=== PATIENT | male | born 1960 | race African-American/Black ===

== ENCOUNTER 2016-09-22 00:49 | Emergency (ER) | payer OTHER ==
[2016-09-22 00:57] VITALS: TEMP 97.6
--- NOTE | 2016-09-22 01:48 | ED ---
Psych HPI - General Chief Complaint: Psychiatric Symptoms Stated Complaint: Hearing Voices/Suicidal Time Seen by Provider: 09/22/16 01:14 Source: patient Mode of arrival: ambulatory - History of Present Illness Initial Comments: This patient is a 56-year-old man who presents stating that he is having hallucinations. He states that he is seeing people and hearing voices that are telling him to harm himself. The patient states that he had been doing relatively well until last night when he "relapsed and smoked a marijuana cigarette that I think was laced with cocaine." Since that time the patient states he is having hallucinations. Complaint: other -: hour(s) Associated Psychiatric Symptoms: auditory hallucinations Worsens With: drug use Context: recent drug abuse Associated Symptoms: denies other symptoms - Related Data Home Medications Medication Instructions Recorded Confirmed Acyclovir [Zovirax] 400 mg PO BID 09/22/16 09/22/16 Citalopram Hydrobromide [CeleXA] 40 mg PO DAILY 09/22/16 09/22/16 Mirtazapine [Remeron] 15 mg PO HS 09/22/16 09/22/16 QUEtiapine FUMARATE [Seroquel Xr] 400 mg PO HS 09/22/16 09/22/16 buPROPion HCL [Wellbutrin XL] 150 mg PO DAILY 09/22/16 09/22/16 risperiDONE [RisperDAL] 1 mg PO DAILY 09/22/16 09/22/16 Allergies Allergy/AdvReac Type Severity Reaction Status Date / Time No Known Allergies Allergy Verified 09/22/16 00:57 Review of Systems ROS Statement: Those systems with pertinent positive or pertinent negative responses have been documented in the HPI. ROS Other: All systems not noted in ROS Statement are negative. Constitutional: Denies: fever, chills Respiratory: Denies: cough, dyspnea Cardiovascular: Denies: chest pain Gastrointestinal: Denies: abdominal pain, vomiting, diarrhea Musculoskeletal: Denies: back pain Neurological: Denies: headache, weakness Psychiatric: Reports: anxiety, auditory hallucinations, visual hallucinations, suicidal thoughts Past Medical History Additional Past Medical History / Comment(s): bipolar, depression, schizophrenia History of Any Multi-Drug Resistant Organisms: None Reported Past Surgical History: No Surgical Hx Reported Past Psychological History: Anxiety, Bipolar, Depression, Schizophrenia Smoking Status: Current every day smoker Past Alcohol Use History: None Reported Past Drug Use History: None Reported General Exam Limitations: no limitations General appearance: alert, in no apparent distress Respiratory exam: Present: normal lung sounds bilaterally. Absent: respiratory distress, wheezes, rales, rhonchi, stridor Cardiovascular Exam: Present: regular rate, normal rhythm, normal heart sounds. Absent: systolic murmur, diastolic murmur, rubs, gallop Extremities exam: Present: normal inspection, normal capillary refill. Absent: pedal edema, calf tenderness Back exam: Present: normal inspection. Absent: CVA tenderness (R), CVA tenderness (L) Neurological exam: Present: alert, normal gait Psychiatric exam: Present: normal affect. Absent: agitated, anxious, flat affect, manic, homicidal ideation, suicidal ideation Skin exam: Present: warm, dry, intact, normal color. Absent: rash Course Vital Signs 09/22/16 00:52 Temperature 97.6 F Pulse Rate 87 Respiratory 18 Rate Blood Pressure 123/79 O2 Sat by Pulse 96 Oximetry Disposition Clinical Impression: Substance abuse, Schizophrenia Disposition: HOME SELF-CARE Condition: Fair Instructions: Polysubstance Abuse (ED), Schizophrenia (ED) Referrals: None,Stated [Primary Care Provider] - 1-2 days Sixto Pierre MD [STAFF PHYSICIAN] - 1-2 days
[2016-09-22] MEDS ORDERED: OLANZapine ODT 5 MG TAB PO STA (02:47)
[2016-09-22] MEDS ORDERED: risperiDONE 1 MG TAB PO STA (02:49)
[2016-09-22] MEDS ORDERED: buPROPion XL 150 MG TAB.ER.24H PO STA (02:49)
[2016-09-22 03:28] VITALS: BP 117/68; PULSE 82; RESP 16
== END 2016-09-22 03:28 | disposition home or self-care (01) ==
LOC: EC 00:49
DX: F12.10 Cannabis abuse, uncomplicated (principal); F20.9 Schizophrenia, unspecified; F31.9 Bipolar disorder, unspecified; F17.200 Nicotine dependence, unspecified, uncomplicated; Z79.899 Other long term (current) drug therapy
CPT/HCPCS: 82075; 99285

== ENCOUNTER 2016-09-22 13:24 | Inpatient (IN) | payer MEDICAID, OTHER ==
[2016-09-22] MEDS ORDERED: MAGNESIUM HYDROXIDE 2,400 MG/10 ML CUP PO PRN (15:52)
[2016-09-22] MEDS ORDERED: ACETAMINOPHEN TAB 325 MG TAB PO PRN (15:52)
[2016-09-22] MEDS ORDERED: MAG HYDROX/AL HYDROX/SIMETH 30 ML CUP PO PRN (15:52)
[2016-09-22] MEDS: NICOTINE 7MG/24HR PATCH TRANSDERM SCH (16:03)
[2016-09-22] MEDS: QUEtiapine XR 200 MG TAB.ER.24H PO SCH (21:45)
[2016-09-23] MEDS ORDERED: DULoxetine HCL 60 MG CAPSULE.DR PO SCH (09:00)
[2016-09-23] MEDS: NICOTINE 7MG/24HR PATCH TRANSDERM SCH (10:23)
--- NOTE | 2016-09-23 16:39 | HP ---
DATE OF ADMISSION: IDENTIFYING DATA: Patient is a 56-year-old single -[place] male who is currently staying with a friend. Patient has been on Social Security income for the last 4 years for mental illness. Patient was admitted to the mental health unit through the emergency room on a petition and certificate. HISTORY OF PRESENT ILLNESS: Patient stated that he was recently at [facility] for 6 weeks for alcohol and cocaine rehab, and after he was released from [facility] he was [facility], and he decided to move out a couple of days ago with a friend. Patient stated, "I just had one beer and I smoked one joint, but I didn't realize that it was laced with cocaine." Today patient presented with feeling depressed, hopeless, helpless, overwhelmed, not sleeping at night, endorsing auditory hallucination; however, he denied any command voices. He stated that he was suicidal yesterday because "I didn't have my psych medication." I did review the [facility] recorded, and it seems that the patient was seen by Dr. Owens on September 18, 2016, for evaluation; however, patient at that time did not bring any medication with him and did not bring any pill bottles, and that is why he was not given any prescription. He was asked to come back in one week from September 18 with his pill bottles with him. Patient stated that he has had "bipolar schizophrenia all my life." When I did ask him to tell me what symptoms, patient was very vague in his presentation. He stated that he has a lot of paranoia and suspicious feelings, hearing voices, no motivation or interest to do anything. He has been having trouble falling asleep and staying asleep. Appetite has been fluctuating. He gained 10 pounds over the last year. He does feel that people are out to get him. I tried to find what triggered this episode and why he decided to leave the [facility]. Patient said, "I am very tired now because I didn't sleep. I just need to be back on my medication." He claimed that he could not afford financially the [facility], and that is why he decided to move out stay with a friend. PAST PSYCHIATRIC HISTORY: He had one suicide attempt at age 50, but according to him he has been having chronic suicidal ideation most of his life. According to him, he has had at least 12 to 13 previous inpatient psychiatric hospitalizations. His last psych hospitalization was 3 months ago in [place]. Diagnoses were major depression with psychotic features, polysubstance use disorder. Patient is currently at [facility]. PAST MEDICATION: He was on Cymbalta and Remeron in the past. SUBSTANCE ABUSE HISTORY: Extensive substance abuse history. 1. Alcohol. He started drinking alcohol at age 15. The last time he drank alcohol was just a couple of days before his admission. According to him, he just had one beer. 2. Marijuana. He has been smoking marijuana since age 15. Last use was 2 days ago. 3. Cocaine. He started using cocaine at age 22, and he stated that he did not use it for 6 months; however, patient's urine drug screen is positive for marijuana and cocaine. Patient has had at least 12 inpatient rehab program admissions. His last inpatient rehab admission was a couple of months ago at [facility], but he stated he has been in the [facility] more than 8 times, [facility] twice, and he was [facility] from [facility]. FAMILY HISTORY OF PSYCHIATRIC ILLNESS: There is no history of schizophrenia or mental illness in the family, but most of his family members have issues and problems with substances and alcohol. SOCIAL HISTORY: Patient was born in [place]. He had 2 brothers and 2 sisters. He was raised by his mother and grandmother. When he was 10 years of age he moved to [place], and he stated that he was living in a rough neighborhood. He moved from [place] to [place] in 1972 and he was living in [place]. He finished high school in [place]. 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 Last time he worked was 3 or 4 years ago, and since then he has been on Social Security income due to mental illness. He never has been . He has one son who is currently living in [place]. MEDICAL HISTORY: Patient had surgery for a right inguinal hernia. Also he had surgery for priapism. ALLERGIES: ASPIRIN. LEGAL PROBLEMS: He has had extensive legal problems since age 19, but he denied any probation or current charge for at least 6 years. Patient stated that he was arrested for stealing or drug related problem. [facility] and [facility] for one year. MENTAL STATUS EXAMINATION: Patient presented as an -[place] male who looks his stated age, dressed up in hospital gown, very evasive, guarded. He does give mixed answers. He is focusing about wanting to get all his medication that he was on before. He gave good eye contact. Speech is coherent. He reported that he has been hearing voices, but "it's not command in nature to hurt" himself or anybody else. A lot of paranoia and suspicious feeling, persecutory delusions that people are out to get him. He expressed feeling hopeless, helpless and severely depressed. Affect is blunted. He presented with chronic suicidal ideation but was able to contract for safety. His thinking is very concrete, but his associations were coherent and logical. His insight to his substance abuse is questionable, but in general insight and judgment are fair. Patient did ask for help when he needed it. Cognitive function is grossly intact. STRENGTHS: Patient is able to ask for help when he needs it and he has income. WEAKNESSES: Patient has extensive history of substance abuse, recurrent mental health issues. Currently he is homeless. DIAGNOSES: 1. Major depression, recurrent, with psychotic feature. 2. Alcohol use disorder. 3. Cocaine use disorder. 4. Cannabis use disorder. RECOMMENDATION: Patient was admitted already to the mental health unit. Will continue inpatient hospitalization for treatment of depressive symptoms and ( ) disorder. Patient is willing to sign himself in voluntarily. Suicide precautions with 15-minute checks. I will put him back on Seroquel XR 400 mg for the paranoia and the auditory hallucinations, Celexa for depression. Will encourage patient to participate in therapeutic groups and activities groups, evaluate patient on a daily basis and see if there is response to treatment. Will discuss his discharge plan. Most likely it will be [facility].
[2016-09-23] MEDS ORDERED: MIRTAZAPINE 15 MG TAB PO SCH (21:00)
[2016-09-23] MEDS: ACYCLOVIR 200 MG CAP PO SCH (21:35)
[2016-09-23] MEDS: QUEtiapine XR 200 MG TAB.ER.24H PO SCH (21:36)
[2016-09-24 06:32] VITALS: BP 136/86; PULSE 59; RESP 18; TEMP 97.7
[2016-09-24] MEDS ORDERED: CITALOPRAM HYDROBROMIDE 20 MG TAB PO SCH (09:00)
--- NOTE | 2016-09-24 09:13 | P.CONS ---
History of Present Illness - Reason for Consult Consult date: 09/23/16 Medical management - History of Present Illness This is a 56-year-old -Z[place] male with past history of bipolar, schizophrenia, anxiety, tobacco use and dependence quitting a couple weeks ago, cocaine and marijuana use. Patient states that he has been off his medications because every time he took them in his stomach was bothering him. He states his stomach is bothering him because he is not eating right. Patient states that he is feeling much better at the time of this evaluation because he slept last night. He also states that he came into the hospital alone. According to documentation patient was on petition and cert from [facility] because he was hearing voices and feeling suicidal. TSH 1.460. Patient denies any physical concerns at this time. Review of Systems Psychiatric: Reports depression, Reports hallucinations, Reports insomnia, Reports suicidal ideation Past Medical History Past Medical History: No Reported History History of Any Multi-Drug Resistant Organisms: None Reported Past Surgical History: Hernia Repair Additional Past Surgical History / Comment(s): Right inguinal hernia repair Past Anesthesia/Blood Transfusion Reactions: No Reported Reaction Past Psychological History: Anxiety, Bipolar, Depression, Schizophrenia Smoking Status: Current every day smoker Past Alcohol Use History: None Reported Additional Past Alcohol Use History / Comment(s): Patient is a smoker one pack per day since he was 17 years of age. He states he quit smoking a couple weeks ago. He uses alcohol occasionally. He also smokes weed. He has used cocaine in the past but did not inject it. He has been clean and went to [place] in the past. Past Drug Use History: None Reported - Past Family History Father Additional Family Medical History / Comment(s): Father at age 73 from a motor vehicle accident. Mother Additional Family Medical History / Comment(s): Mom at age 56 from breast cancer with brain tumor and she also had mental health issues. Sister(s) Additional Family Medical History / Comment(s): Patient has 2 sisters with no major medical problems. Brother(s) Additional Family Medical History / Comment(s): Patient has 1 brother that was killed. Patient did not give details. Son(s) Additional Family Medical History / Comment(s): He has one son with no major medical problems. Medications and Allergies Home Medications Medication Instructions Recorded Confirmed Type Acyclovir [Zovirax] 400 mg PO BID 09/22/16 09/22/16 History Citalopram Hydrobromide [CeleXA] 40 mg PO DAILY 09/22/16 09/22/16 History Clotrimazole [Lotrimin AF] 1 applic TOPICAL DAILY 09/22/16 09/22/16 History Hydrocortisone Cream 1 applic TOPICAL DAILY 09/22/16 09/22/16 History [Hydrocortisone 1% Cream] Mirtazapine [Remeron] 15 mg PO HS 09/22/16 09/22/16 History QUEtiapine FUMARATE [Seroquel Xr] 400 mg PO HS 09/22/16 09/22/16 History buPROPion HCL [Wellbutrin XL] 150 mg PO DAILY 09/22/16 09/22/16 History clonazePAM [KlonoPIN] 1 mg PO QAM 09/22/16 09/22/16 History risperiDONE [RisperDAL] 1 mg PO HS 09/22/16 09/22/16 History Allergies Allergy/AdvReac Type Severity Reaction Status Date / Time peanut [Peanut Butter] Allergy Unknown Verified 09/22/16 15:43 tomato Allergy Unknown Verified 09/22/16 15:43 seafood Allergy Unknown Uncoded 09/22/16 15:43 Physical Exam Vitals: Vital Signs Temp Pulse Resp BP 09/23/16 05:54 98.1 F 61 16 144/82 09/22/16 15:33 98.4 F 78 17 129/78 Intake and Output 09/22/16 09/23/16 09/23/16 22:59 06:59 14:59 Other: Weight 88.7 kg Gen: This is a 56-year-old after the [place] male. He is cooperative and appears to be in no acute distress. HEENT: Head is atraumatic, normocephalic. Pupils equal, round. Sclerae is anicteric. NECK: Supple. No JVD. No lymphadenopathy. No thyromegaly. LUNGS: Clear to auscultation. No wheezes or rhonchi. No intercostal retractions. HEART: Regular rate and rhythm. No murmur. ABDOMEN: Soft. Bowel sounds are present. No masses. No tenderness. EXTREMITIES: No pedal edema. No calf tenderness. NEUROLOGICAL: Patient is awake, alert and oriented x3. Cranial nerves 2 through 12 are grossly intact. Assessment and Plan Plan: 1. Depression with suicidal ideation a patient with history of schizophrenia bipolar. Patient admitted to the mental health unit. Continue current plan of care. 2. Tobacco use and dependence. Continue nicotine patch. 3. History of cocaine use and marijuana use. Continue as in #1. Impression and plan of care have been directed as dictated by the signing physician. Niesha Frias nurse practitioner acting as scribe for signing physician. Time with Patient: Greater than 30
[2016-09-24] MEDS: ACYCLOVIR 200 MG CAP PO SCH (10:24)
[2016-09-24] MEDS: NICOTINE 7MG/24HR PATCH TRANSDERM SCH (10:26)
--- NOTE | 2016-09-25 10:40 | DS ---
DATE OF ADMISSION: 09/22/2016 DATE OF DISCHARGE: 09/24/2016 Consult physician: Mei. Consulting provider: Niesha Frias. Consult reason: For medical management. Do you want consulting provider notified? Yes. DISCHARGE DIAGNOSES: 1. Cocaine use disorder. Cocaine induced psychotic symptoms. 2. Alcohol use disorder. 3. Cannabis use disorder. 4. History of major depression, recurrent, with psychosis. Brief summary of the admission Notes: Patient was admitted to the mental health unit from the emergency room as he was presented with petition saying that the patient has been suicidal. Patient was recently in [place] for 6 weeks for Cocaine and alcohol rehab, then he was released to [facility]. Patient decided to move out from the [facility] 2 days ago and he did relapse on alcohol and cocaine and marijuana. For complete history and physical exam, please refer to my initial evaluation. HOSPITAL COURSE: Patient was admitted to the mental health unit on voluntary basis. Patient was minimizing his addiction, despite I did review with him the urine drug screen that was positive for marijuana and cocaine. He said, "I did not know that my marijuana was laced with cocaine." He stated that he did relapse because he was not on his psychotropic medication. I did discuss with him his previous psychotropic medications according to him, he was stable on Celexa 40 mg daily, mirtazapine 15 mg at bedtime and Seroquel XR 400 mg. Also he claims that he was on Wellbutrin 150 mg in the morning, Klonopin 1 mg in the morning and Risperdal 1 mg at bedtime. I did discuss with him that it seems that he is taking 3 different antidepressant medication and 2 different antipsychotic in addition, with his history of substance abuse I will not recommend any benzodiazepine. Patient was receptive and I did start him on Celexa only 20 mg as I did not see feel that he is depressed and I kept him on the same dose of the Seroquel 400 mg and Remeron 15 mg for sleep. During his 24 hours stay the patient was lying in bed just up to asking for medication or for his needs. Very vague regarding his extensive legal program; however, we did receive call from the [employer] department that there is a warrant for his arrest. As the patient was not suicidal or homicide, patient was discharged from the mental health unit to the [facility] archivist department. Mental status exam at the time of the discharge, patient is alert. He was sitting calmly, good eye contact. Speech is spontaneous. Thought process is linear. He is reporting no homicidal or suicide ideation, intent or plan. He does not feel hopeless or helpless. There is no evidence of hypomania or lizett. There is no evidence of psychosis. His insight regarding his extensive drug use is very limited. Cognitive ability has been remained stable after the hospitalization. PLAN: 1. Patient will be discharged from the mental health unit today. Patient will be picked up by the [facility] department. 2. Patient has an appointment at [facility] on September 25 at 1:00 p.m. 3. Patient was instructed to abstain from marijuana, cocaine and alcohol, I did discuss with him that he needs to go back to the [facility] to finish his recovery but he was reluctant. 4. Patient was given one-month supply for escitalopram 20 mg in the morning and Remeron 15 mg at bedtime and Seroquel XR 400 mg as mood stabilizer and for psychosis. 5. There is no eminent safety risk and patient is appropriate for transition back to outpatient care. 6. Patient condition at the time of the discharge, stable.
== END 2016-09-24 16:10 | disposition home or self-care (01) | DRG 897 ==
LOC: 3MHU 14:22
PROVIDERS: ADMIT Psychiatry & Neurology Psychiatry; ATTEND Psychiatry & Neurology Psychiatry
DX: F14.151 Cocaine abuse with cocaine-induced psychotic disorder with hallucinations (principal); R45.851 Suicidal ideations; F20.9 Schizophrenia, unspecified; F10.10 Alcohol abuse, uncomplicated; F12.10 Cannabis abuse, uncomplicated; F17.200 Nicotine dependence, unspecified, uncomplicated; F41.9 Anxiety disorder, unspecified; F32.9 Major depressive disorder, single episode, unspecified; G47.00 Insomnia, unspecified; Z79.899 Other long term (current) drug therapy
CPT/HCPCS: 84443

== ENCOUNTER 2016-09-25 03:15 | Emergency (ER) | payer OTHER ==
--- NOTE | 2016-09-25 03:36 | ED ---
General Adult HPI - General Chief complaint: Psychiatric Symptoms Stated complaint: Mental Health Time Seen by Provider: 09/25/16 03:24 Source: patient, RN notes reviewed Mode of arrival: ambulatory Limitations: no limitations - History of Present Illness Initial comments: Patient is a pleasant 56-year-old male presenting to the emergency Department with depression and suicidal thoughts. Patient was recently admitted to the psychiatric unit. Patient was discharged today went to skilled nursing. Patient states he is more depressed now. Patient admits to drinking one beer and smoking marijuana that may have been laced. Patient has thoughts of cutting himself with a knife and had to take the knife away from himself. Patient does have anger issues and thoughts of harming people however no specific person. Patient does see people who tell him to harm himself. No physical complaints. - Related Data Home Medications Medication Instructions Recorded Confirmed Acyclovir [Zovirax] 400 mg PO BID 09/22/16 09/22/16 Clotrimazole [Lotrimin AF] 1 applic TOPICAL DAILY 09/22/16 09/22/16 Hydrocortisone Cream 1 applic TOPICAL DAILY 09/22/16 09/22/16 [Hydrocortisone 1% Cream] Previous Rx's Medication Instructions Recorded Citalopram Hydrobromide [CeleXA] 20 mg PO DAILY 30 Days 09/24/16 Mirtazapine [Remeron] 15 mg PO HS 30 Days 09/24/16 QUEtiapine FUMARATE [Seroquel Xr] 400 mg PO HS 30 Days 09/24/16 Allergies Allergy/AdvReac Type Severity Reaction Status Date / Time peanut [Peanut Butter] Allergy Unknown Verified 09/25/16 03:22 tomato Allergy Unknown Verified 09/25/16 03:22 seafood Allergy Unknown Uncoded 09/25/16 03:22 Review of Systems ROS Statement: Those systems with pertinent positive or pertinent negative responses have been documented in the HPI. ROS Other: All systems not noted in ROS Statement are negative. Constitutional: Denies: fever Eyes: Denies: eye pain ENT: Denies: ear pain Respiratory: Denies: cough Cardiovascular: Denies: chest pain Endocrine: Denies: fatigue Gastrointestinal: Denies: abdominal pain Genitourinary: Denies: dysuria Musculoskeletal: Denies: back pain Skin: Denies: rash Neurological: Denies: headache Psychiatric: Reports: depression, visual hallucinations, suicidal thoughts Past Medical History Past Medical History: No Reported History Additional Past Medical History / Comment(s): bipolar, depression, schizophrenia History of Any Multi-Drug Resistant Organisms: None Reported Past Surgical History: Hernia Repair Additional Past Surgical History / Comment(s): Right inguinal hernia repair Past Anesthesia/Blood Transfusion Reactions: No Reported Reaction Past Psychological History: Anxiety, Bipolar, Depression, Schizophrenia Smoking Status: Current every day smoker Past Alcohol Use History: None Reported Additional Past Alcohol Use History / Comment(s): Patient is a smoker one pack per day since he was 17 years of age. He states he quit smoking a couple weeks ago. He uses alcohol occasionally. He also smokes weed. He has used cocaine in the past but did not inject it. He has been clean and went to [place] in the past. Past Drug Use History: None Reported - Past Family History Father Additional Family Medical History / Comment(s): Father at age 73 from a motor vehicle accident. Mother Additional Family Medical History / Comment(s): Mom at age 56 from breast cancer with brain tumor and she also had mental health issues. Sister(s) Additional Family Medical History / Comment(s): Patient has 2 sisters with no major medical problems. Brother(s) Additional Family Medical History / Comment(s): Patient has 1 brother that was killed. Patient did not give details. Son(s) Additional Family Medical History / Comment(s): He has one son with no major medical problems. General Exam Limitations: no limitations General appearance: alert, in no apparent distress Head exam: Present: atraumatic Eye exam: Present: normal appearance, PERRL ENT exam: Present: normal oropharynx Neck exam: Present: normal inspection Respiratory exam: Present: normal lung sounds bilaterally Cardiovascular Exam: Present: regular rate, normal rhythm GI/Abdominal exam: Present: soft. Absent: tenderness Extremities exam: Present: normal inspection Neurological exam: Present: alert Psychiatric exam: Present: flat affect Skin exam: Absent: rash Course Vital Signs 09/25/16 03:20 Temperature 98.6 F Pulse Rate 100 Respiratory 16 Rate Blood Pressure 147/62 O2 Sat by Pulse 96 Oximetry - Reevaluation(s) Reevaluation #1: 09/25/16 06:54 Patient seen by mental health services who did set up patient for an appointment today at 1 PM [facility] and recommends discharge. Patient updated. Patient contracts for safety. Medical Decision Making - Lab Data Lab Results 09/25/16 Range/Units 03:15 Urine Opiates Screen Not Detected (NotDetected) Ur Oxycodone Screen Not Detected (NotDetected) Urine Methadone Screen Not Detected (NotDetected) Ur Propoxyphene Screen Not Detected (NotDetected) Ur Barbiturates Screen Not Detected (NotDetected) U Tricyclic Antidepress Detected H (NotDetected) Ur Phencyclidine Scrn Not Detected (NotDetected) Ur Amphetamines Screen Not Detected (NotDetected) U Methamphetamines Scrn Not Detected (NotDetected) U Benzodiazepines Scrn Not Detected (NotDetected) Urine Cocaine Screen Detected H (NotDetected) U Marijuana (THC) Screen Not Detected (NotDetected) Disposition Clinical Impression: Depression Disposition: HOME SELF-CARE Condition: Stable Instructions: Depression (ED) Additional Instructions: Please follow-up today with [facility] at 1:00 as planned. Return for thoughts of harming yourself, thoughts of harming others, worsening symptoms or other concerns. No drug or alcohol use. Referrals: None,Stated [Primary Care Provider] - 1-2 days Mira Rasheed MD [STAFF PHYSICIAN] - 1-2 days Sixto Pierre MD [STAFF PHYSICIAN] - 1-2 days
[2016-09-25 07:03] VITALS: BP 131/70; PULSE 74; RESP 18; TEMP 97.6
== END 2016-09-25 07:03 | disposition home or self-care (01) ==
LOC: EC 03:15
DX: F31.9 Bipolar disorder, unspecified (principal); F20.9 Schizophrenia, unspecified; F41.9 Anxiety disorder, unspecified; Z87.891 Personal history of nicotine dependence; Z79.899 Other long term (current) drug therapy; Z91.010 Allergy to peanuts; Z91.013 Allergy to seafood; Z91.018 Allergy to other foods
CPT/HCPCS: 80306; 82075; 99284

== ENCOUNTER 2016-10-14 07:55 | Emergency (ER) | payer OTHER ==
[2016-10-14 08:01] VITALS: TEMP 97.4
--- NOTE | 2016-10-14 08:53 | ED ---
Psych HPI - General Chief Complaint: Psychiatric Symptoms Stated Complaint: mental health Time Seen by Provider: 10/14/16 08:10 Source: patient, RN notes reviewed Mode of arrival: ambulatory - History of Present Illness Initial Comments: This is a 56-year-old male with history depression who presents with complaints of feeling suicidal and actually homicidal. He also states voices are telling him to hurt people and himself this is been going on for about 3 days and this is in spite of taking medications. Patient also feels unsafe. He is demonstrate some paranoia. He denies alcohol or street drugs no fevers chills sweats no trauma or other symptoms. MD Complaint: suicidal ideation, feels depressed, other - Related Data Home Medications Medication Instructions Recorded Confirmed Clotrimazole [Lotrimin AF] 1 applic TOPICAL DAILY PRN 09/22/16 10/14/16 Hydrocortisone Cream 1 applic TOPICAL DAILY PRN 09/22/16 10/14/16 [Hydrocortisone 1% Cream] Benztropine Mesylate [Cogentin] 2 mg PO BID 10/14/16 10/14/16 DULoxetine HCL [Cymbalta] 60 mg PO DAILY 10/14/16 10/14/16 fluPHENAZine DECANOATE [Prolixin 25 mg IM Q7D 10/14/16 10/14/16 Decanoate] Previous Rx's Medication Instructions Recorded Mirtazapine [Remeron] 15 mg PO HS 30 Days 09/24/16 QUEtiapine FUMARATE [Seroquel Xr] 400 mg PO HS 30 Days 09/24/16 Allergies Allergy/AdvReac Type Severity Reaction Status Date / Time peanut [Peanut Butter] Allergy Unknown Verified 10/14/16 08:13 tomato Allergy Unknown Verified 10/14/16 08:13 seafood Allergy Unknown Uncoded 10/14/16 07:57 Review of Systems ROS Statement: Those systems with pertinent positive or pertinent negative responses have been documented in the HPI. ROS Other: All systems not noted in ROS Statement are negative. Past Medical History Past Medical History: No Reported History Additional Past Medical History / Comment(s): bipolar, depression, schizophrenia History of Any Multi-Drug Resistant Organisms: None Reported Past Surgical History: Hernia Repair Additional Past Surgical History / Comment(s): Right inguinal hernia repair Past Anesthesia/Blood Transfusion Reactions: No Reported Reaction Past Psychological History: Anxiety, Bipolar, Depression, Schizophrenia Smoking Status: Current every day smoker Past Alcohol Use History: None Reported Additional Past Alcohol Use History / Comment(s): Patient is a smoker one pack per day since he was 17 years of age. He states he quit smoking a couple weeks ago. He uses alcohol occasionally. He also smokes weed. He has used cocaine in the past but did not inject it. He has been clean and went to [place] in the past. Past Drug Use History: None Reported - Past Family History Father Additional Family Medical History / Comment(s): Father at age 73 from a motor vehicle accident. Mother Additional Family Medical History / Comment(s): Mom at age 56 from breast cancer with brain tumor and she also had mental health issues. Sister(s) Additional Family Medical History / Comment(s): Patient has 2 sisters with no major medical problems. Brother(s) Additional Family Medical History / Comment(s): Patient has 1 brother that was killed. Patient did not give details. Son(s) Additional Family Medical History / Comment(s): He has one son with no major medical problems. General Exam - General Exam Comments Initial Comments: This is a well-developed well-nourished awake alert oriented 3 male Limitations: no limitations General appearance: anxious Head exam: Present: atraumatic, normocephalic, normal inspection Eye exam: Present: normal appearance, PERRL, EOMI. Absent: scleral icterus, conjunctival injection, periorbital swelling ENT exam: Present: normal exam, mucous membranes moist Neck exam: Present: normal inspection. Absent: tenderness, meningismus, lymphadenopathy Respiratory exam: Present: normal lung sounds bilaterally. Absent: respiratory distress, wheezes, rales, rhonchi, stridor Cardiovascular Exam: Present: regular rate, normal rhythm, normal heart sounds. Absent: systolic murmur, diastolic murmur, rubs, gallop, clicks GI/Abdominal exam: Present: soft, normal bowel sounds. Absent: distended, tenderness, guarding, rebound, rigid Extremities exam: Present: normal inspection, full ROM, normal capillary refill. Absent: tenderness, pedal edema, joint swelling, calf tenderness Back exam: Present: normal inspection Neurological exam: Present: alert, oriented X3, CN II-XII intact Psychiatric exam: Present: depressed, anxious, flat affect, homicidal ideation, suicidal ideation Skin exam: Present: warm, dry, intact, normal color. Absent: rash Course Vital Signs 10/14/16 07:57 Temperature 97.4 F L Pulse Rate 66 Respiratory 20 Rate Blood Pressure 113/76 O2 Sat by Pulse 99 Oximetry Medical Decision Making - Medical Decision Making The patient was evaluated by [facility] service. He is found to have nothing basically change from his usual presentation. There is a care plan in place patient be discharged with outpatient follow-up. Disposition Clinical Impression: Bipolar disorder Disposition: HOME SELF-CARE Condition: Good Instructions: Bipolar Disorder (ED), Suicide Prevention for Adults (ED)
[2016-10-14 11:05] VITALS: BP 115/65; PULSE 61; RESP 16
== END 2016-10-14 11:05 | disposition home or self-care (01) ==
LOC: EC 07:55
DX: F31.9 Bipolar disorder, unspecified (principal); F20.9 Schizophrenia, unspecified; F41.9 Anxiety disorder, unspecified; Z79.899 Other long term (current) drug therapy; Z91.010 Allergy to peanuts; Z91.018 Allergy to other foods; Z91.013 Allergy to seafood
CPT/HCPCS: 82075; 99284

== ENCOUNTER 2016-11-26 11:22 | Inpatient (IN) | payer MEDICAID, OTHER ==
[2016-11-26] MEDS ORDERED: LORazepam 1 MG TAB PO STA ×2 (11:41→12:25)
--- NOTE | 2016-11-26 11:46 | ED ---
General Adult HPI - General Chief complaint: Psychiatric Symptoms Stated complaint: mental health Time Seen by Provider: 11/26/16 11:35 Source: patient, RN notes reviewed, old records reviewed Mode of arrival: ambulatory Limitations: no limitations - History of Present Illness Initial comments: Chief complaint history of present illness a 56-year-old male to complaint of hearing voices are telling him to hurt himself and hurt others. The patient reports that he was on psychiatric medications while living in a facility but apparently left the facility in his belongings including the medications were given to the police. He's been off them for approximately a week. He denies overdosing on any medications. He also complains of a left axillary abscess that needs to be drained. - Related Data Home Medications Medication Instructions Recorded Confirmed Benztropine Mesylate [Cogentin] 2 mg PO BID 10/14/16 11/26/16 fluPHENAZine DECANOATE [Prolixin 25 mg IM Q7D 10/14/16 11/26/16 Decanoate] risperiDONE [RisperDAL] 1 mg PO HS 11/26/16 11/26/16 Previous Rx's Medication Instructions Recorded Mirtazapine [Remeron] 15 mg PO HS 30 Days 09/24/16 QUEtiapine FUMARATE [Seroquel Xr] 400 mg PO HS 30 Days 09/24/16 Allergies Allergy/AdvReac Type Severity Reaction Status Date / Time peanut [Peanut Butter] Allergy Unknown Verified 11/26/16 11:41 tomato Allergy Unknown Verified 11/26/16 11:41 seafood Allergy Unknown Uncoded 11/26/16 11:35 Review of Systems ROS Statement: Those systems with pertinent positive or pertinent negative responses have been documented in the HPI. Review of systems patient denies any headache no visual acuity changes no sore throat he does have left axillary pain because of an abscess no chest pain shortness breath GI/ complaints. He states he feels anxious and needs some medication help him relax. Is also hearing voices that tell him to hurt himself and hurt others. Does have a past history of bipolar disorder and schizophrenia. All systems reviewed past medical problems significant for bipolar depression and schizophrenia. Surgeries right ankle herniorrhaphy. Family history cancers but of unknown type to the patient. Patient has ALLERGIES to peanuts tomatoes and Cipro. He does smoke he was encouraged to stop denies alcohol use. ROS Other: All systems not noted in ROS Statement are negative. Past Medical History Past Medical History: No Reported History Additional Past Medical History / Comment(s): bipolar, depression, schizophrenia History of Any Multi-Drug Resistant Organisms: None Reported Past Surgical History: Hernia Repair Additional Past Surgical History / Comment(s): Right inguinal hernia repair Past Anesthesia/Blood Transfusion Reactions: No Reported Reaction Past Psychological History: Anxiety, Bipolar, Depression, Schizophrenia Smoking Status: Current every day smoker Past Alcohol Use History: None Reported Additional Past Alcohol Use History / Comment(s): Patient is a smoker one pack per day since he was 17 years of age. He states he quit smoking a couple weeks ago. He uses alcohol occasionally. He also smokes weed. He has used cocaine in the past but did not inject it. He has been clean and went to [place] in the past. Past Drug Use History: None Reported - Past Family History Father Additional Family Medical History / Comment(s): Father at age 73 from a motor vehicle accident. Mother Additional Family Medical History / Comment(s): Mom at age 56 from breast cancer with brain tumor and she also had mental health issues. Sister(s) Additional Family Medical History / Comment(s): Patient has 2 sisters with no major medical problems. Brother(s) Additional Family Medical History / Comment(s): Patient has 1 brother that was killed. Patient did not give details. Son(s) Additional Family Medical History / Comment(s): He has one son with no major medical problems. General Exam - General Exam Comments Initial Comments: General: The patient is awake and alert, sitting he's depressed, hearing voices telling him to hurt himself and hurt others. Also complains of left axillary abscess pain. Vital signs temp 97.5 pulse 77 respiratory rate 18 pulse ox on percent room air blood pressure 136/90 Eye: Pupils are equal, round and reactive to light, extra-ocular movements are intact ; there is normal conjunctiva bilaterally. No signs of icterus. Ears, nose, mouth and throat: There are moist mucous membranes and no oral lesions. Neck: The neck is supple, there is no tenderness, no anterior cervical lymphadenopathy thyroid not enlarged. Cardiovascular: There is a regular rate and rhythm. No murmur, rub or gallop is appreciated. Respiratory: Lungs are clear to auscultation, respirations are non-labored, breath sounds are equal. No wheezes, stridor, rales, or rhonchi. Gastrointestinal: Soft, non-distended, non-tender abdomen without masses or organomegaly noted. There is no rebound or guarding present. No CVA tenderness. Bowel sounds are unremarkable. Back: There is no tenderness to palpation in the midline. There is no obvious deformity. No rashes noted. Musculoskeletal: Normal ROM, no tenderness, There is no pedal edema. There is no calf tenderness or swelling. Sensation intact. Pulses equal bilaterally 2+. Left axillary abscess which will be drained. Neurological: No neuro deficits. Skin: Skin is warm and dry and no rashes or lesions are noted. Psychiatric: Patient is cooperative, flat affect. States he is hearing voices are telling him to hurt himself and hurt others. Has been out of his psychiatric medications for a week or longer. Past history of bipolar disorder and schizophrenia per patient. Limitations: no limitations Course Vital Signs 11/26/16 11:30 Temperature 97.5 F L Pulse Rate 77 Respiratory 18 Rate Blood Pressure 136/90 O2 Sat by Pulse 100 Oximetry Procedures - Procedures Initial comment: procedure using sterile technique and area under the patient's left axilla was cleaned well Betadine and alcohol. Numb and with ethyl chloride. In a stellate incision was made and loculations were disrupted with sterile forceps. Then the sebaceous cyst was empty. No signs of infection. Bandage applied. Dr. Land Medical Decision Making - Medical Decision Making Patient's drug screen was positive for cocaine and marijuana. Negative for Tylenol or aspirin products.Incision and drainage was done on the patient's left axilla. Sebaceous cyst not infected. Bandage applied. - Lab Data Lab Results 11/26/16 11/26/16 Range/Units 12:00 12:00 Salicylates <1.0 mg/dL Urine Opiates Screen Not Detected (NotDetected) Ur Oxycodone Screen Not Detected (NotDetected) Urine Methadone Screen Not Detected (NotDetected) Ur Propoxyphene Screen Not Detected (NotDetected) Acetaminophen <10.0 ug/mL Ur Barbiturates Screen Not Detected (NotDetected) U Tricyclic Antidepress Not Detected (NotDetected) Ur Phencyclidine Scrn Not Detected (NotDetected) Ur Amphetamines Screen Not Detected (NotDetected) U Methamphetamines Scrn Not Detected (NotDetected) U Benzodiazepines Scrn Not Detected (NotDetected) Urine Cocaine Screen Detected H (NotDetected) U Marijuana (THC) Screen Detected H (NotDetected) Disposition Clinical Impression: Schizophrenia, Depression, Continuous auditory hallucinations Disposition: TRANSFER TO PSYCH HOSP/UNIT Condition: Poor Referrals: None,Stated [Primary Care Provider] - 1-2 days
[2016-11-26] MEDS ORDERED: ETHYL CHLORIDE 103.5 ML SPRAY TOPICAL STA (12:14)
[2016-11-26 12:34] LABS: Acetaminophen <10.0 ug/mL; Salicylate <1.0 mg/dL
[2016-11-26] MEDS ORDERED: ACETAMINOPHEN TAB 325 MG TAB PO PRN (20:38)
[2016-11-26] MEDS ORDERED: MAGNESIUM HYDROXIDE 2,400 MG/10 ML CUP PO PRN (20:38)
[2016-11-26] MEDS ORDERED: MAG HYDROX/AL HYDROX/SIMETH 30 ML CUP PO PRN (20:38)
[2016-11-26] MEDS ORDERED: ZIPRASIDONE 20 MG VIAL IM PRN (20:38)
[2016-11-26] MEDS ORDERED: risperiDONE 1 MG TAB PO SCH (21:00)
[2016-11-26] MEDS: BENZTROPINE MESYLATE 1 MG TAB PO SCH (21:27)
[2016-11-26] MEDS: MIRTAZAPINE 15 MG TAB PO SCH (21:28)
[2016-11-27 08:46] VITALS: RESP 18; BMI 27.6
[2016-11-27 09:03] LABS: Basophils % (A) 0 %; CH 32.5; Eosinophils # (A) 0.1 k/uL (0-0.7); Eosinophils % (A) 2 %; HCT 51.1 % (39.0-53.0); HGB 16.1 gm/dL (13.0-17.5); Luc # (Auto) 0.14; Luc % (Auto) 2; Lymphocytes # (A) 1.9 k/uL (1.0-4.8); Lymphocytes % (A) 23 %; MCH 32.2 pg (25.0-35.0); MCHC 31.4 g/dL (31.0-37.0); MCV 102.3 fL (80.0-100.0); Macrocytosis Slight; Mean Platelet Volume 7.4; Monocytes # (A) 0.6 k/uL (0-1.0); Monocytes % (A) 7 %; Neutrophils # (A) 5.4 k/uL (1.3-7.7); Neutrophils % (A) 67 %; RBC 4.99 m/uL (4.30-5.90); WBC 8.1 k/uL (3.8-10.6); WBC (Perox) 8.08
--- NOTE | 2016-11-27 09:11 | P.HP ---
Psychiatric H&P - . H&P Date: 11/27/16 History & Physical: DATE OF SERVICE: 11/27/2016 IDENTIFYING DATA: This patient is a 56-year-old single -Spanish male who was admitted to the mental health unit through emergency room due to suicidal ideation and auditory hallucinations. HISTORY OF PRESENT ILLNESS: The patient presents with irritable mood, uncooperative, poor historian. Patient reports that he is hearing voices and thinking of killing himself. He stated he did not want to talk about this he didn't want to go over the past. He reports that he has made suicide attempts in the past states one time he jumped into a alcantara but can't recall which alcantara or when. Patient states that the voices are telling him to jump in the water. Patient was uncooperative in giving any history.. PAST PSYCHIATRIC HISTORY: Patient has been seen at [facility] according to him, states he was taking Seroquel and it was stopped by somebody. States he has been hospitalized prior to this but he did not state where.. PAST MEDICAL HISTORY: Unknown. ALLERGIES: Peanut tomato seafood. CHEMICAL DEPENDENCY HISTORY: Patient's UDS was positive for cannabis and cocaine. She states that he uses cocaine. No history provided. FAMILY PSYCHIATRIC HISTORY: No history provided. FAMILY CHEMICAL DEPENDENCY HISTORY: No history provided. LEGAL HISTORY: No history provided. SOCIAL HISTORY: No history provided. MENTAL STATUS EXAM: Patient alert and oriented 3,poor eye contact, fair groomed in hospital attire.. Speech normal volume, reduced rate and production. Minimal interaction, yes or no or 1 word answers Coherent, logical and goal directed thought process. No GODFREY, no FOI. No TB/TW/ TI +auditory and command hallucinations. Memory impaired vs uncooperative Cognition below average vs uncooperative Unable to test for memory Mood irritable/hostile/uncooperative/, affect flat, congruent with mood. Positive suicidal ideation, denies homicidal ideation. Insight none; Judgment impaired . STRENGTHS: Sought treatment. WEAKNESSES: Psychosis and addiction. IMPRESSIONS: 36-year-old -Spanish male presented to the emergency room with auditory hallucinations and suicidal ideation by the history he has not been taking his antipsychotic medication that may be Seroquel, unclear why report from ER states that it was lost, patient reports that some doctor took him off of it. Patient with history of cocaine and marijuana in his urine, appears to have a chronic issue with cocaine or drugs of abuse. Unclear about past treatment, housing, and current treatment. Psychosis, unspecified Suicide ideation Rule out schizophrenic spectrum Cocaine use moderate to severe Cannabis use moderate to severe Noncompliance PLAN: Continue psychiatric inpatient admission for safety, information gathering for past treatment, and assessment for treatment. Suicide precaution 15 minute checks. History and physical pending. Labs within normal limits. The patient would be a candidate for injection mode of treatment, if he is willing. Consider intake if no contraindication. Will begin oral for trial of tolerance. If patient has already been tried on injectable antipsychotic medications and failed, he would be a candidate for Clozaril. Social work to help with history gathering, discharge planning. . Allergies Allergy/AdvReac Type Severity Reaction Status Date / Time peanut Peanut Butter Allergy Unknown Verified 11/26/16 11:41 tomato Allergy Unknown Verified 11/26/16 11:41 seafood Allergy Unknown Uncoded 11/26/16 11:35 Vital Signs Temp 98.8 F 11/27/16 08:37 Pulse 73 11/27/16 08:37 Resp 18 11/27/16 08:37 BP 133/81 11/27/16 08:37 Pulse Ox 100 11/26/16 11:30 Intake & Output 11/26/16 11/27/16 11/27/16 18:59 06:59 18:59 Weight 83.915 kg 80.1 kg Laboratory Last Values Salicylates <1.0 mg/dL 11/26/16 12:00 Urine Opiates Screen Not Detected (NotDetected) 11/26/16 12:00 Ur Oxycodone Screen Not Detected (NotDetected) 11/26/16 12:00 Urine Methadone Screen Not Detected (NotDetected) 11/26/16 12:00 Ur Propoxyphene Screen Not Detected (NotDetected) 11/26/16 12:00 Acetaminophen <10.0 ug/mL 11/26/16 12:00 Ur Barbiturates Screen Not Detected (NotDetected) 11/26/16 12:00 U Tricyclic Antidepress Not Detected (NotDetected) 11/26/16 12:00 Ur Phencyclidine Scrn Not Detected (NotDetected) 11/26/16 12:00 Ur Amphetamines Screen Not Detected (NotDetected) 11/26/16 12:00 U Methamphetamines Scrn Not Detected (NotDetected) 11/26/16 12:00 U Benzodiazepines Scrn Not Detected (NotDetected) 11/26/16 12:00 Urine Cocaine Screen Detected (NotDetected) H 11/26/16 12:00 U Marijuana (THC) Screen Detected (NotDetected) H 11/26/16 12:00 11/27/16 08:52
[2016-11-27 09:42] LABS: ALT 17 U/L (21-72); AST 15 U/L (17-59); Alkaline Phosphatase 99 U/L (38-126); Anion Gap 9 mmol/L; Blood Urea Nitrogen 10 mg/dL (9-20); Calcium 9.8 mg/dL (8.4-10.2); Carbon Dioxide 29 mmol/L (22-30); Chloride 106 mmol/L (98-107); Glucose 107 mg/dL (74-99); Non-African American GFR(MDRD) >60 (>60 ml/min/1.73 sqM); Potassium 4.3 mmol/L (3.5-5.1); Sodium 144 mmol/L (137-145); Total Bilirubin 0.6 mg/dL (0.2-1.3); Total Protein 7.3 g/dL (6.3-8.2)
[2016-11-27] MEDS: NICOTINE 14MG/24HR PATCH TRANSDERM SCH (10:24)
[2016-11-27] MEDS: BENZTROPINE MESYLATE 1 MG TAB PO SCH ×2 (10:24→21:50)
[2016-11-27] MEDS ORDERED: fluPHENAZine DECANOATE 25 MG/ML 5ML MDV IM ONE (11:30)
--- NOTE | 2016-11-27 19:39 | CONS ---
DATE OF CONSULTATION: REASON FOR CONSULTATION: Medical history and physical. HISTORY OF PRESENTING ILLNESS: This is a 56-year-old gentleman with a history of schizophrenia who comes into the hospital with complaints of hearing voices that are asking him to kill other people and to kill himself as well. He has made suicide attempts in the past. Patient states his main medical complaints are some epigastric pain. States that he also has some chronic pain in his lower back and burning pain in his extremities. States he has auditory hallucinations. Most of the history is obtained from medical chart review. In the emergency room, patient's UDS was positive for cannabis and cocaine. REVIEW OF SYSTEMS: Deferred due to patient's current medical condition. Home medications were reviewed on the history and physical. Past medical history includes: 1. Bipolar. 2. Depression. 3. Schizophrenia. Surgical history includes right inguinal hernia repair. SOCIAL HISTORY: Ongoing tobacco use. Polysubstance use. No significant alcohol use is reported by the patient. FAMILY HISTORY: Breast cancer is noted in his mother. PHYSICAL EXAMINATION: Vitals are within normal limits. Patient appears to be alert, oriented x3. Extraocular movements are intact. Pupils are equal, round and react to light and accommodation. Neck is supple. No JVD. HEART: S1, S2 heard. Regular rate and rhythm. No murmurs appreciated. LUNGS: Good air movement. Clear to auscultation. ABDOMEN: Soft, nontender. No organomegaly. NEURO: No focal motor or sensory deficits noted. No dysdiadochokinesia noted. Patient also complains of an axillary wound which was lanced in the emergency room. On examination, patient notes a tender, indurated lesion on the superolateral area of the left axilla. LABORATORY DATA: Hemoglobin 16.1, hematocrit 51.1, platelets of 355. White count 8.1. Sodium 144, potassium 4.3, chloride 106, bicarb 29. BUN 10, creatinine 1.03. Cocaine and marijuana were noted. ASSESSMENT AND PLAN: 1. Infected sebaceous cyst. 2. Schizophrenia with suicidal ideation. 3. Polysubstance use. 4. Ongoing tobacco use. PLAN: Will start the patient on doxycycline 100 mg p.o. b.i.d. for 7 days. Patient is recommended to maintain hygiene, shower twice daily. Change dressing daily. Local antibiotic cream will be recommended. Thank you for the consultation. Will follow.
[2016-11-27] MEDS: MIRTAZAPINE 15 MG TAB PO SCH (21:50)
[2016-11-27] MEDS: DOXYCYCLINE 50 MG CAP PO SCH (21:50)
[2016-11-27] MEDS: NEOMYCIN-BACITRACIN-POLY OINT 14 GM TUBE TOPICAL PRN (23:15)
[2016-11-28 06:49] VITALS: TEMP 97.8
[2016-11-28] MEDS: DOXYCYCLINE 50 MG CAP PO SCH (08:12)
[2016-11-28] MEDS: NICOTINE 14MG/24HR PATCH TRANSDERM SCH (08:12)
[2016-11-28] MEDS: BENZTROPINE MESYLATE 1 MG TAB PO SCH (08:12)
--- NOTE | 2016-11-28 08:51 | P.DS ---
Providers Date of admission: 11/26/16 18:46 Expected date of discharge: 11/28/16 Attending physician: Taya Rock MD Consults: 11/26/16 20:38 Consult Physician Routine Consulting Provider: Db Swift Consult Reason/Comments: follow up H & P Do you want consulting provider notified?: Yes Primary care physician: Stated None Hospital Course: ADMISSION HISTORY: Patient was admitted through the emergency room after he presented complaining of auditory hallucinations and suicidal ideation. He was admitted to our mental health unit. Patient was uncooperative with the evaluation refusing to answer most questions of his history, just stating that he was suicidal and having voices in his head telling him to kill himself "why do I have to tell you this they're just saying go jump in the alcantara" at the time of evaluation we had no history from [facility]. His UDS was positive for cocaine and marijuana. HOSPITAL COURSE: Patient was also uncooperative with social media job titles, patient refused to go to groups, and when encouraged to do so he attended a few minutes and then would leave. He was noted yesterday afternoon in the library watching TV. It was noted that he receives a weekly injection of Prolixin decanoate 25 mg and that he had not received it since late September. It was ordered and he received it yesterday morning. No problems throughout the evening or night. Patient was not needing any when necessary's for agitation, he was not noted to be responding to internal stimuli by staff, continued to have some irritable interaction with staff. His MCV was elevated suggesting alcohol use, severe. His liver enzymes are low which might signify he is beginning to have cirrhosis. This morning he continues to be sullen. Received history from the mobile crisis unit, patient had been observed for 4 hours on the day of admission at [facility], he was calm and appropriate. Notes state that there has been no recent attempts of suicide. He has a five-year documented history of attempting to get his immediate needs met by going to the hospital and then not following through with outpatient services. Patient alert and oriented 3, poor eye contact, well groomed in hospital attire. Speech normal volume, rate decreased production. Coherent, logical and goal directed thought process. No GODFREY, no FOI. No TB/TW/ TI Reports auditory hallucinations. No paranoid ideation, delusions or IOR. Memory grossly intact Cognition average Patient refused memory testing Mood sullen, irritable, hostile, affect constricted, congruent with mood. Reports suicidal ideation, denies homicidal ideation. Insight none; Judgement grossly intact for treatment purposes ADMISSION DIAGNOSIS: Psychosis unspecified suicidal ideation Cocaine use, moderate to severe Cannabis use, moderate to severe History of alcohol use, by laboratory results ASSESSMENT: 56-year-old -[place] Citizen male presented to our emergency room with report of auditory hallucinations and suicidal ideation. He did not reveal to us that he had been involved with his mobile crisis unit team that day for 4 hours, where he was observed to be calm and appropriate without any evidence of auditory hallucinations or danger to self. He is known by his mobile crisis team, his [facility] as well as staff here in the hospital to come into the emergency room trying to get immediate needs met, such as housing, long-term, relief from legal issues. He has a history of not following through with his outpatient services, his UDS is are frequently if not always positive for cocaine and cannabis alcohol. While inpatient he was uncooperative, refusing evaluation, and not participating in milieu therapy. He spent most of the time in his room sleeping which would be expected after a cocaine binge. Patient has not been responding to internal stimuli, his thought process is goal directed, thoughts are organized and when informed of discharge he was very articulate and verbal. It is very likely that his hallucinations, if he was having them, are directly related to the cocaine he used. He has no past history of suicide attempts although he reports an attempt, there is no documentation of suicide attempts. PLAN: Patient is stable and can be discharged from the inpatient unit. [facility] providers will be informed, outpatient appointment set up. Patient was encourage to not use drugs and etoh and to keep his appointments with [facility]. provided a bus pass, he will go to long-term [facility]. DISCHARGE DIAGNOSIS: Cocaine-induced psychosis Cocaine use, severe Cannabis use, moderate to severe Alcohol use, by laboratory results R/O malingering Pertinent Studies: none Procedures: none Patient Condition at Discharge: Stable Plan - Discharge Summary New Discharge Prescriptions: New Doxycycline [Vibramycin] 100 mg PO BID #12 cap Continue fluPHENAZine DECANOATE [Prolixin Decanoate] 25 mg IM Q7D Benztropine Mesylate [Cogentin] 2 mg PO BID #14 Mirtazapine [Remeron] 15 mg PO HS 30 Days risperiDONE [RisperDAL] 1 mg PO HS #7 Discontinued QUEtiapine FUMARATE [Seroquel Xr] 400 mg PO HS 30 Days Discharge Medication List fluPHENAZine DECANOATE [Prolixin Decanoate] 25 mg IM Q7D 10/14/16 [History] Benztropine Mesylate [Cogentin] 2 mg PO BID #14 11/28/16 [Rx] Doxycycline [Vibramycin] 100 mg PO BID #12 cap 11/28/16 [Rx] Mirtazapine [Remeron] 15 mg PO HS 30 Days 11/28/16 [Rx] risperiDONE [RisperDAL] 1 mg PO HS #7 11/28/16 [Rx] Follow up Appointment(s)/Referral(s): [facility] [Outside] - 12/02/16 4:00 pm (Ian) Renetta Jaeger MD [REFERRING] - 3 Days Patient Instructions/Handouts: Depression (DC), Suicide Prevention for Adults ( DC) Activity/Diet/Wound Care/Special Instructions: no alcohol or street drugs, activity as tolerated, diet as tolerated, remove firearms from home. Follow up with outpatient provider as set up at time of discharge, follow up with primary care in 1-2 days. Call crisis line or [phone] if having thoughts or hurting himself or anyone else. Shower twice daily, apply Triple Antibiotic Ointment to Left Armpit (where sebaceous cyst was drained), and cover with a gauze dressing. Discharge Disposition: HOME SELF-CARE
[2016-11-28 10:09] VITALS: BP 145/89; PULSE 66
[2016-11-28] MEDS: NEOMYCIN-BACITRACIN-POLY OINT 14 GM TUBE TOPICAL PRN (12:53)
== END 2016-11-28 15:22 | disposition home or self-care (01) | DRG 897 ==
LOC: EC 11:22 → 3MHU 18:46
PROVIDERS: ADMIT Psychiatry & Neurology Addiction Medicine; ATTEND Psychiatry & Neurology Addiction Medicine
DX: F14.959 Cocaine use, unspecified with cocaine-induced psychotic disorder, unspecified (principal); R45.851 Suicidal ideations; K74.60 Unspecified cirrhosis of liver; F20.9 Schizophrenia, unspecified; F12.90 Cannabis use, unspecified, uncomplicated; G89.29 Other chronic pain; L72.3 Sebaceous cyst; Z72.0 Tobacco use; Z80.3 Family history of malignant neoplasm of breast; Z91.19 Patient's noncompliance with other medical treatment and regimen; Z79.899 Other long term (current) drug therapy; Z76.5 Malingerer [conscious simulation]; Z91.010 Allergy to peanuts; Z91.013 Allergy to seafood
CPT/HCPCS: 36415; 80053; 80306; 82075; 83520; 84443; 85025

== ENCOUNTER 2016-12-13 23:13 | Emergency (ER) | payer OTHER ==
[2016-12-13 23:17] VITALS: RESP 18
--- NOTE | 2016-12-13 23:37 | ED ---
General Adult HPI - General Chief complaint: Anxiety Stated complaint: Anxiety Time Seen by Provider: 12/13/16 23:22 Source: patient, EMS, RN notes reviewed Mode of arrival: EMS Limitations: no limitations - History of Present Illness Initial comments: 56-year-old male presents to the emergency department with a chief complaint of anxiety. Patient states that he is homeless and he recently was placed in a skilled nursing. Patient states that he has a not been taking any of his medications for the past 2 days he is out of them. Patient states this was a [facility] today but he did not make his appointment. Patient states he just feels restless and is cannot sit still. Patient denies any suicidal or homicidal ideation. Patient denies any sensations to me. Patient states he just needs his Ativan. Patient denies any recent fever, chills, shortness of breath, chest pain, back pain, abdominal pain, nausea vomiting, numbness or tingling, dysuria or hematuria, constipation or diarrhea, headaches or visual changes, or any other current symptoms. - Related Data Home Medications Medication Instructions Recorded Confirmed fluPHENAZine DECANOATE [Prolixin 25 mg IM Q7D 10/14/16 12/13/16 Decanoate] Previous Rx's Medication Instructions Recorded Benztropine Mesylate [Cogentin] 2 mg PO BID #14 11/28/16 Doxycycline [Vibramycin] 100 mg PO BID #12 cap 11/28/16 Mirtazapine [Remeron] 15 mg PO HS 30 Days 11/28/16 risperiDONE [RisperDAL] 1 mg PO HS #7 11/28/16 Allergies Allergy/AdvReac Type Severity Reaction Status Date / Time peanut [Peanut Butter] Allergy Unknown Verified 12/13/16 23:45 tomato Allergy Unknown Verified 12/13/16 23:45 seafood Allergy Unknown Uncoded 12/13/16 23:17 Review of Systems ROS Statement: Those systems with pertinent positive or pertinent negative responses have been documented in the HPI. ROS Other: All systems not noted in ROS Statement are negative. Past Medical History Past Medical History: No Reported History Additional Past Medical History / Comment(s): bipolar, depression, schizophrenia History of Any Multi-Drug Resistant Organisms: None Reported Past Surgical History: Hernia Repair Additional Past Surgical History / Comment(s): Right inguinal hernia repair Past Anesthesia/Blood Transfusion Reactions: No Reported Reaction Past Psychological History: Anxiety, Bipolar, Depression, Schizophrenia Smoking Status: Current every day smoker Past Alcohol Use History: Abuse Past Drug Use History: Cocaine, Marijuana - Past Family History Father Additional Family Medical History / Comment(s): Father at age 73 from a motor vehicle accident. Mother Additional Family Medical History / Comment(s): Mom at age 56 from breast cancer with brain tumor and she also had mental health issues. Sister(s) Additional Family Medical History / Comment(s): Patient has 2 sisters with no major medical problems. Brother(s) Additional Family Medical History / Comment(s): Patient has 1 brother that was killed. Patient did not give details. Son(s) Additional Family Medical History / Comment(s): He has one son with no major medical problems. General Exam Limitations: no limitations General appearance: alert, in no apparent distress ENT exam: Present: normal exam, mucous membranes moist Neck exam: Present: normal inspection. Absent: tenderness, meningismus, lymphadenopathy Respiratory exam: Present: normal lung sounds bilaterally. Absent: respiratory distress, wheezes, rales, rhonchi, stridor Cardiovascular Exam: Present: regular rate, normal rhythm, normal heart sounds. Absent: systolic murmur, diastolic murmur, rubs, gallop, clicks Neurological exam: Present: alert, oriented X3 Psychiatric exam: Present: normal affect, normal mood Skin exam: Present: warm, dry, intact, normal color. Absent: rash Course Vital Signs 12/13/16 23:14 Temperature 97.3 F L Pulse Rate 79 Respiratory 18 Rate Blood Pressure 149/83 O2 Sat by Pulse 97 Oximetry Medical Decision Making - Medical Decision Making 56-year-old male presents with chief complaint of anxiety. Patient is however sleeping the room once examination is over. This time the patient does not appear to be suffering acute medical emergencies. This time the patient is cleared to be evaluated by psychiatry. This time patient was evaluated by psychiatry. Patient has been sleeping here in the emergency department the whole time with no sign of anxiety. This time he denies any suicidal or homicidal thoughts. This time the patient will be discharged. Patient is in agreement with plan. - Lab Data Lab Results 12/14/16 Range/Units 01:00 Urine Opiates Screen Not Detected (NotDetected) Ur Oxycodone Screen Not Detected (NotDetected) Urine Methadone Screen Not Detected (NotDetected) Ur Propoxyphene Screen Not Detected (NotDetected) Ur Barbiturates Screen Not Detected (NotDetected) U Tricyclic Antidepress Not Detected (NotDetected) Ur Phencyclidine Scrn Not Detected (NotDetected) Ur Amphetamines Screen Not Detected (NotDetected) U Methamphetamines Scrn Not Detected (NotDetected) U Benzodiazepines Scrn Not Detected (NotDetected) Urine Cocaine Screen Detected H (NotDetected) U Marijuana (THC) Screen Not Detected (NotDetected) Disposition Clinical Impression: Anxiety Disposition: HOME SELF-CARE Condition: Stable Instructions: Generalized Anxiety Disorder (ED) Additional Instructions: Please use medication as discussed. Please follow up with family doctor if symptoms have not improved over the next two days. Please return to the emergency room if your symptoms increase or worsen or for any other concerns. Referrals: Sixto Styles MD [STAFF PHYSICIAN] - 1-2 days Time of Disposition: 01:37
[2016-12-14 01:42] VITALS: BP 122/67; PULSE 77; TEMP 98
== END 2016-12-14 01:41 | disposition home or self-care (01) ==
LOC: EC 23:13
DX: F41.9 Anxiety disorder, unspecified (principal); F20.9 Schizophrenia, unspecified; F31.9 Bipolar disorder, unspecified; F17.200 Nicotine dependence, unspecified, uncomplicated; Z79.899 Other long term (current) drug therapy; Z91.010 Allergy to peanuts; Z91.013 Allergy to seafood; Z91.018 Allergy to other foods
CPT/HCPCS: 80306; 82075; 99284

== ENCOUNTER 2016-12-23 02:29 | Observation (INO) | payer OTHER ==
[2016-12-23] MEDS ORDERED: ASPIRIN 81 MG CHEW PO STA (03:10)
[2016-12-23] MEDS ORDERED: NITROGLYCERIN SL TABS 0.4 MG TAB SUBLINGUAL STA (03:10)
[2016-12-23 03:20] LABS: Basophils % (A) 1 %; CH 32.4; CHCM 33.9; Eosinophils # (A) 0.2 k/uL (0-0.7); Eosinophils % (A) 3 %; HCT 44.6 % (39.0-53.0); HDW 2.32; Luc # (Auto) 0.13; Luc % (Auto) 2; Lymphocytes # (A) 2.5 k/uL (1.0-4.8); Lymphocytes % (A) 41 %; MCH 32.3 pg (25.0-35.0); MCHC 33.6 g/dL (31.0-37.0); Mean Platelet Volume 7.8; Monocytes # (A) 0.4 k/uL (0-1.0); Monocytes % (A) 7 %; Neutrophils # (A) 2.8 k/uL (1.3-7.7); Neutrophils % (A) 47 %; RBC 4.64 m/uL (4.30-5.90); RDW 13.7 % (11.5-15.5); WBC (Perox) 5.68
[2016-12-23 03:22] LABS: MCV 96.1 fL (80.0-100.0)
[2016-12-23 03:41] LABS: ALT 32 U/L (21-72); AST 31 U/L (17-59); Alcohol 70 mg/dL; Alkaline Phosphatase 93 U/L (38-126); Anion Gap 11 mmol/L; Blood Urea Nitrogen 13 mg/dL (9-20); Calcium 9.3 mg/dL (8.4-10.2); Carbon Dioxide 24 mmol/L (22-30); Chloride 108 mmol/L (98-107); Glucose 105 mg/dL (74-99); Non-African American GFR(MDRD) >60 (>60 ml/min/1.73 sqM); Potassium 3.5 mmol/L (3.5-5.1); Sodium 143 mmol/L (137-145); Total Bilirubin 0.3 mg/dL (0.2-1.3); Total Protein 6.7 g/dL (6.3-8.2)
[2016-12-23 03:46] LABS: INR 1.1 (<1.1); Partial Thromboplastin Time 24.7 sec (22.0-30.0); Prothrombin Time 10.7 sec (9.0-12.0)
[2016-12-23 03:58] LABS: Creatine Kinase 605 U/L (55-170)
[2016-12-23 04:11] LABS: Troponin I <0.012 ng/mL (0.000-0.034)
--- NOTE | 2016-12-23 04:20 | XR ---
PROCEDURE: FILM CXR 1 VIEW HISTORY: 56-year-old male with chest pain. COMPARISON: None TECHNIQUE: Frontal view of the chest was obtained. FINDINGS: Limited by technique. Cardiomediastinal silhouette is within normal limits. Bibasilar atelectasis/consolidation. Bones are unremarkable for age. IMPRESSION: Bibasilar atelectasis/consolidation.
[2016-12-23 04:29] LABS: Creatine Kinase MB 4.1 ng/mL (0.0-2.4)
[2016-12-23] MEDS ORDERED: NITROGLYCERIN SL TABS 0.4 MG TAB SUBLINGUAL PRN (05:54)
[2016-12-23] MEDS ORDERED: LORazepam 2 MG/ML SYRINGE IV PRN ×2 (06:04)
[2016-12-23] MEDS ORDERED: LORazepam 2 MG/ML SYRINGE IV STA (06:04)
[2016-12-23] MEDS ORDERED: THIAMINE 100 MG/ML 2 ML VIAL IM STA (06:04)
[2016-12-23] MEDS ORDERED: fluPHENAZine DECANOATE 25 MG/ML 5ML MDV IM SCH (06:15)
[2016-12-23] MEDS ORDERED: cloNIDine HCL 0.2 MG TAB PO STA (06:59)
--- NOTE | 2016-12-23 07:33 | ED ---
Chest Pain HPI - General Chief Complaint: Chest Pain Stated Complaint: CHEST PAIN Time Seen by Provider: 12/23/16 02:48 Source: patient Mode of arrival: wheelchair Limitations: no limitations - History of Present Illness Initial Comments: This patient is a 56-year-old man who presents to be evaluated for aching and burning pain located in the substernal area that started yesterday in the early afternoon. Patient states that he had been doing some walking. He states the pain is constant, he has not discovered any worsening or relieving factors. He also had a little bit of nausea associated with this. The patient states that he has had a stress test but it was over a year ago now. MD Complaint: chest pain -: hour(s) Onset: during rest Pain Location: substernal Pain Radiation: none Severity: moderate Quality: aching Consistency: constant Improves With: nothing Worsens With: nothing Anginal Symptoms: nausea Treatments Prior to Arrival: none - Related Data Home Medications Medication Instructions Recorded Confirmed fluPHENAZine DECANOATE [Prolixin 25 mg IM Q7D 10/14/16 12/13/16 Decanoate] Previous Rx's Medication Instructions Recorded Benztropine Mesylate [Cogentin] 2 mg PO BID #14 11/28/16 Doxycycline [Vibramycin] 100 mg PO BID #12 cap 11/28/16 Mirtazapine [Remeron] 15 mg PO HS 30 Days 11/28/16 risperiDONE [RisperDAL] 1 mg PO HS #7 11/28/16 Allergies Allergy/AdvReac Type Severity Reaction Status Date / Time peanut [Peanut Butter] Allergy Unknown Verified 12/23/16 07:02 tomato Allergy Unknown Verified 12/23/16 07:02 seafood Allergy Unknown Uncoded 12/13/16 23:17 Review of Systems ROS Statement: Those systems with pertinent positive or pertinent negative responses have been documented in the HPI. ROS Other: All systems not noted in ROS Statement are negative. Constitutional: Denies: fever, chills Respiratory: Denies: cough, dyspnea, wheezes Cardiovascular: Reports: chest pain. Denies: palpitations, orthopnea, edema, syncope Gastrointestinal: Reports: nausea. Denies: abdominal pain, vomiting, diarrhea Genitourinary: Denies: dysuria, hematuria Musculoskeletal: Denies: back pain Skin: Denies: rash Neurological: Denies: headache, weakness, numbness Hematological/Lymphatic: Denies: easy bleeding EKG Findings - EKG Comments: EKG Findings:: Possible left atrial enlargement - EKG Results: EKG: interpreted by EHSAN, sinus rhythm (Rate 84 bpm), normal axis - Blocks, [place], Hypertrophy, ST Abn: AV and intraventricular conduction: right bundle branch block (fixed/ intermittent, complete/incomplete) (Incomplete) Past Medical History Past Medical History: No Reported History Additional Past Medical History / Comment(s): bipolar, depression, schizophrenia History of Any Multi-Drug Resistant Organisms: None Reported Past Surgical History: Hernia Repair Additional Past Surgical History / Comment(s): Right inguinal hernia repair Past Anesthesia/Blood Transfusion Reactions: No Reported Reaction Past Psychological History: Anxiety, Bipolar, Depression, Schizophrenia Smoking Status: Current every day smoker Past Alcohol Use History: Abuse Past Drug Use History: Cocaine, Marijuana - Past Family History Father Additional Family Medical History / Comment(s): Father at age 73 from a motor vehicle accident. Mother Additional Family Medical History / Comment(s): Mom at age 56 from breast cancer with brain tumor and she also had mental health issues. Sister(s) Additional Family Medical History / Comment(s): Patient has 2 sisters with no major medical problems. Brother(s) Additional Family Medical History / Comment(s): Patient has 1 brother that was killed. Patient did not give details. Son(s) Additional Family Medical History / Comment(s): He has one son with no major medical problems. General Exam Limitations: no limitations General appearance: alert, in no apparent distress Head exam: Present: atraumatic, normocephalic Eye exam: Present: normal appearance. Absent: scleral icterus, conjunctival injection ENT exam: Present: mucous membranes dry Neck exam: Present: normal inspection Respiratory exam: Present: normal lung sounds bilaterally. Absent: respiratory distress, wheezes, rales, rhonchi, stridor, chest wall tenderness Cardiovascular Exam: Present: regular rate, normal rhythm, normal heart sounds. Absent: systolic murmur, diastolic murmur, rubs, gallop GI/Abdominal exam: Present: soft. Absent: distended, tenderness, guarding, rebound, mass, pulsatile mass Extremities exam: Present: normal inspection, normal capillary refill. Absent: pedal edema, calf tenderness Back exam: Present: normal inspection. Absent: CVA tenderness (R), CVA tenderness (L) Neurological exam: Present: alert Skin exam: Present: warm, dry, intact, normal color. Absent: rash Course Vital Signs 12/23/16 12/23/16 12/23/16 02:39 03:42 04:05 Temperature 98.0 F Pulse Rate 88 80 78 Respiratory 18 18 18 Rate Blood Pressure 145/68 169/91 147/95 O2 Sat by Pulse 95 100 97 Oximetry 12/23/16 12/23/16 12/23/16 05:05 06:05 06:10 Temperature Pulse Rate 66 80 69 Respiratory 18 24 Rate Blood Pressure 147/82 193/96 163/102 O2 Sat by Pulse 98 97 Oximetry 12/23/16 12/23/16 12/23/16 06:22 06:25 06:50 Temperature Pulse Rate 76 69 Respiratory 18 Rate Blood Pressure 159/110 153/113 O2 Sat by Pulse 95 95 100 Oximetry Disposition Clinical Impression: Chest pain Disposition: ADMITTED IP TO THIS HOSP Condition: Fair
--- NOTE | 2016-12-23 08:43 | P.CRDCN ---
History of Present Illness Consult date: 12/23/16 Requesting physician: Db Swift Consult reason: chest pain Chief complaint: Chest pain History of present illness: This is a 56-year-old -[place] gentleman with past medical history significant for bipolar disorder, schizophrenia, GERD, prior history of cocaine use, history of significant EtOH use, nicotine dependence, most of the history was obtained from the medical record, it is very difficult to arouse the patient this morning. He does state that he presented to the hospital with symptoms of chest discomfort which lasted approximately 15 minutes in duration. Cor into the medical record, he did have some associated nausea, no shortness of breath or diaphoresis. Chest x-ray reveals bibasilar atelectasis or consolidation. EKG on arrival showed a normal sinus rhythm with an incomplete right bundle branch block pattern. Blood pressure on arrival 144/68 with a heart rate in the 80s, 95% on room air. He is afebrile. Let pressure early this morning 159/110, os recent blood pressure at 8:00 this morning 140/80. CBC is normal. D-dimer is negative. Potassium 3.5, BUN 13, creatinine 0.9. Magnesium level 2.0, total CK 605, MB 4.1, troponin 0.012. Remote alcohol level 70. The patient takes no home medications, he is currently on an aspirin , he was not initiated on IV heparin. 2 subsequent troponins have been ordered. Past Medical History Past Medical History: GERD/Reflux Additional Past Medical History / Comment(s): chronic back pain, migraines, constipation. History of Any Multi-Drug Resistant Organisms: None Reported Past Surgical History: Hernia Repair Additional Past Surgical History / Comment(s): Right inguinal hernia repair Past Anesthesia/Blood Transfusion Reactions: No Reported Reaction Smoking Status: Current every day smoker - Past Family History Father Additional Family Medical History / Comment(s): Father at age 73 from a motor vehicle accident. Mother Additional Family Medical History / Comment(s): Mom at age 56 from breast cancer with brain tumor and she also had mental health issues. Sister(s) Additional Family Medical History / Comment(s): Patient has 2 sisters with no major medical problems. Brother(s) Additional Family Medical History / Comment(s): Patient has 1 brother that was killed. Patient did not give details. Son(s) Additional Family Medical History / Comment(s): He has one son with no major medical problems. Medications and Allergies Home Medications Medication Instructions Recorded Confirmed Type No Known Home Medications [No 12/23/16 12/23/16 History Known Home Medications] Allergies Allergy/AdvReac Type Severity Reaction Status Date / Time peanut [Peanut Butter] Allergy Unknown Verified 12/23/16 07:02 tomato Allergy Unknown Verified 12/23/16 07:02 seafood Allergy Unknown Uncoded 12/13/16 23:17 Physical Exam Vitals: Vital Signs Temp Pulse Pulse Resp BP BP Pulse Ox 12/23/16 08:00 97.9 F 64 16 140/88 96 12/23/16 07:34 98 F 64 18 167/109 100 12/23/16 06:50 69 153/113 100 12/23/16 06:25 76 18 159/110 95 12/23/16 06:22 95 12/23/16 06:10 69 24 163/102 97 12/23/16 06:05 80 193/96 12/23/16 05:05 66 18 147/82 98 12/23/16 04:05 78 18 147/95 97 12/23/16 03:42 80 18 169/91 100 12/23/16 02:39 98.0 F 88 18 145/68 95 Intake and Output 12/22/16 12/23/16 12/23/16 22:59 06:59 14:59 Other: Weight 81.647 kg 78 kg Patient Weight 12/24/16 06:59 Weight 78 kg PHYSICAL EXAMINATION: HEENT: Head is atraumatic, normocephalic. Pupils equal, round. Neck is supple. There is no elevated jugular venous pressure. HEART EXAMINATION: Heart S1, S2 normal. No murmur or gallop heard. CHEST EXAMINATION: Lungs reveal scattered coarse rhonchi that clear with cough. ABDOMEN: Soft, nontender. Bowel sounds are heard. No organomegaly noted. EXTREMITIES: 2+ peripheral pulses with no evidence of peripheral edema and no calf tenderness noted. NEUROLOGIC [patient is very sleepy, difficult to arouse. Results 12/23/16 02:50 12/23/16 02:50 Cardiac Enzymes 12/23/16 12/23/16 Range/Units 02:50 02:50 AST 31 (17-59) U/L CK-MB (CK-2) 4.1 H* (0.0-2.4) ng/mL Troponin I <0.012 (0.000-0.034) ng/mL Coagulation 12/23/16 Range/Units 02:50 PT 10.7 (9.0-12.0) sec APTT 24.7 (22.0-30.0) sec CBC 12/23/16 Range/Units 02:50 WBC 6.0 (3.8-10.6) k/uL RBC 4.64 (4.30-5.90) m/uL Hgb 15.0 (13.0-17.5) gm/dL Hct 44.6 (39.0-53.0) % Plt Count 308 (150-450) k/uL Comprehensive Metabolic Panel 12/23/16 Range/Units 02:50 Sodium 143 (137-145) mmol/L Potassium 3.5 (3.5-5.1) mmol/L Chloride 108 H (98-107) mmol/L Carbon Dioxide 24 (22-30) mmol/L BUN 13 (9-20) mg/dL Creatinine 0.90 (0.66-1.25) mg/dL Glucose 105 H (74-99) mg/dL Calcium 9.3 (8.4-10.2) mg/dL AST 31 (17-59) U/L ALT 32 (21-72) U/L Alkaline Phosphatase 93 (38-126) U/L Total Protein 6.7 (6.3-8.2) g/dL Albumin 3.9 (3.5-5.0) g/dL Current Medications Generic Name Dose Route Start Last Admin Trade Name Freq PRN Reason Stop Dose Admin Aspirin 325 mg 12/24/16 09:00 Aspirin PO DAILY CINTHIA Benztropine Mesylate 2 mg 12/23/16 09:00 Cogentin PO BID CINTHIA Doxycycline Monohydrate 100 mg 12/23/16 09:00 Vibramycin PO BID [facility] Fluphenazine Decanoate 25 mg 12/23/16 06:15 Prolixin Decanoate IM Q7D CINTHIA Lorazepam 1 mg 12/23/16 06:04 Ativan IV Q2HR PRN CIWA 8 or 9 Lorazepam 1 mg 12/23/16 06:04 Ativan IV Q1HR PRN CIWA 10 to 15 Lorazepam 2 mg 12/23/16 06:04 Ativan IV Q1HR PRN CIWA 16 or higher Mirtazapine 15 mg 12/23/16 21:00 Remeron PO HS CINTHIA Nitroglycerin 0.4 mg 12/23/16 05:54 Nitrostat SUBLINGUAL Q5M PRN Chest Pain Risperidone 1 mg 12/23/16 21:00 Risperdal PO HS CINTHIA Thiamine HCl 100 mg 12/23/16 17:00 Vitamin B-1 PO BID@1200,1700 CINTHIA Intake and Output 12/22/16 12/23/16 12/23/16 22:59 06:59 14:59 Other: Weight 81.647 kg 78 kg Patient Weight 12/24/16 06:59 Weight 78 kg 12/23/16 02:50 12/23/16 02:50 EKG Interpretations (text) EKG shows normal sinus rhythm with an incomplete right bundle branch block pattern. Assessment and Plan Plan: Assessment and plan #1 chest pain, atypical for acute coronary syndrome. Initial troponin negative. EKG shows normal sinus rhythm with an incomplete right bundle branch block pattern. #2 nicotine dependence #3 history of a bipolar, schizophrenia, depression and anxiety #4 GERD #5 EtOH abuse, alcohol level on admission 70 Plan We will repeat the EKG this morning. Obtain echocardiogram with Doppler study. We will also obtain 2 subsequent troponins. Further recommendations will be based on these findings and the patient's clinical course. DNP note has been reviewed, I agree with a documented findings and plan of care. Patient was seen and examined.
[2016-12-23 09:24] LABS: Creatine Kinase 477 U/L (55-170)
[2016-12-23 09:38] LABS: Troponin I <0.012 ng/mL (0.000-0.034)
[2016-12-23 09:45] LABS: Creatine Kinase MB 3.7 ng/mL (0.0-2.4)
[2016-12-23] MEDS ORDERED: DOBUTamine DRIP for NUC MED 500 MG in DEXTROSE/WATER 1 250ML.BAG IV ONE (10:14)
[2016-12-23] MEDS ORDERED: ATROPINE SULFATE 0.4 MG/ML 1 ML VIAL ONE (11:25)
[2016-12-23] MEDS: BENZTROPINE MESYLATE 1 MG TAB PO SCH ×2 (11:53→19:40)
[2016-12-23] MEDS: DOXYCYCLINE 50 MG CAP PO SCH ×2 (11:54→19:40)
--- NOTE | 2016-12-23 12:23 | P.STRESS ---
- Stress Test Note Stress Test Results/Findings: Exam Performed: dobutamine stress echo Exam Date: 12/23/16 Height: 5 ft 7 in Weight: 78 kg Protocol: dobutamine Stage: 3 Duration of Exercise: 9:00 Resting Heart Rate: 61 Resting Blood Pressure: 110/76 Maximum Achieved Heart Rate: 152 Maximum Achieved Blood Pressure: 182/52 85% PMHR: 140 100% PMHR: 165 METS: n/a Technologist Comment: Stress Test Results/Findings: The test is requested to evaluate symptoms of chest pain and shortness of breath. This is a dobutamine stress test. He patient EKG showed sinus rhythm with normal MA and QRS duration. A standard dose of dobutamine was initiated and titrated to 30 mics. Patient heart rate did not improve. Patient was given IV atropine 1 mg. Subsequent lipase to chew to maximum to 152 with blood pressure 180/52. EKG taken during and after the as tested did not reveal any changes to sized ischemia. Echo data: Baseline echo images show normal wall motion and thickening with left ventricle hypertrophy. X-rays echo images showed augmentation of wall motion and thickening in all segments both at low dose and also high-dose dobutamine. Patient did not express any chest pain. Final impression: #1. Negative dobutamine stress test #2. Negative dobutamine stress echo.
--- NOTE | 2016-12-23 12:41 | ECHOF ---
Referral Reason:chest pain MEASUREMENTS -------- HEIGHT: 170.2 cm WEIGHT: 77.6 kg BP: 140/88 RVIDd: 2.7 cm (< 3.3) IVSd: 1.4 cm (0.6 - 1.1) LVIDd: 4.5 cm (3.9 - 5.3) LVPWd: 1.4 cm (0.6 - 1.1) IVSs: 2.0 cm LVIDs: 2.6 cm LVPWs: 1.8 cm LAESV Index (A-L): 13.39 ml/m Ao Diam: 3.3 cm (2.0 - 3.7) AV Cusp: 1.9 cm (1.5 - 2.6) LA Diam: 2.6 cm (2.7 - 3.8) MV EXCURSION: 13.666 mm (> 18.000) MV EF SLOPE: 89 mm/s (70 - 150) EPSS: 0.5 cm MV E Jorge: 0.49 m/s MV DecT: 270 ms MV A Jorge: 0.48 m/s MV E/A Ratio: 1.02 FINDINGS -------- Sinus rhythm. This was a technically adequate study. There is moderate concentric left ventricular hypertrophy. Overall left ventricular systolic function is normal with, an EF between 60 - 65 %. The right ventricle is normal in size and function. The global wall thickness of the right ventricle is mildly enlarged. Normal LA size by volume 22+/-6 ml/m2. The right atrium is normal in size. The aortic valve is trileaflet, and appears structurally normal. No aortic stenosis or regurgitation. The mitral valve leaflets are mildly thickened. There is trace mitral regurgitation. Trace tricuspid regurgitation present. There is no evidence of pulmonary hypertension. The right ventricular systolic pressure, as measured by Doppler, is {RVSP}. Pulmonic valve appears structurally normal. The aortic root size is normal. Normal inferior vena cava with normal inspiratory collapse consistent with estimated right atrial pressure of 5 mmHg. The pericardium is normal. There is no pericardial effusion. CONCLUSIONS -------- 1. Sinus rhythm. 2. Trace tricuspid regurgitation present. 3. There is no evidence of pulmonary hypertension. 4. The right ventricular systolic pressure, as measured by Doppler, is {RVSP}. 5. The aortic root size is normal. 6. There is no pericardial effusion. 7. This was a technically adequate study. 8. There is moderate concentric left ventricular hypertrophy. 9. Overall left ventricular systolic function is normal with, an EF between 60 - 65 %. 10. The global wall thickness of the right ventricle is mildly enlarged. 11. Normal LA size by volume 22+/-6 ml/m2. 12. The aortic valve is trileaflet, and appears structurally normal. No aortic stenosis or regurgitation. 13. The mitral valve leaflets are mildly thickened. 14. There is trace mitral regurgitation. ENGAGEMENT EXECUTIVE: Tom Yeboah RDCS
--- NOTE | 2016-12-23 14:27 | P.HPIM ---
History of Present Illness This is a 56-year-old -[place] gentleman GERD, prior history of cocaine use, history of significant EtOH use, nicotine dependence, brings a pint of hard liquor every day came in with concerns of epigastric burning sensation. Along with nausea. He has been lethargic as he received Ativan for alcohol withdrawal score of 10. Patient says he drinks only alcohol 3-4 times a week. Patient chest resolved at this point up and lasted for a few hours denied any diaphoresis denied any fever, chest pain is nonpleuritic in nature. most of the history was obtained from the medical record, it is very difficult to arouse the patient this morning. He does state that he presented to the hospital with symptoms of chest discomfort which lasted approximately 15 minutes in duration. EKG on arrival showed a normal sinus rhythm with an incomplete right bundle branch block pattern. Blood pressure on arrival 144/68 with a heart rate in the 80s, 95% on room air. He is afebrile. Review of Systems REVIEW OF SYSTEMS: CONSTITUTIONAL: No fever, no malaise, no fatigue. HEENT: No recent visual problems or hearing problems. Denied any sore throat. CARDIOVASCULAR: No chest pain, orthopnea, PND, no palpitations, no syncope. PULMONARY: No shortness of breath, no cough, no hemoptysis. GASTROINTESTINAL: No diarrhea, no nausea, no vomiting, epigastric abdominal burning sensation as mentioned above. Normoactive bowel sounds. NEUROLOGICAL: No headaches, no weakness, no numbness. HEMATOLOGICAL: Denies any bleeding or petechiae. GENITOURINARY: Denies any burning micturition, frequency, or urgency. MUSCULOSKELETAL/RHEUMATOLOGICAL: Denies any joint pain, swelling, or any muscle pain. ENDOCRINE: Denies any polyuria or polydipsia. The rest of the 14-point review of systems is negative. Past Medical History Past Medical History: GERD/Reflux Additional Past Medical History / Comment(s): chronic back pain, migraines, constipation. History of Any Multi-Drug Resistant Organisms: None Reported Past Surgical History: Hernia Repair Additional Past Surgical History / Comment(s): Right inguinal hernia repair Past Anesthesia/Blood Transfusion Reactions: No Reported Reaction Smoking Status: Current every day smoker - Past Family History Father Additional Family Medical History / Comment(s): Father at age 73 from a motor vehicle accident. Mother Additional Family Medical History / Comment(s): Mom at age 56 from breast cancer with brain tumor and she also had mental health issues. Sister(s) Additional Family Medical History / Comment(s): Patient has 2 sisters with no major medical problems. Brother(s) Additional Family Medical History / Comment(s): Patient has 1 brother that was killed. Patient did not give details. Son(s) Additional Family Medical History / Comment(s): He has one son with no major medical problems. Medications and Allergies Home Medications Medication Instructions Recorded Confirmed Type No Known Home Medications [No 12/23/16 12/23/16 History Known Home Medications] Allergies Allergy/AdvReac Type Severity Reaction Status Date / Time peanut [Peanut Butter] Allergy Unknown Verified 12/23/16 07:02 tomato Allergy Unknown Verified 12/23/16 07:02 seafood Allergy Unknown Uncoded 12/13/16 23:17 Physical Exam Vitals: Vital Signs Temp Pulse Pulse Resp BP BP Pulse Ox 12/23/16 12:00 97.7 F 63 16 143/90 12/23/16 08:00 97.9 F 64 16 140/88 96 12/23/16 07:34 98 F 64 18 167/109 100 12/23/16 06:50 69 153/113 100 12/23/16 06:25 76 18 159/110 95 12/23/16 06:22 95 12/23/16 06:10 69 24 163/102 97 12/23/16 06:05 80 193/96 12/23/16 05:05 66 18 147/82 98 12/23/16 04:05 78 18 147/95 97 12/23/16 03:42 80 18 169/91 100 12/23/16 02:39 98.0 F 88 18 145/68 95 Intake and Output 12/22/16 12/23/16 12/23/16 22:59 06:59 14:59 Other: Voiding Method Urinal Weight 81.647 kg 78 kg Patient Weight 12/24/16 06:59 Weight 78 kg Results CBC & Chem 7: 12/23/16 02:50 12/23/16 02:50 Labs: Abnormal Lab Results - Last 24 Hours (Table) 12/23/16 12/23/16 12/23/16 Range/Units 02:50 02:50 08:46 Chloride 108 H (98-107) mmol/L Glucose 105 H (74-99) mg/dL Total Creatine Kinase 605 H 477 H (55-170) U/L CK-MB (CK-2) 4.1 H* 3.7 H* (0.0-2.4) ng/mL Thrombosis Risk Factor Assmnt - Choose All That Apply Any of the Below Risk Factors Present?: Yes Each Factor Represents 1 point: Age 41-60 years, Obesity (BMI >25) Other Risk Factors: No Other congenital or acquired thrombophilia - If yes, enter type in comment: No Thrombosis Risk Factor Assessment Total Risk Factor Score: 2 Thrombosis Risk Factor Assessment Level: Low Risk Assessment and Plan Plan: Chest pain/abdominal pain: Secondary to chronic gastritis. Patient underwent stress test and rule out acute coronary syndromes. Patient will be started on Protonix. Alcohol abuse: Counseling was provided. Need to watch patient tonight for alcohol withdrawal symptoms. Patient can be discharged tomorrow if he doesn't have any significant withdrawal tomorrow morning. Thiamine multivitamin supplementation. Nicotine abuse: Counseled was provided Cocaine abuse history. Chronic low back pain
[2016-12-23] MEDS: PANTOPRAZOLE 40 MG/10 ML VIAL IVP SCH (14:29)
--- NOTE | 2016-12-23 14:31 | P.DS ---
Providers Date of admission: 12/23/16 05:54 Attending physician: Db Swift Consults: 12/23/16 05:54 Consult Physician Routine Consulting Provider: Belkis Ponce Consult Reason/Comments: chest pain Do you want consulting provider notified?: Yes Primary care physician: Stated None Hospital Course: Patient developed chest pain which is probably muscular skeletal in nature and patient underwent coronary catheterization which did not show any occlusive atherosclerotic vascular disease. Patient was discharged today. #1 chest pain: Rule out a concurrent syndromes, stable angina, cardiology is recommending cardiac catheterization. Patient will undergo cardiac catheterization tomorrow patient mostly has [place] skeletal pain probably coming from the back. #2 hypertension #3 history of smoking. Patient Condition at Discharge: Fair Plan - Discharge Summary New Discharge Prescriptions: No Action No Known Home Medications [No Known Home Medications] Discharge Medication List No Known Home Medications [No Known Home Medications] 12/23/16 [History] Follow up Appointment(s)/Referral(s): None,Stated [Primary Care Provider] - 1 Week Discharge Disposition: HOME SELF-CARE
[2016-12-23] MEDS: LORazepam 2 MG/ML SYRINGE IV PRN (14:47)
[2016-12-23 15:53] LABS: Creatine Kinase MB 2.6 ng/mL (0.0-2.4); Troponin I 0.036 ng/mL (0.000-0.034)
--- NOTE | 2016-12-23 15:57 | ECHOS ---
Stress Test Results/Findings: Exam Performed: dobutamine stress echo Exam Date: 12/23/16 Height: 5 ft 7 in Weight: 78 kg Protocol: dobutamine Stage: 3 Duration of Exercise: 9:00 Resting Heart Rate: 61 Resting Blood Pressure: 110/76 Maximum Achieved Heart Rate: 152 Maximum Achieved Blood Pressure: 182/52 85% PMHR: 140 100% PMHR: 165 METS: n/a Technologist Comment: Stress Test Results/Findings: The test is requested to evaluate symptoms of chest pain and shortness of breath. This is a dobutamine stress test. He patient EKG showed sinus rhythm with normal [place] and QRS duration. A standard dose of dobutamine was initiated and titrated to 30 mics. Patient heart rate did not improve. Patient was given IV atropine 1 mg. Subsequent lipase to chew to maximum to 152 with blood pressure 180/52. EKG taken during and after the as tested did not reveal any changes to sized ischemia. Echo data: Baseline echo images show normal wall motion and thickening with left ventricle hypertrophy. X-rays echo images showed augmentation of wall motion and thickening in all segments both at low dose and also high-dose dobutamine. Patient did not express any chest pain. Final impression: #1. Negative dobutamine stress test #2. Negative dobutamine stress echo. [facility]
[2016-12-23] MEDS ORDERED: PANTOPRAZOLE 40 MG TABLET PO SCH (17:30)
[2016-12-23] MEDS: THIAMINE 100 MG TAB PO SCH (17:42)
[2016-12-23] MEDS ORDERED: MIRTAZAPINE 15 MG TAB PO SCH (21:00)
[2016-12-23] MEDS ORDERED: risperiDONE 1 MG TAB PO SCH (21:00)
[2016-12-23] MEDS: NICOTINE 14MG/24HR PATCH TRANSDERM SCH (21:32)
[2016-12-24 05:21] LABS: Cholesterol 156 mg/dL (<200); HDL Cholesterol 68 mg/dL (40-60); Triglycerides 90 mg/dL (<150)
[2016-12-24 07:55] VITALS: RESP 18
[2016-12-24] MEDS: DOXYCYCLINE 50 MG CAP PO SCH (08:03)
[2016-12-24] MEDS: NICOTINE 14MG/24HR PATCH TRANSDERM SCH (08:03)
[2016-12-24] MEDS: BENZTROPINE MESYLATE 1 MG TAB PO SCH (08:03)
[2016-12-24] MEDS: PANTOPRAZOLE 40 MG/10 ML VIAL IVP SCH (08:03)
[2016-12-24] MEDS: LORazepam 2 MG/ML SYRINGE IV PRN ×2 (08:17→11:35)
[2016-12-24] MEDS ORDERED: ASPIRIN 325 MG TAB PO SCH (09:00)
[2016-12-24] MEDS: THIAMINE 100 MG TAB PO SCH (11:29)
[2016-12-24 12:20] VITALS: BP 131/86; PULSE 75; TEMP 97.4
--- NOTE | 2016-12-24 14:26 | P.DS ---
Providers Date of admission: 12/23/16 05:54 Attending physician: Db Swift Consults: 12/23/16 05:54 Consult Physician Routine Consulting Provider: Belkis Ponce Consult Reason/Comments: chest pain Do you want consulting provider notified?: Yes Primary care physician: Stated None Hospital Course: Patient came in with epigastric abdominal pain secondary to gastritis, patient underwent stress test which was negative and patient will be discharged today patient was having minimal alcohol withdrawals. Patient is willing to quit alcohol and patient was discharged on Protonix and Ativan as needed for oncology draws and patient will be deferred to PCP. Patient was counseled regarding alcohol abuse. Patient Condition at Discharge: Fair Plan - Discharge Summary New Discharge Prescriptions: New LORazepam [Ativan] 1 mg PO TID PRN #20 tab PRN Reason: Alcohol Withdrawal Omeprazole [PriLOSEC] 40 mg PO AC-BRKFST #14 capsule. Thiamine [Vitamin B-1] 100 mg PO DAILY #30 tablet Discharge Medication List LORazepam [Ativan] 1 mg PO TID PRN #20 tab 12/24/16 [Rx] Omeprazole [PriLOSEC] 40 mg PO AC-BRKFST #14 capsule. 12/24/16 [Rx] Thiamine [Vitamin B-1] 100 mg PO DAILY #30 tablet 12/24/16 [Rx] Follow up Appointment(s)/Referral(s): Renetta Jaeger MD [REFERRING] - 1 Week None,Stated [Primary Care Provider] - 1 Week Discharge Disposition: HOME SELF-CARE
== END 2016-12-24 14:25 | disposition home or self-care (01) ==
LOC: EC 02:29 → 3OBS 05:54
PROVIDERS: ADMIT Hospitalist; ATTEND Hospitalist
DX: K29.50 Unspecified chronic gastritis without bleeding (principal); F10.239 Alcohol dependence with withdrawal, unspecified; F17.200 Nicotine dependence, unspecified, uncomplicated; M54.5 Low back pain; G89.29 Other chronic pain; F14.21 Cocaine dependence, in remission; F20.9 Schizophrenia, unspecified; K21.9 Gastro-esophageal reflux disease without esophagitis; Z91.010 Allergy to peanuts; Z91.013 Allergy to seafood; Z91.018 Allergy to other foods; Z80.3 Family history of malignant neoplasm of breast; F32.9 Major depressive disorder, single episode, unspecified; F41.9 Anxiety disorder, unspecified
CPT/HCPCS: 99285; 96374; 96372; 96376 ×2; 96375; 36415; 93005; 93017; 93306; 85379; 80061; 80053; 82550; 82553; 83735; 84484; 85025; 85610; 85730; 80320; 71010; G0378 ×2; C8928; S4990 ×2; J2060 ×2; J1250; J0461; J3411; Q9957; C9113 ×2; 93350

== ENCOUNTER 2017-03-04 14:22 | Emergency (ER) | payer OTHER ==
--- NOTE | 2017-03-04 14:38 | ED ---
General Adult HPI - General Chief complaint: Seizure Stated complaint: Seizure Time Seen by Provider: 03/04/17 14:31 Source: police, EMS, RN notes reviewed, old records reviewed Mode of arrival: EMS Limitations: altered mental status - History of Present Illness Initial comments: This is a 57-year-old male the ER for evaluation. Patient brought in by PD for evaluation for [facility] clearance for incarceration. Patient is having seizure-like activity at this time and is therefore a poor strain. - Related Data Previous Rx's Medication Instructions Recorded LORazepam [Ativan] 1 mg PO TID PRN #20 tab 12/24/16 Omeprazole [PriLOSEC] 40 mg PO AC-BRKFST #14 capsule. 12/24/16 Thiamine [Vitamin B-1] 100 mg PO DAILY #30 tablet 12/24/16 Allergies Allergy/AdvReac Type Severity Reaction Status Date / Time peanut [Peanut Butter] Allergy Unknown Verified 12/23/16 07:02 tomato Allergy Unknown Verified 12/23/16 07:02 seafood Allergy Unknown Uncoded 12/13/16 23:17 Review of Systems ROS Statement: Those systems with pertinent positive or pertinent negative responses have been documented in the HPI. ROS Other: All systems not noted in ROS Statement are negative. Past Medical History Past Medical History: GERD/Reflux Additional Past Medical History / Comment(s): chronic back pain, migraines, constipation. History of Any Multi-Drug Resistant Organisms: None Reported Past Surgical History: Hernia Repair Additional Past Surgical History / Comment(s): Right inguinal hernia repair Past Anesthesia/Blood Transfusion Reactions: No Reported Reaction Past Psychological History: Anxiety, Bipolar, Depression, Schizophrenia Smoking Status: Current every day smoker - Past Family History Father Additional Family Medical History / Comment(s): Father at age 73 from a motor vehicle accident. Mother Additional Family Medical History / Comment(s): Mom at age 56 from breast cancer with brain tumor and she also had mental health issues. Sister(s) Additional Family Medical History / Comment(s): Patient has 2 sisters with no major medical problems. Brother(s) Additional Family Medical History / Comment(s): Patient has 1 brother that was killed. Patient did not give details. Son(s) Additional Family Medical History / Comment(s): He has one son with no major medical problems. General Exam Limitations: altered mental status General appearance: alert, in no apparent distress Head exam: Present: atraumatic, normocephalic, normal inspection Eye exam: Present: normal appearance, PERRL, EOMI. Absent: scleral icterus, conjunctival injection, periorbital swelling ENT exam: Present: normal exam, mucous membranes moist Neck exam: Present: normal inspection. Absent: tenderness, meningismus, lymphadenopathy Respiratory exam: Present: normal lung sounds bilaterally. Absent: respiratory distress, wheezes, rales, rhonchi, stridor Cardiovascular Exam: Present: regular rate, normal rhythm, normal heart sounds. Absent: systolic murmur, diastolic murmur, rubs, gallop, clicks GI/Abdominal exam: Present: soft, normal bowel sounds. Absent: distended, tenderness, guarding, rebound, rigid Extremities exam: Present: normal inspection, full ROM, normal capillary refill. Absent: tenderness, pedal edema, joint swelling, calf tenderness Back exam: Present: normal inspection Neurological exam: Present: alert, oriented X3, CN II-XII intact Psychiatric exam: Present: normal affect, normal mood Skin exam: Present: warm, dry, intact, normal color. Absent: rash Course Vital Signs 03/04/17 03/04/17 14:30 15:08 Temperature 97.1 F L Pulse Rate 67 63 Respiratory 18 20 Rate Blood Pressure 158/93 173/92 O2 Sat by Pulse 97 96 Oximetry - Reevaluation(s) Reevaluation #1: 03/04/17 15:42 Patient does respond to sternal rub, supraorbital pressure Reevaluation #2: 03/04/17 15:42 Patient's medical record from ER visits are reviewed including [facility] where he was just 2 days ago a similar symptoms. Secondary to incarceration. Patient is responsive Medical Decision Making - Medical Decision Making 57 [facility] ER for evaluation. Patient coming in for seizure versus pseudoseizure and way to [facility] incarceration. Patient has multiple warrants for arrest, per patient's records he did same routine at [facility] 2 days ago and then eloped from the hospital when he was not being watched. Otherwise patient has no complaints, normal labs. - Lab Data Result diagrams: 03/04/17 14:30 Lab Results 03/04/17 03/04/17 Range/Units 14:30 14:30 WBC 5.1 (3.8-10.6) k/uL RBC 4.91 (4.30-5.90) m/uL Hgb 16.0 (13.0-17.5) gm/dL Hct 48.6 (39.0-53.0) % MCV 99.0 (80.0-100.0) fL MCH 32.6 (25.0-35.0) pg MCHC 32.9 (31.0-37.0) g/dL RDW 15.2 (11.5-15.5) % Plt Count 379 (150-450) k/uL Neutrophils % 53 % Lymphocytes % 33 % Monocytes % 8 % Eosinophils % 3 % Basophils % 1 % Neutrophils # 2.7 (1.3-7.7) k/uL Lymphocytes # 1.7 (1.0-4.8) k/uL Monocytes # 0.4 (0-1.0) k/uL Eosinophils # 0.2 (0-0.7) k/uL Basophils # 0.0 (0-0.2) k/uL PT 10.8 (9.0-12.0) sec INR 1.1 (<1.2) APTT 23.2 (22.0-30.0) sec Disposition Clinical Impression: Febrile convulsion, Medical clearance for incarceration Disposition: HOME SELF-CARE Condition: Good Referrals: None,Stated [Primary Care Provider] - 1-2 days
[2017-03-04] MEDS ORDERED: SODIUM CHLORIDE 0.9% 1,000 ML IV STA (14:42)
[2017-03-04] MEDS ORDERED: ONDANSETRON 4 MG/2 ML VIAL IVP STA (14:42)
[2017-03-04] MEDS ORDERED: LORazepam 2 MG/ML SYRINGE IV STA (14:43)
[2017-03-04 15:09] VITALS: RESP 20
[2017-03-04 15:12] LABS: CHCM 34.1; HCT 48.6 % (39.0-53.0); MCH 32.6 pg (25.0-35.0); MCHC 32.9 g/dL (31.0-37.0); RBC 4.91 m/uL (4.30-5.90); WBC 5.1 k/uL (3.8-10.6); WBC (Perox) 4.99
[2017-03-04 15:13] LABS: Basophils % (A) 1 %; CH 33.5; Eosinophils % (A) 3 %; HDW 2.44; Luc % (Auto) 3; Lymphocytes % (A) 33 %; Mean Platelet Volume 8.2; Monocytes % (A) 8 %; Neutrophils % (A) 53 %; RDW 15.2 % (11.5-15.5)
[2017-03-04 15:14] LABS: Eosinophils # (A) 0.2 k/uL (0-0.7); Luc # (Auto) 0.13; Lymphocytes # (A) 1.7 k/uL (1.0-4.8); Monocytes # (A) 0.4 k/uL (0-1.0); Neutrophils # (A) 2.7 k/uL (1.3-7.7)
[2017-03-04 15:24] LABS: INR 1.1 (<1.2); Partial Thromboplastin Time 23.2 sec (22.0-30.0); Prothrombin Time 10.8 sec (9.0-12.0)
[2017-03-04 15:37] LABS: Anion Gap 10 mmol/L; Blood Urea Nitrogen 12 mg/dL (9-20); Calcium 9.6 mg/dL (8.4-10.2); Carbon Dioxide 24 mmol/L (22-30); Chloride 107 mmol/L (98-107); Glucose 100 mg/dL (74-99); Non-African American GFR(MDRD) >60 (>60 ml/min/1.73 sqM); Phosphorous 4.5 mg/dL (2.5-4.5); Potassium 4.1 mmol/L (3.5-5.1); Sodium 141 mmol/L (137-145); Total Protein 7.1 g/dL (6.3-8.2)
[2017-03-04 15:38] LABS: ALT 26 U/L (21-72); AST 19 U/L (17-59); Alkaline Phosphatase 111 U/L (38-126); Total Bilirubin 0.7 mg/dL (0.2-1.3)
[2017-03-04 15:44] LABS: Creatine Kinase MB 1.3 ng/mL (0.0-2.4); Troponin I 0.015 ng/mL (0.000-0.034)
[2017-03-04 16:03] VITALS: BP 178/89; PULSE 84; TEMP 98.2
== END 2017-03-04 16:03 | disposition home or self-care (01) ==
LOC: EC 14:22
DX: R56.00 Simple febrile convulsions (principal); F17.200 Nicotine dependence, unspecified, uncomplicated; Z91.010 Allergy to peanuts; Z91.013 Allergy to seafood; Z91.018 Allergy to other foods
CPT/HCPCS: 36415; 80053; 82550; 82553; 83735; 84100; 84484; 85025; 85610; 85730; 99285; 96374; 96375; 96361; J2060; J2405

== ENCOUNTER 2017-09-08 11:39 | Inpatient (IN) | payer MEDICAID, OTHER ==
--- NOTE | 2017-09-08 12:09 | ED ---
General Adult HPI - General Chief complaint: Psychiatric Symptoms Stated complaint: Mental health Time Seen by Provider: 09/08/17 12:08 Source: patient, RN notes reviewed, old records reviewed Mode of arrival: ambulatory Limitations: no limitations - History of Present Illness Initial comments: This is a 57-year-old male the ER for evaluation. Patient has history of psychiatric illness. Patient states that he feels that he wants to kill himself or kill someone else to sulfa be by cutting his wrists. Denies recent drug abuse - Related Data Home Medications Medication Instructions Recorded Confirmed Unable To Assess [Unable to Assess] 09/08/17 09/08/17 Allergies Allergy/AdvReac Type Severity Reaction Status Date / Time peanut [Peanut Butter] Allergy Unknown Verified 09/08/17 12:16 tomato Allergy Unknown Verified 09/08/17 12:16 seafood Allergy Unknown Uncoded 12/13/16 23:17 Review of Systems ROS Statement: Those systems with pertinent positive or pertinent negative responses have been documented in the HPI. ROS Other: All systems not noted in ROS Statement are negative. Past Medical History Past Medical History: GERD/Reflux Additional Past Medical History / Comment(s): chronic back pain, migraines, constipation. History of Any Multi-Drug Resistant Organisms: None Reported Past Surgical History: Hernia Repair Additional Past Surgical History / Comment(s): Right inguinal hernia repair Past Anesthesia/Blood Transfusion Reactions: No Reported Reaction Past Psychological History: Anxiety, Bipolar, Depression, Schizophrenia Smoking Status: Current every day smoker Past Alcohol Use History: None Reported Past Drug Use History: Cocaine, Marijuana - Past Family History Father Additional Family Medical History / Comment(s): Father at age 73 from a motor vehicle accident. Mother Additional Family Medical History / Comment(s): Mom at age 56 from breast cancer with brain tumor and she also had mental health issues. Sister(s) Additional Family Medical History / Comment(s): Patient has 2 sisters with no major medical problems. Brother(s) Additional Family Medical History / Comment(s): Patient has 1 brother that was killed. Patient did not give details. Son(s) Additional Family Medical History / Comment(s): He has one son with no major medical problems. General Exam Limitations: no limitations General appearance: alert, in no apparent distress Head exam: Present: atraumatic, normocephalic, normal inspection Eye exam: Present: normal appearance, PERRL, EOMI. Absent: scleral icterus, conjunctival injection, periorbital swelling ENT exam: Present: normal exam, mucous membranes moist Neck exam: Present: normal inspection. Absent: tenderness, meningismus, lymphadenopathy Respiratory exam: Present: normal lung sounds bilaterally. Absent: respiratory distress, wheezes, rales, rhonchi, stridor Cardiovascular Exam: Present: regular rate, normal rhythm, normal heart sounds. Absent: systolic murmur, diastolic murmur, rubs, gallop, clicks GI/Abdominal exam: Present: soft, normal bowel sounds. Absent: distended, tenderness, guarding, rebound, rigid Extremities exam: Present: normal inspection, full ROM, normal capillary refill. Absent: tenderness, pedal edema, joint swelling, calf tenderness Back exam: Present: normal inspection Neurological exam: Present: alert, oriented X3, CN II-XII intact Psychiatric exam: Present: normal affect, normal mood Skin exam: Present: warm, dry, intact, normal color. Absent: rash Course Vital Signs 09/08/17 11:57 Temperature 98.6 F Pulse Rate 61 Respiratory 18 Rate Blood Pressure 142/92 O2 Sat by Pulse 99 Oximetry - Reevaluation(s) Reevaluation #1: 09/08/17 12:08 Patient's medically clear for psychiatric evaluation Medical Decision Making - Medical Decision Making 57 male who was seen and evaluated by psychiatry, patient said be admitted for psychiatric evaluation and treatment Disposition Clinical Impression: Depression, Continuous auditory hallucinations Disposition: TRANSFER TO PSYCH HOSP/UNIT Condition: Fair Referrals: None,Stated [Primary Care Provider] - 1-2 days
[2017-09-08] MEDS ORDERED: KETOROLAC 60 MG/2 ML VIAL IM STA (12:12)
[2017-09-08] MEDS ORDERED: HYDROcodone/APAP 5-325MG 1 EACH TAB PO STA (12:12)
[2017-09-08 15:52] LABS: Amphetamine Screen,Urine Not Detected (NotDetected); Barbiturate Screen,Urine Not Detected (NotDetected); Benzodiazepines Screen,Urine Not Detected (NotDetected); Cocaine Screen,Urine Detected (NotDetected); Methadone Screen, Urine Not Detected (NotDetected); Opiate Screen,Urine Not Detected (NotDetected); Oxycodone Screen, Urine Not Detected (NotDetected); Phencyclidine Screen,Urine Not Detected (NotDetected); Tricyclic Antidepressant,Urine Not Detected (NotDetected); Urn Cannabinoid Scrn Detected (NotDetected)
[2017-09-08 16:20] LABS: Basophils # (A) 0.1 k/uL (0-0.2); Basophils % (A) 1 %; Eosinophils # (A) 0.2 k/uL (0-0.7); Eosinophils % (A) 4 %; HCT 44.8 % (39.0-53.0); HGB 15.1 gm/dL (13.0-17.5); Lymphocytes # (A) 2.3 k/uL (1.0-4.8); Lymphocytes % (A) 36 %; MCH 30.9 pg (25.0-35.0); MCHC 33.6 g/dL (31.0-37.0); MCV 91.8 fL (80.0-100.0); Mean Platelet Volume 7.5; Monocytes # (A) 0.4 k/uL (0-1.0); Monocytes % (A) 6 %; Neutrophils # (A) 3.4 k/uL (1.3-7.7); Neutrophils % (A) 52 %; Platelet Count 343 k/uL (150-450); RBC 4.88 m/uL (4.30-5.90); RDW 13.6 % (11.5-15.5); WBC 6.5 k/uL (3.8-10.6)
[2017-09-08 16:22] LABS: Appearance,Urine Clear (Clear); Bilirubin,Urine Negative (Negative); Blood,Urine Negative (Negative); Color,Urine Yellow; Glucose,Urine (UA) Negative (Negative); Ketones,Urine 1+ (Negative); Leukocyte Esterase,Urine Negative (Negative); Nitrite,Urine Negative (Negative); PH, Urine 5.5 (5.0-8.0); Protein,Urine Trace (Negative); Specific Gravity,Urine 1.022 (1.001-1.035); Urobilinogen,Urine <2.0 mg/dL (<2.0)
[2017-09-08 16:35] LABS: Anion Gap 9 mmol/L; Blood Urea Nitrogen 12 mg/dL (9-20); Calcium 9.4 mg/dL (8.4-10.2); Carbon Dioxide 23 mmol/L (22-30); Chloride 107 mmol/L (98-107); Glucose 134 mg/dL (74-99); Potassium 4.4 mmol/L (3.5-5.1); Sodium 139 mmol/L (137-145)
[2017-09-08] MEDS ORDERED: ZIPRASIDONE 20 MG VIAL IM PRN (16:45)
[2017-09-08] MEDS ORDERED: MAGNESIUM HYDROXIDE 2,400 MG/10 ML CUP PO PRN (16:45)
[2017-09-08] MEDS ORDERED: MAG HYDROX/AL HYDROX/SIMETH 30 ML CUP PO PRN (16:45)
--- NOTE | 2017-09-08 18:07 | P.MDCNMH ---
History of Present Illness H&P Date: 09/08/17 Chief Complaint: Suicidal ideation 56-year-old -[place] gentleman GERD, prior history of cocaine use, history of significant EtOH use, nicotine dependence, presented to the emergency department because of suicidal thoughts. He has been hearing voices telling him to kill himself by cutting his wrist over the last several days. Patient reported that he has been more depressed lately. He has not been able to sleep much over the last several weeks. He denied having any physical symptoms other than his back pain. No shortness of breath, nausea or vomiting. No fevers or chills. He told me that 2 days ago he smoked a joint that has some cocaine and marijuana in it, he said he has been off drugs for about a year but recently relapsed. Review of Systems 12 point review of system was performed, negative except for HPI Past Medical History Past Medical History: GERD/Reflux Additional Past Medical History / Comment(s): chronic back pain, migraines, constipation. History of Any Multi-Drug Resistant Organisms: None Reported Past Surgical History: Hernia Repair Additional Past Surgical History / Comment(s): Right inguinal hernia repair Past Anesthesia/Blood Transfusion Reactions: No Reported Reaction Past Psychological History: Anxiety, Bipolar, Depression, Schizophrenia Smoking Status: Current every day smoker Past Alcohol Use History: None Reported Past Drug Use History: Cocaine, Marijuana - Past Family History Father Additional Family Medical History / Comment(s): Father at age 73 from a motor vehicle accident. Mother Additional Family Medical History / Comment(s): Mom at age 56 from breast cancer with brain tumor and she also had mental health issues. Sister(s) Additional Family Medical History / Comment(s): Patient has 2 sisters with no major medical problems. Brother(s) Additional Family Medical History / Comment(s): Patient has 1 brother that was killed. Patient did not give details. Son(s) Additional Family Medical History / Comment(s): He has one son with no major medical problems. Medications and Allergies Home Medications Medication Instructions Recorded Confirmed Type Unable To Assess [Unable to Assess] 09/08/17 09/08/17 History Allergies Allergy/AdvReac Type Severity Reaction Status Date / Time peanut [Peanut Butter] Allergy Unknown Verified 09/08/17 12:16 tomato Allergy Unknown Verified 03/19/18 12:16 seafood Allergy Unknown Uncoded 12/13/16 23:17 Physical Exam Vitals: Vital Signs Temp Pulse Pulse Resp BP BP Pulse Ox 09/08/17 16:52 97.1 F L 65 18 125/74 09/08/17 16:39 97.4 F L 60 16 138/86 99 09/08/17 11:57 98.6 F 61 18 142/92 99 Intake and Output 09/08/17 09/08/17 09/08/17 06:59 14:59 22:59 Other: Weight 90.718 kg 93.443 kg Constitutional: No acute distress, conversant, pleasant Eyes:Anicteric sclerae, moist conjunctiva, no lid-lag, PERRLA, ENMT: Oropharynx clear, no erythema, exudates Neck: Supple, FROM, no masses, or JVD, No carotid bruits, No thyromegaly Lungs: Scattered wheezes, Clear to percussion, Normal respiratory effort, no accessory muscle use Cardiovascular: Heart regular in rate and rhythm, No murmurs, gallops, or rubs, No peripheral edema Abdominal: Soft, Nontender, no guarding, rebound or rigidity, Normoactive bowel sounds, No hepatomegaly, No splenomegaly, No palpable mass Skin: Normal temperature, tone, texture, turgor, no induration, No subcutaneous nodules, No rash, lesions, No ulcers Extremities: No digital cyanosis, No clubbing, Pedal pulses intact and symmetrical, Radial pulses intact and symmetrical, No calf tenderness Psychiatric: Alert and oriented to person, place and time, flat affect, Neuro: Muscles Strength 5/5 in all 4 extremities, Sensation to light touch grossly present throughout, Cranial nerves II-XII grossly intact, no focal sensory deficits Cranial Nerve Examination - Cranial Nerves Cranial Nerve II- Optic: Intact Cranial Nerve III- Oculomotor: Intact Cranial Nerve IV- Trochlear: Intact Cranial Nerve V- Trigeminal: Intact Cranial Nerve - Abducens: Intact Cranial Nerve VII- Facial: Intact Cranial Nerve VIII- Auditory: Intact Cranial Nerve IX- Glossopharyngeal: Intact Cranial Nerve X- Vagus: Intact Cranial Nerve XI- Accessory: Intact Cranial Nerve XII- Hypoglossal: Intact Results CBC & Chem 7: 09/08/17 15:57 09/08/17 15:57 Labs: Abnormal Lab Results - Last 24 Hours (Table) 09/08/17 09/08/17 09/08/17 Range/Units 15:11 15:11 15:57 Glucose 134 H (74-99) mg/dL Urine Protein Trace H (Negative) Urine Ketones 1+ H (Negative) Urine Cocaine Screen Detected H (NotDetected) U Marijuana (THC) Screen Detected H (NotDetected) Assessment and Plan Plan: #1 Suicidal ideations/bipolar disorder/schizophrenia: Management per psychiatry #2 Smoking: Advised to quit Nicotine patch #3 Chronic back pain: Tylenol when necessary #4 Health maintenance: Labs CBC, CMP reviewed
[2017-09-08] MEDS: hydrOXYzine PAMOATE 25 MG CAP PO PRN (21:06)
[2017-09-09] MEDS: hydrOXYzine PAMOATE 25 MG CAP PO PRN ×2 (08:14→21:06)
--- NOTE | 2017-09-09 11:36 | P.HP ---
Psychiatric H&P - . H&P Date: 09/09/17 History & Physical: Allergies Allergy/AdvReac Type Severity Reaction Status Date / Time peanut [Peanut Butter] Allergy Unknown Verified 09/08/17 12:16 tomato Allergy Unknown Verified 09/08/17 12:16 seafood Allergy Unknown Uncoded 12/13/16 23:17 Vital Signs Temp 98.3 F 09/09/17 01:50 Pulse 72 09/09/17 01:50 Resp 16 09/09/17 01:50 BP 145/93 09/09/17 01:50 Pulse Ox 99 09/08/17 16:39 Intake & Output 09/08/17 09/09/17 09/09/17 18:59 06:59 18:59 Weight 93.443 kg Laboratory Last Values WBC 6.5 k/uL (3.8-10.6) 09/08/17 15:57 RBC 4.88 m/uL (4.30-5.90) 09/08/17 15:57 Hgb 15.1 gm/dL (13.0-17.5) 09/08/17 15:57 Hct 44.8 % (39.0-53.0) 09/08/17 15:57 MCV 91.8 fL (80.0-100.0) 09/08/17 15:57 MCH 30.9 pg (25.0-35.0) 09/08/17 15:57 MCHC 33.6 g/dL (31.0-37.0) 09/08/17 15:57 RDW 13.6 % (11.5-15.5) 09/08/17 15:57 Plt Count 343 k/uL (150-450) 09/08/17 15:57 Neutrophils % 52 % 09/08/17 15:57 Lymphocytes % 36 % 09/08/17 15:57 Monocytes % 6 % 09/08/17 15:57 Eosinophils % 4 % 09/08/17 15:57 Basophils % 1 % 09/08/17 15:57 Neutrophils # 3.4 k/uL (1.3-7.7) 09/08/17 15:57 Lymphocytes # 2.3 k/uL (1.0-4.8) 09/08/17 15:57 Monocytes # 0.4 k/uL (0-1.0) 09/08/17 15:57 Eosinophils # 0.2 k/uL (0-0.7) 09/08/17 15:57 Basophils # 0.1 k/uL (0-0.2) 09/08/17 15:57 Sodium 139 mmol/L (137-145) 09/08/17 15:57 Potassium 4.4 mmol/L (3.5-5.1) 09/08/17 15:57 Chloride 107 mmol/L (98-107) 09/08/17 15:57 Carbon Dioxide 23 mmol/L (22-30) 09/08/17 15:57 Anion Gap 9 mmol/L 09/08/17 15:57 BUN 12 mg/dL (9-20) 09/08/17 15:57 Creatinine 0.86 mg/dL (0.66-1.25) 09/08/17 15:57 Est GFR (CKD-EPI)AfAm >90 (>60 ml/min/1.73 sqM) 09/08/17 15:57 Est GFR (CKD-EPI)NonAf >90 (>60 ml/min/1.73 sqM) 09/08/17 15:57 Glucose 134 mg/dL (74-99) H 09/08/17 15:57 Calcium 9.4 mg/dL (8.4-10.2) 09/08/17 15:57 TSH 0.612 mIU/L (0.465-4.680) 09/08/17 15:57 Urine Color Yellow 09/08/17 15:11 Urine Appearance Clear (Clear) 09/08/17 15:11 Urine pH 5.5 (5.0-8.0) 09/08/17 15:11 Ur Specific [place] 1.022 (1.001-1.035) 09/08/17 15:11 Urine Protein Trace (Negative) H 09/08/17 15:11 Urine Glucose (UA) Negative (Negative) 09/08/17 15:11 Urine Ketones 1+ (Negative) H 09/08/17 15:11 Urine Blood Negative (Negative) 09/08/17 15:11 Urine Nitrite Negative (Negative) 09/08/17 15:11 Urine Bilirubin Negative (Negative) 09/08/17 15:11 Urine Urobilinogen <2.0 mg/dL (<2.0) 09/08/17 15:11 Ur Leukocyte Esterase Negative (Negative) 09/08/17 15:11 Urine Opiates Screen Not Detected (NotDetected) 09/08/17 15:11 Ur Oxycodone Screen Not Detected (NotDetected) 09/08/17 15:11 Urine Methadone Screen Not Detected (NotDetected) 09/08/17 15:11 Ur Propoxyphene Screen Not Detected (NotDetected) 09/08/17 15:11 Ur Barbiturates Screen Not Detected (NotDetected) 09/08/17 15:11 U Tricyclic Antidepress Not Detected (NotDetected) 09/08/17 15:11 Ur Phencyclidine Scrn Not Detected (NotDetected) 09/08/17 15:11 Ur Amphetamines Screen Not Detected (NotDetected) 09/08/17 15:11 U Methamphetamines Scrn Not Detected (NotDetected) 09/08/17 15:11 U Benzodiazepines Scrn Not Detected (NotDetected) 09/08/17 15:11 Urine Cocaine Screen Detected (NotDetected) H 09/08/17 15:11 U Marijuana (THC) Screen Detected (NotDetected) H 09/08/17 15:11 09/09/17 11:26 Identification: Patient is a 57-year-old male who presented to the emergency room with thoughts of committing suicide by using a knife. History of Present Illness: When interviewed this morning the patient states that he's been feeling suicidal on and off for several days but is unable to state why. Patient states that he was on Seroquel, was receiving it in [place] and was seen there because he went there. Patient then stated that he was at [facility] in July for 28 days and when he was discharged there he was seen in [place]. Patient is a poor historian answering most questions "I don't know". Patient states that he also has homicidal thoughts on and off with no specific target and is vague in the reasons for having these thoughts. Patient is unable to tell me when he last took Seroquel or when he was last seen in outpatient treatment. Patient reports that he is feeling suicidal and depressed and states that he also is hearing voices that are just noise. Patient did not verbalize any symptoms spontaneously but would respond yes to any symptoms that I asked him about. Patient states he has not been sleeping and has been living with a friend. He states that he is marijuana and cocaine once since his discharge from [facility]. Patient was unable to give me any other history of his prior symptoms, when his first inpatient treatment began or what medications he has been on in the past. Past Psychiatric History: From review of the records the patient was admitted in September and November 2016 and was last discharged on Prolixin and long-acting injectable. Patient was also on Risperdal and he states Seroquel. Per [facility] at the team meeting the patient was seen at [facility] from November to April 2017. Past Medical/Surgical History: Per the record the patient has a history of GERD , migraines and is status post hernia repair although the patient when asked could not tell me any of his medical problems Family History: Patient stated he does not know Social History: patient states that his parents are both he has to siblings and 2 siblings who are alive. He completed high school and worked in many different jobs. He's never been and has 2 children and has no idea where they are or their ages. He states he's supported on Social Security disability and has been living with a person who he would not name. Patient denied any abuse history. Substance Use History: patient states that he hasn't used alcohol for over a year and stated I don't know to how much he used. Patient states he is used marijuana in the past, and has used cocaine in the past but only used them once since he was released from [facility]. Patient denied any other drug use history and denied any IV drug use. Patient does use tobacco products Legal History: patient states that he's been arrested plenty of times but cannot tell me why Mental status: Appearance/Attitude: Patient is dressed in a hospital gown, makes intermittent eye contact and is superficially cooperative Behavior: Patient does not display any psychomotor agitation or retardation. Speech/Language: Patient only responds to questions, normal tone of voice and rhythm and he is coherent Thought Process: Patient responds to most questions "I don't know" Thought Content: Patient states that he is hearing noises, denies visual hallucination and states that he is paranoid that people are out to get him but cannot elaborate. He states that he has not been sleeping well. Patient states that he has been living with a friend. Suicidal/Homicidal Ideation: Patient states he was having suicidal thoughts and thought of using a knife and was having homicidal ideation on and off with no specific target. He states that he continues to have both of these but has no plan Sensorium/Cognition: Patient is alert and oriented to person, place, and time and his recent and remote memory are grossly intact Mood/Affect: Patient's mood is guarded and his affect is blunted Insight/Judgment: Patient's insight and judgment are limited Intellectual Functioning: Patient's intellectual functioning appears average. Strength/Weakness: patient has financial support/lack of compliance and follow- up with medication and outpatient appointments, use of drugs Assessment: patient presents with suicidal ideation and states that he is also hearing voices feeling paranoid and having vague homicidal thoughts on and often no particular target. Patient has not followed up at [facility] since April of last year and states that he was recently in [facility] for 28 days. Patient states that he was recently prescribed Seroquel and worked well for him. Patient is vague and a poor historian answering most questions I don't know. Patient reports that he used marijuana and cocaine only once since his release from [facility]. Admission Diagnosis: schizoaffective disorder, depressed, rule out schizophrenia ; rule out marijuana use disorder, rule out cocaine use disorder Plan: patient was admitted on a voluntary basis, placed on routine observation and group and activity therapy were ordered. Patient was also ordered routine laboratory studies and a medical consultation. I spoke with the patient and he was agreeable to retry Seroquel and 200 mg at bedtime. Patient was encouraged to attend groups and activities. Patient has required hospitalization to stabilize his mood and target his psychotic symptoms. 09/09/17 11:35
[2017-09-09] MEDS: QUEtiapine 200 MG TAB PO SCH (20:36)
--- NOTE | 2017-09-10 10:33 | P.PN ---
Progress Note - Text Progress Note Date: 09/10/17 Interval History: Patient is a 57-year-old male who presents, states that he didn't sleep well last night because his body isn't feeling good. Patient was unable to elaborate what he meant by that and became irritable with any questions regarding how he was feeling. Patient then stated that he has big bumps under his left arm that had been treated and biopsied in the past but he can't tell me where this was done. Patient stated that "when I feel better I will go to group" however patient is unable to elaborate what he means by feel better. Patient did not spontaneously verbalize any complaints or symptoms. Mental Status: Appearance/Attitude: Patient is appropriately dressed, makes intermittent eye contact and is superficially cooperative Behavior: Patient does not display any psychomotor agitation or retardation. Speech/Language: Patient responds to questions, speaks in a normal volume and rhythm and he is coherent Thought Process: Patient is goal-directed, no evidence of loose association or flight of ideas Thought Content: Patient denied any auditory or visual hallucinations and no delusions or paranoid ideation were elicited. Patient complained that he did not sleep well last night because his body didn't feel well but is unable to elaborate on that. Patient states he is not going to groups until he feels better. Patient complained about large lumps under his left arm. Patient states his sleep was disrupted last night because he wasn't feeling well. Patient does not verbalize spontaneously any symptoms or complaints. Suicidal/Homicidal Ideation: Patient did not verbalize any current suicidal or homicidal ideation Sensorium/Cognition: Patient is alert and oriented to person, place, and time and his recent and remote memory are grossly intact Mood/Affect: Patient's mood remains irritable and his affect is blunted Insight/Judgment: Patient's insight and judgment are fair Assessment: Patient remains irritable, staying in his room and not attending groups or activities stating that when he feels better he will. Patient does not verbalize spontaneously any symptoms or complaints and states that he doesn' t feel well and asked why he didn't sleep well. Patient complained of lumps under his left arm that have been biopsied and treated in the past. Patient is not exhibiting any symptoms of psychosis, he is not verbalizing any depressive symptoms other then I don't feel good and there is no evidence of any manic symptoms. Plan: Patient will continue on Seroquel 200 mg at bedtime, will have the medical doctor md/medical director reevaluate the patient due to his complaints as well as nursing palpating lumps under his left arm. Will continue to encourage patient to attend groups and activities and begin planning discharge as patient is not exhibiting any acute symptoms of psychosis, lizett or depression.
[2017-09-10 10:35] LABS: ALT 28 U/L (21-72); AST 18 U/L (17-59); Albumin 3.6 g/dL (3.5-5.0); Alkaline Phosphatase 104 U/L (38-126); Total Bilirubin 0.4 mg/dL (0.2-1.3); Total Protein 6.9 g/dL (6.3-8.2)
[2017-09-10 11:36] VITALS: BMI 32.2
--- NOTE | 2017-09-10 12:13 | P.PN ---
Progress Note - Text Progress Note Date: 09/10/17 Called to examine the patient for lumps under his left shoulder and axillary area Patient states that he has been having these for the last week or saw and he did have similar lesions before and has been given antibiotics and after which they resolved Examine the lesions They appear to be hidradenitis and cellulitis We will start the patient on clindamycin Once the patient is discharged home he can have clindamycin 600 mg by mouth 3 times a day for 1 week and to follow-up with primary care physician To ensure resolving of the lesions Further workup as an outpatient in the lesions don't resolve in a week
[2017-09-10] MEDS: NICOTINE 21MG/24HR PATCH TRANSDERM SCH (12:15)
[2017-09-10] MEDS: hydrOXYzine PAMOATE 25 MG CAP PO PRN (12:16)
[2017-09-10 13:14] LABS: Appearance,Urine Clear (Clear); Bilirubin,Urine Negative (Negative); Blood,Urine Negative (Negative); Color,Urine Yellow; Glucose,Urine (UA) Negative (Negative); Ketones,Urine Negative (Negative); Leukocyte Esterase,Urine Negative (Negative); Nitrite,Urine Negative (Negative); PH, Urine 5.5 (5.0-8.0); Protein,Urine Negative (Negative); Specific Gravity,Urine 1.022 (1.001-1.035); Urobilinogen,Urine <2.0 mg/dL (<2.0)
[2017-09-10] MEDS: CLINDAMYCIN 150 MG CAP PO SCH ×2 (16:12→21:26)
[2017-09-10] MEDS: valACYclovir 500 MG TAB PO SCH (20:47)
[2017-09-10] MEDS: QUEtiapine 200 MG TAB PO SCH (20:48)
[2017-09-11] MEDS: hydrOXYzine PAMOATE 25 MG CAP PO PRN ×2 (01:53→22:38)
[2017-09-11] MEDS: NICOTINE 21MG/24HR PATCH TRANSDERM SCH (08:43)
[2017-09-11] MEDS: CLINDAMYCIN 150 MG CAP PO SCH ×3 (08:43→21:02)
[2017-09-11] MEDS: valACYclovir 500 MG TAB PO SCH ×2 (08:44→21:02)
--- NOTE | 2017-09-11 13:24 | P.PN ---
Progress Note - Text Progress Note Date: 09/11/17 Interval History: Patient is a 57-year-old male who was seen today, he states that he is now on the antibiotic and antiviral but his left arm still bothers him. Patient did not verbalize any complaints other than that he did not sleep well last night and was up walking in the [place] all night. Patient had spent the day in his room and had attended 1 group and was out in the afternoon conversing with another peer. Patient stated that he wanted his Seroquel increased to 200 in the morning and 400 at bedtime. Patient stated that he wasn 't ready to be discharged when I asked about discharge possibly tomorrow. Patient then verbalized that he was hearing voices which he could not describe other than that they were voices, stated he was suicidal and stated that he was homicidal and it was directed at anyone. Mental Status: Appearance/Attitude: Patient is appropriately dressed, makes intermittent eye contact and is superficially cooperative Behavior: Patient does not display any psychomotor agitation or retardation. Speech/Language: Patient's speech is spontaneous, of normal volume and rhythm and he is coherent Thought Process: Patient is goal-directed, his answers are brief and non- elaborative, is not circumstantial or tangential Thought Content: Patient reports he is hearing voices, denies visual hallucinations and no paranoid or delusional ideation is elicited. Patient does not appear to be responding to internal stimuli. Patient does not spontaneously verbalize any complaints other than that he is not sleeping and his medication needs to be increased. Patient states that he was up all night walking the halls. Patient states his appetite is good. Suicidal/Homicidal Ideation: Patient stated he suicidal and homicidal, but could not tell me to whom he was homicidal Sensorium/Cognition: Patient is alert and oriented to person, place, and time and his recent and remote memory are grossly intact. Mood/Affect: Patient's mood is belligerent and his affect is blunted Insight/Judgment: Patient's insight and judgment are fair Assessment: Patient spontaneously verbalize that he needed his Seroquel increased to 200 mg in the morning and 400 mg at night, stated that his sleep was poor last night because his left arm was bothering him and that he was up walking most of the night. When I asked the patient about how many groups he attended yesterday he said one. Patient was in his room most of the day in bed. When I discussed discharge with the patient he then immediately stated that he was hearing voices, was suicidal and homicidal. Patient does not appear to be responding to internal stimuli. Patient cannot elaborate on his symptoms and when asked to becomes irritable and states that he isn't being treated well. Patient stated that if I wanted to discharge him I could today and he would just go to another hospital. Plan: Will increase the Seroquel to 400 mg at bedtime, continue to encourage the patient to attend groups and continue to encourage patient to stay up and out of his bed during the day so that his sleep is better at night. Patient was begun on clindamycin and Valtrex yesterday by the durable medical equipment technician. Continue to consider discharge tomorrow or at the beginning of next week.
[2017-09-11] MEDS: QUEtiapine 400 MG TAB PO SCH (21:02)
[2017-09-11] MEDS: ACETAMINOPHEN TAB 325 MG TAB PO PRN (22:38)
[2017-09-12] MEDS: NICOTINE 21MG/24HR PATCH TRANSDERM SCH (09:00)
[2017-09-12] MEDS: CLINDAMYCIN 150 MG CAP PO SCH ×3 (09:00→20:56)
[2017-09-12] MEDS: valACYclovir 500 MG TAB PO SCH ×2 (09:00→20:56)
--- NOTE | 2017-09-12 12:26 | P.PN ---
Progress Note - Text Progress Note Date: 09/12/17 Interval History: Patient is a 57-year-old male who was seen today and he reported that he had some difficulty falling asleep but was able to sleep for about 5 hours last night. He states he attended several groups yesterday in the afternoon. He reported to me that his "my voices, depression and suicide thoughts are getting better". Patient states that he wants to restart Seroquel 200 mg in the morning as well. Patient stated that he is eating and his appetite has improved. He continued to complain of discomfort in the left axilla but he is receiving antibiotics for this. 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 Patient and I discussed his plans for discharge and he states that he may return to the [place] area as his sister is ill with cancer. Mental Status: Appearance/Attitude: Patient is appropriately dressed, makes intermittent eye contact and is superficially cooperative. Behavior: Patient does not display any psychomotor agitation or retardation. Speech/Language: Patient's speech is spontaneous, normal volume and rhythm and he is coherent. Thought Process: Patient is goal-directed, does not elaborate when asked, no evidence of loose associations or flight of ideas Thought Content: Patient continues to report hearing voices but is unable to tell me what they are saying, he denies visual hallucinations. No paranoid or delusional ideation is elicited. Patient states that he slept better last evening and his appetite is improving. Suicidal/Homicidal Ideation: Patient states that he continues to have suicidal ideation but will not elaborate further regarding a plan or intent to act and denies any current homicidal ideation Sensorium/Cognition: Patient is alert and oriented to person, place, and time and his recent and remote memory are grossly intact. Mood/Affect: Patient reports that his depression is improving, again with little elaboration on the symptoms and his affect is blunted Insight/Judgment: Patient's insight and judgment are fair Assessment: Patient reports improvement in his depression, auditory hallucinations and suicidal ideation and again with little elaboration of what the symptoms are. Patient discussed that he plans to perhaps go to [place] or [place] after discharge but cannot be more specific. Patient requested that Seroquel 200 mg twice a day it in the morning as he states that this is been his previous medications for the last several months. Patient attended 2 groups yesterday in the afternoon, states that he will try to attend groups today. Plan: Patient will start Seroquel 200 mg in the morning and continue on 400 mg at bedtime. Patient and I discussed discharge on Friday and for him to confirm where he is going to live after discharge so that follow-up plans can be made area
[2017-09-12] MEDS: QUEtiapine 400 MG TAB PO SCH (20:56)
[2017-09-12] MEDS: hydrOXYzine PAMOATE 25 MG CAP PO PRN (20:58)
[2017-09-12] MEDS: ACETAMINOPHEN TAB 325 MG TAB PO PRN (20:58)
[2017-09-13] MEDS: valACYclovir 500 MG TAB PO SCH ×2 (08:54→20:24)
[2017-09-13] MEDS: CLINDAMYCIN 150 MG CAP PO SCH ×3 (08:54→20:24)
[2017-09-13] MEDS: NICOTINE 21MG/24HR PATCH TRANSDERM SCH (08:55)
[2017-09-13] MEDS: QUEtiapine 200 MG TAB PO SCH (08:56)
--- NOTE | 2017-09-13 13:20 | P.PN ---
Progress Note - Text Progress Note Date: 09/13/17 I am seeing this patient on behalf of Dr. Hsu for a follow-up examination. Patient says he slept better with 400 mg of Seroquel last night. He says the voices and suicidal thoughts are almost gone but they are still there. He says he was taking 600 mg of Seroquel at night in the past. He was counseled about it. He has a diagnosis of schizoaffective disorder and he agreed to try Trileptal in addition to Seroquel. He asked if I can send him to see the doctor regarding the lumps on his left axilla. He was seen by the doctor on the who had ordered him antibiotics and suggested that patient needs to see a surgeon to get those incised after 7 days if they continue to be swollen. Patient was advised of this and he agreed to wait. This is a black ambulatory male with adequate hygiene. He is polite and cooperative. He does not show any psychomotor agitation or retardation. His speech is soft short and goal-directed. His mood is rather dull and affect is somewhat constricted in range. He denies delusional thinking. He says he still hears voices and has occasional suicide thoughts. His insight seems to be fair and judgment appears to be adequate. He is well oriented with adequate memory concentration general fund of knowledge etc. Plan: Continue Seroquel as ordered, start on Trileptal 300 mg twice a day for mood stabilization, continue antibiotics and antiviral meds as ordered, continue groups and other therapies.
[2017-09-13] MEDS: OXcarbazepine 300 MG TAB PO SCH ×2 (15:04→20:24)
[2017-09-13] MEDS: QUEtiapine 400 MG TAB PO SCH (20:24)
[2017-09-14] MEDS: NICOTINE 21MG/24HR PATCH TRANSDERM SCH (08:44)
[2017-09-14] MEDS: OXcarbazepine 300 MG TAB PO SCH ×2 (08:45→20:54)
[2017-09-14] MEDS: valACYclovir 500 MG TAB PO SCH ×2 (08:45→20:54)
[2017-09-14] MEDS: CLINDAMYCIN 150 MG CAP PO SCH (08:45)
[2017-09-14] MEDS: QUEtiapine 200 MG TAB PO SCH ×2 (08:45→20:54)
--- NOTE | 2017-09-14 13:08 | P.GSCN ---
History of Present Illness Consult date: 09/14/17 Reason for Consult: Painful lumps in the left axilla History of present illness: The patient is a 57-year-old man who has some painful lumps in the left axilla. These have been going on a week or more. He was started on antibiotics on the in the hasn't resolved. Have a history of this occurring in the past. He's had an incision and drainage in the past. He may or may not have had MRSA previously. Occasionally notices a lump on the right side. Review of Systems All systems: negative (See H&P for referral review of systems.) - Constitutional Reports chills (Possibly chills), Denies fever, Denies weight loss - Respiratory Respiratory Comment(s): Denies shortness of breath Reports cough Past Medical History Past Medical History: GERD/Reflux Additional Past Medical History / Comment(s): chronic back pain, migraines, constipation. History of Any Multi-Drug Resistant Organisms: None Reported Past Surgical History: Hernia Repair Additional Past Surgical History / Comment(s): Right inguinal hernia repair Past Anesthesia/Blood Transfusion Reactions: No Reported Reaction Past Psychological History: Anxiety, Bipolar, Depression, Schizophrenia Additional Psychological History / Comment(s): Pt states he is living in an apartment with friends. He uses no assistive device. He states he does not drive but is unable to state how he gets to appts. He states he has the above psychiatric problems. He states he has been suicidal in the past but not for a long time now. Smoking Status: Current every day smoker Past Alcohol Use History: None Reported Additional Past Alcohol Use History / Comment(s): Pt states he started smoking as a teen. He denies alcohol use but PMH indicate alcohol abuse. Se blood alcohol was 70 this admission. Past Drug Use History: Cocaine, Marijuana Additional Drug Use History / Comment(s): Pt denies drug use. Past medical hx indicated cocaine abuse and marijuana use. - Past Family History Father Additional Family Medical History / Comment(s): Father at age 73 from a motor vehicle accident. Mother Additional Family Medical History / Comment(s): Mom at age 56 from breast cancer with brain tumor and she also had mental health issues. Sister(s) Additional Family Medical History / Comment(s): Patient has 2 sisters with no major medical problems. Brother(s) Additional Family Medical History / Comment(s): Patient has 1 brother that was killed. Patient did not give details. Son(s) Additional Family Medical History / Comment(s): He has one son with no major medical problems. Medications and Allergies Home Medications and Allergies Comment(s): Hospital medications are reviewed Home Medications Medication Instructions Recorded Confirmed Type Unable To Assess [Unable to Assess] 09/08/17 09/08/17 History Allergies Allergy/AdvReac Type Severity Reaction Status Date / Time peanut [Peanut Butter] Allergy Unknown Verified 09/08/17 12:16 tomato Allergy Unknown Verified 09/08/17 12:16 seafood Allergy Unknown Uncoded 12/13/16 23:17 Surgical - Exam Osteopathic Statement: *. No significant issues noted on an osteopathic structural exam other than those noted in the History and Physical/Consult. Vital Signs Temp Pulse Resp BP Pulse Ox 98.6 F 61 18 142/92 99 09/08/17 11:57 09/08/17 11:57 09/08/17 11:57 09/08/17 11:57 09/08/17 11:57 - General well developed, well nourished, no distress - Eyes normal ocular movement - Neck trachea midline, no lymphadectomy - Respiratory normal expansion, normal respiratory effort, clear to auscultation - Cardiovascular Rhythm: regular - Integumentary There are several subcentimeter cutaneous nodules in the left axilla consistent with hidradenitis. No evidence of abscess. - Psychiatric oriented to time, oriented to person, oriented to place No lymphadenopathy in the neck, axilla, supra or infraclavicular areas. Results - Labs 09/08/17 15:57 09/08/17 15:57 Assessment and Plan (1) Hidradenitis Current Visit: Yes Status: Acute Code(s): L73.2 - HIDRADENITIS SUPPURATIVA SNOMED Code(s): 52244787 Plan: There is no current drainable abscess. This is not improving with clindamycin. With his possible history of MRSA we'll switch him over to Bactrim DS. I'll recheck to make sure the area is not progressing.
[2017-09-14] MEDS: SULFAMETHOX-TMP 800-160MG 1 EACH TAB PO SCH ×2 (13:45→20:54)
--- NOTE | 2017-09-14 15:34 | P.PN ---
Progress Note - Text Progress Note Date: 09/14/17 Patient was seen for routine follow-up examination. We had discussed about his lungs on his left axilla yesterday and his doctor's recommendations to wait for 7 days on antibiotics before anything else could be done. Yesterday he had agreed with this recommendation when I spoke with him. But for reasons not clear he was seen by a surgical training specialist today who had started him on Bactrim. He was started on Trileptal 300 mg twice a day for additional mood stabilization etc. Today he is asking if his nighttime Seroquel could be increased to 600 mg at bedtime. He also reported that last night he had recurrence of suicide thoughts and depression is getting worse. When he was asked the precipitators he said his sister has cancer which has mood or low over her body and he is feeling bad about it. But, interestingly he does not know what kind of a cancer she has. He is on Valtrex for "herpes of lips"and he is also asking for some kind of a cream to be applied locally. When he was told that he is already on systemic antiviral medication he settled down. It will be interesting to know if he will ask somebody else to get something for this later on today. This is a black ambulatory male with good hygiene. He is cooperative. He does not show any psychomotor agitation or retardation. He did not make any eye contact when he was talking about his recurrence of suicide thoughts and how he got to see another doctor regarding his mass in his left axilla. His speech is spontaneous and goal-directed. His mood is euthymic and affect is appropriate. He reports of questionable suicide thoughts. He denies homicidal thoughts. He denies hallucinations and delusional thinking. He is well oriented with adequate memory concentration etc. Plan: Increase at bedtime Seroquel to 600 mg per his request. Continue groups and other therapies.
[2017-09-15] MEDS: ACETAMINOPHEN TAB 325 MG TAB PO PRN (00:53)
[2017-09-15] MEDS: QUEtiapine 200 MG TAB PO SCH ×2 (08:29→20:38)
[2017-09-15] MEDS: valACYclovir 500 MG TAB PO SCH ×2 (08:29→20:38)
[2017-09-15] MEDS: OXcarbazepine 300 MG TAB PO SCH (08:29)
[2017-09-15] MEDS: SULFAMETHOX-TMP 800-160MG 1 EACH TAB PO SCH ×2 (08:29→20:38)
[2017-09-15] MEDS: NICOTINE 21MG/24HR PATCH TRANSDERM SCH (08:29)
--- NOTE | 2017-09-15 11:21 | P.PN ---
Progress Note - Text Progress Note Date: 09/15/17 Interval History: Patient is a 57-year-old male who was seen today and he reports that he continues to hear voices which she cannot describe, states that the suicidal thoughts of not completely left and when asked about if he has a plan he stated "seems like it". He stated that his sister is coming from [place] for him on Friday and stated that she told him to stay here until she can come and pick him up. Patient states that he saw the surgeon in the lumps in his left axilla continued to bother him, patient states that they need to be lanced. Patient states that he's been sleeping. Mental Status: Appearance/Attitude: Patient is appropriately dressed, makes intermittent eye contact and is superficially cooperative. Behavior: He does not display any psychomotor agitation or retardation, he appears more sedated today. Speech/Language: Patient's speech is slow, he responds in brief sentences in a soft voice with normal rhythm and he is coherent Thought Process: Patient is goal-directed although his responses to most questions are very brief and non-elaborative. Thought Content: Patient states that the voices have decreased but are still present, he denies visual hallucinations and no delusions or paranoid ideation were elicited. Patient states that he is sleeping and eating well. Patient reports that he continues to have suicidal thoughts they have not completely laughed and he doesn't want to leave until those are completely gone. Suicidal/Homicidal Ideation: Patient reports he continues to have suicidal ideation and when asked what his plans were he said "seems like it". Patient denies any current homicidal ideation. Sensorium/Cognition: Patient is alert and oriented to person, place, and time and his recent and remote memory are grossly intact. Mood/Affect: Patient's mood is slightly depressed and his affect is blunted Insight/Judgment: Patient's insight and judgment are fair. Assessment: Patient reports that the addition of the Trileptal didn't nothing for his mood, he states the increase in the p.m. Seroquel to 600 mg assisted with his sleep. He continues to voice that he is hearing auditory hallucinations and continues to have suicidal thoughts and states that his sister can pick him up until Friday and so he wants to stay until then. Patient complains that the lumps under his arm are still painful and still there and feels that they need surgery. Patient has been attending late afternoon groups for a brief period of time otherwise patient spends the bulk of his time in his bed. Plan: We will discontinue Trileptal, continue Seroquel 200 in the morning 600 at bedtime. Patient is currently on Bactrim for his infection changed from clindamycin and surgery will re-visit the patient tomorrow to assess his response to the Bactrim. We'll plan for patient's discharge on Friday and patient states he will be living in the [facility] and will arrange for follow -up there.
[2017-09-16] MEDS: hydrOXYzine PAMOATE 25 MG CAP PO PRN ×2 (00:14→23:35)
[2017-09-16] MEDS: ACETAMINOPHEN TAB 325 MG TAB PO PRN ×3 (00:14→20:47)
[2017-09-16] MEDS: valACYclovir 500 MG TAB PO SCH ×2 (08:40→20:45)
[2017-09-16] MEDS: SULFAMETHOX-TMP 800-160MG 1 EACH TAB PO SCH ×2 (08:40→20:45)
[2017-09-16] MEDS: QUEtiapine 200 MG TAB PO SCH ×2 (08:41→20:45)
[2017-09-16] MEDS: NICOTINE 21MG/24HR PATCH TRANSDERM SCH (08:41)
--- NOTE | 2017-09-16 11:22 | P.PN ---
Subjective Progress Note Date: 09/16/17 Principal diagnosis: hidradenitis supurativa The patient seen and rounds. He said he started having drainage from the left armpit. He says it hurts more and is more swollen. Objective - Vital Signs Vital signs: Vital Signs Temp 98.0 F 09/16/17 04:30 Pulse 93 09/16/17 04:30 Resp 18 09/16/17 04:30 BP 120/72 09/16/17 04:30 Pulse Ox 99 09/08/17 16:39 - Constitutional General appearance: Present: cooperative, no acute distress - Integumentary Integumentary Comment(s): There is a 2-3 mm skin opening draining some clearish fluid. Swelling is about a centimeter in size. No evidence of any fluctuance or undrained abscess. Evidence of any deeper infection. - Labs CBC & Chem 7: 09/08/17 15:57 09/08/17 15:57 Assessment and Plan (1) Hidradenitis Current Visit: Yes Status: Acute Code(s): L73.2 - HIDRADENITIS SUPPURATIVA SNOMED Code(s): 04182297 Plan: This does not appear to improved with switch to Bactrim. At this point I don't feel undrained abscess. We'll get a culture of the skin since he's had MRSA in the past. Ask Dr. Alford for his input regarding discharge antibiotics.
[2017-09-16] MEDS ORDERED: POLYETHYLENE GLYCOL 3350 17 GM POWD.PACK PO STA (11:56)
--- NOTE | 2017-09-16 12:37 | P.PN ---
Progress Note - Text Progress Note Date: 09/16/17 Interval History: Patient is a 57-year-old male who was seen today and he reports that he slept well last night but that his left axilla continues to bother him. Patient now has a bandage over his left axilla stating that it opened and drained, yesterday when I examined the patient and he showed me his left axilla there was no evidence of any open area or drainage. Patient states that it is sore and bothers him. Patient states that he still feels ready to leave tomorrow to go to [place] to stay with his sister. Patient did not report any suicidal or homicidal thoughts and states that the voices are well controlled. Mental Status: Appearance/Attitude: Patient is appropriately dressed, makes intermittent eye contact and is cooperative. Behavior: Patient does not exhibit any psychomotor agitation or retardation. Speech/Language: Patient's speech is spontaneous, his responses are brief, he speaks in a normal volume and rhythm and he is coherent Thought Process: Patient is goal-directed, is no evidence of loose association or flight of ideas. Thought Content: Patient denies any visual hallucination and states that the auditory hallucinations have continued to decrease, he denies any paranoid or delusional ideation and none is elicited. Patient states that he is sleeping and eating well. Suicidal/Homicidal Ideation: Patient denies any current suicidal or homicidal ideation. Sensorium/Cognition: Patient is alert and oriented to person, place, and time and his recent and remote memory are grossly intact. Mood/Affect: Patient's mood remains slightly blunted Insight/Judgment: Patient's insight and judgment are fair Assessment: Patient reports that he is ready for discharge and will return to live with his sister in [place]. Patient states that his sleep is okay and that the voices have decreased significantly and he is no longer feeling suicidal or homicidal. Patient was seen by surgery this morning and a culture was requested. Patient has been attending 1 group a day spending most of his time in his room in bed. Patient reports no side effects from the medication and feels that the Seroquel his at an appropriate level now. Plan: Patient will continue on Seroquel 200 mg in the morning 600 mg at bedtime , plan for discharge tomorrow to return to [place] to live with his sister, patient continues to refuse to sign a release of information to speak with her. Patient reported constipation not having moved his bowels for several days and that milk of magnesia was not beneficial and so MiraLAX was ordered 1.
--- NOTE | 2017-09-16 23:28 | P.CONS ---
History of Present Illness - Reason for Consult Consult date: 09/16/17 - Chief Complaint Tender left axilla - History of Present Illness 57-year-old -[place] male presents to hospital with suicidal ideations. He constantly was admitted to the psychiatric unit. No history of schizoaffective disorder and chronic depression. He is receiving treatment still remains withdrawn and depressed and is being followed by psychiatry. The patient was seen by surgery and infectious diseases consultation was requested regarding the difficulty he has of his left axilla. With his head difficulties like this in the past. Is evidence of the development of subcutaneous lumps in the axillary area that are somewhat tender. Occasionally drain when they do they're somewhat of a foul material. The become tender sometimes and resolved spontaneous or they drain. Currently he has one of the areas and was given some clindamycin currentlybeen improvement and input was requested. Patient denies fever chill rigors or sweats. His depression is still active and being managed by psychiatry. No other skin lesions are noted at this time. Does not relate dyspnea and fevers chills or rigors or sweats. Review of Systems HEENT:Denies headache or acute visual change. Denies sinus or mouth discomforts. Denies neck stiffness or pain. Denies significant oral cavity pain. Denies difficulty on swallowing. Lungs: Denies significant shortness of breath, cough, sputum production, or hemoptysis. Cardiovascular: Denies significant shortness of breath, chest pain, chest wall pain, orthopnea, dyspnea on exertion, syncope Gastrointestinal:Denies nausea, vomiting, diarrhea, constipation, hematemesis, melena, hematochezia. No no significant change of bowel habit noticed. Musculoskeletal: denies significant myalgias or arthralgias. No new joint swelling. Denies new back pain. Skin: Recurrent and chronic lesions to the left axilla Neuro: Denies headache or visual change. Denies any new onset weakness or difficulty with ambulation. Denies falls or seizures. Psychiatric: As noted depression Endocrine: Denies significant fatigue, denies significant weight loss or weight gain. Past Medical History Past Medical History: GERD/Reflux Additional Past Medical History / Comment(s): chronic back pain, migraines, constipation. History of Any Multi-Drug Resistant Organisms: None Reported Past Surgical History: Hernia Repair Additional Past Surgical History / Comment(s): Right inguinal hernia repair Past Anesthesia/Blood Transfusion Reactions: No Reported Reaction Past Psychological History: Anxiety, Bipolar, Depression, Schizophrenia Additional Psychological History / Comment(s): Pt states he is living in an apartment with friends. He uses no assistive device. He states he does not drive but is unable to state how he gets to appts. He states he has the above psychiatric problems. He states he has been suicidal in the past but not for a long time now. Smoking Status: Current every day smoker Past Alcohol Use History: None Reported Additional Past Alcohol Use History / Comment(s): Pt states he started smoking as a teen. He denies alcohol use but PMH indicate alcohol abuse. Se blood alcohol was 70 this admission. Past Drug Use History: Cocaine, Marijuana Additional Drug Use History / Comment(s): Pt denies drug use. Past medical hx indicated cocaine abuse and marijuana use. - Past Family History Father Additional Family Medical History / Comment(s): Father at age 73 from a motor vehicle accident. Mother Additional Family Medical History / Comment(s): Mom at age 56 from breast cancer with brain tumor and she also had mental health issues. Sister(s) Additional Family Medical History / Comment(s): Patient has 2 sisters with no major medical problems. Brother(s) Additional Family Medical History / Comment(s): Patient has 1 brother that was killed. Patient did not give details. Son(s) Additional Family Medical History / Comment(s): He has one son with no major medical problems. Medications and Allergies Home Medications and Allergies Comment(s): Current Medications Acetaminophen (Tylenol Tab) 650 mg PO Q4HR PRN PRN Reason: Mild Pain/Discomfort Last Admin: 09/16/17 20:47 Dose: 650 mg Al Hydroxide/Mg Hydroxide (Maalox) 30 ml PO Q4HR PRN PRN Reason: GI Upset Hydroxyzine Pamoate (Vistaril) 50 mg PO TID PRN PRN Reason: Agitation or Acute Anxiety Last Admin: 09/16/17 00:14 Dose: 50 mg Magnesium Hydroxide (Milk Of Magnesia) 2,400 mg PO DAILY PRN PRN Reason: Constipation Last Admin: 09/15/17 20:57 Dose: 2,400 mg Nicotine (Habitrol 21mg/24hr Patch) 1 patch TRANSDERM DAILY CINTHIA Last Admin: 09/16/17 08:41 Dose: 1 patch Quetiapine Fumarate (Seroquel) 200 mg PO DAILY [facility] Last Admin: 09/16/17 08:41 Dose: 200 mg Quetiapine Fumarate (Seroquel) 600 mg PO HS [facility] Last Admin: 09/16/17 20:45 Dose: 600 mg Trimethoprim/Sulfamethoxazole (Bactrim Ds) 1 each PO BID [facility] Last Admin: 09/16/17 20:45 Dose: 1 each Valacyclovir HCl (Valtrex) 500 mg PO BID [facility] Last Admin: 09/16/17 20:45 Dose: 500 mg Ziprasidone (Geodon) 20 mg IM BID PRN PRN Reason: Agitation or Acute Psychosis Home Medications Medication Instructions Recorded Confirmed Type Unable To Assess [Unable to Assess] 09/08/17 09/08/17 History Allergies Allergy/AdvReac Type Severity Reaction Status Date / Time peanut [Peanut Butter] Allergy Unknown Verified 09/08/17 12:16 tomato Allergy Unknown Verified 09/08/17 12:16 seafood Allergy Unknown Uncoded 12/13/16 23:17 Physical Exam Vitals: Vital Signs Temp Pulse Resp BP 09/16/17 04:30 98.0 F 93 18 120/72 HEENT: Anicteric conjunctiva are pink and moist nasal mucosa grossly intact without significant lesions, there is no thrush. Neck: The neck is supple without significant lymphadenopathy or thyromegaly. Lungs: Symmetrical air entry is noted with few expiratory wheezes no bronchial sounds Heart: Regular rate and rhythm with an audible S1-S2, no S3 no S4. There is no significant murmur click or rub, PMI was nondisplaced. Abdomen: Positive bowel sounds soft and nontender without palpable masses or organomegaly. There was no guarding or rebound. Extremities: The upper extremities have excellent pulses they are symmetric, no significant petechiae or telangiectasia. No splinter hemorrhages were noted. The lower extremities are free from significant edema. The peripheral pulses were 2+ and symmetric. Skin evidence of the small tender area to the left axilla. Patient relates there have been some drainage but nothing is draining at this time. The indurated area is about 2 cm in size and tubular and shape. Tender manipulation is in the subcutaneous tissue no evidence of any fistula at this time. Right axilla is somewhat spared. No other lesions are seen in the skin at this time. Patient does relate he's had these in the past. Neuro: Awake alert oriented to person place and time. There are no acute new gross focal sensory motor deficits. Results CBC & Chem 7: 09/08/17 15:57 09/08/17 15:57 Labs: Microbiology - Last 24 Hours (Table) 09/16/17 12:38 Gram Stain - Preliminary Axilla - Left Wound Culture - Preliminary Laboratory Results WBC 6.5 k/uL (3.8-10.6) 09/08/17 15:57 RBC 4.88 m/uL (4.30-5.90) 09/08/17 15:57 Hgb 15.1 gm/dL (13.0-17.5) 09/08/17 15:57 Hct 44.8 % (39.0-53.0) 09/08/17 15:57 MCV 91.8 fL (80.0-100.0) 09/08/17 15:57 MCH 30.9 pg (25.0-35.0) 09/08/17 15:57 MCHC 33.6 g/dL (31.0-37.0) 09/08/17 15:57 RDW 13.6 % (11.5-15.5) 09/08/17 15:57 Plt Count 343 k/uL (150-450) 09/08/17 15:57 Neutrophils % 52 % 09/08/17 15:57 Lymphocytes % 36 % 09/08/17 15:57 Monocytes % 6 % 09/08/17 15:57 Eosinophils % 4 % 09/08/17 15:57 Basophils % 1 % 09/08/17 15:57 Neutrophils # 3.4 k/uL (1.3-7.7) 09/08/17 15:57 Lymphocytes # 2.3 k/uL (1.0-4.8) 09/08/17 15:57 Monocytes # 0.4 k/uL (0-1.0) 09/08/17 15:57 Eosinophils # 0.2 k/uL (0-0.7) 09/08/17 15:57 Basophils # 0.1 k/uL (0-0.2) 09/08/17 15:57 Sodium 139 mmol/L (137-145) 09/08/17 15:57 Potassium 4.4 mmol/L (3.5-5.1) 09/08/17 15:57 Chloride 107 mmol/L (98-107) 09/08/17 15:57 Carbon Dioxide 23 mmol/L (22-30) 09/08/17 15:57 Anion Gap 9 mmol/L 09/08/17 15:57 BUN 12 mg/dL (9-20) 09/08/17 15:57 Creatinine 0.86 mg/dL (0.66-1.25) 09/08/17 15:57 Est GFR (CKD-EPI)AfAm >90 (>60 ml/min/1.73 sqM) 09/08/17 15:57 Est GFR (CKD-EPI)NonAf >90 (>60 ml/min/1.73 sqM) 09/08/17 15:57 Glucose 134 mg/dL (74-99) H 09/08/17 15:57 Calcium 9.4 mg/dL (8.4-10.2) 09/08/17 15:57 Total Bilirubin 0.4 mg/dL (0.2-1.3) 09/08/17 15:57 AST 18 U/L (17-59) 09/08/17 15:57 ALT 28 U/L (21-72) 09/08/17 15:57 Alkaline Phosphatase 104 U/L (38-126) 09/08/17 15:57 Total Protein 6.9 g/dL (6.3-8.2) 09/08/17 15:57 Albumin 3.6 g/dL (3.5-5.0) 09/08/17 15:57 TSH 0.612 mIU/L (0.465-4.680) 09/08/17 15:57 Urine Color Yellow 09/10/17 11:49 Urine Appearance Clear (Clear) 09/10/17 11:49 Urine pH 5.5 (5.0-8.0) 09/10/17 11:49 Ur Specific [place] 1.022 (1.001-1.035) 09/10/17 11:49 Urine Protein Negative (Negative) 09/10/17 11:49 Urine Glucose (UA) Negative (Negative) 09/10/17 11:49 Urine Ketones Negative (Negative) 09/10/17 11:49 Urine Blood Negative (Negative) 09/10/17 11:49 Urine Nitrite Negative (Negative) 09/10/17 11:49 Urine Bilirubin Negative (Negative) 09/10/17 11:49 Urine Urobilinogen <2.0 mg/dL (<2.0) 09/10/17 11:49 Ur Leukocyte Esterase Negative (Negative) 09/10/17 11:49 Urine Opiates Screen Not Detected (NotDetected) 09/08/17 15:11 Ur Oxycodone Screen Not Detected (NotDetected) 09/08/17 15:11 Urine Methadone Screen Not Detected (NotDetected) 09/08/17 15:11 Ur Propoxyphene Screen Not Detected (NotDetected) 09/08/17 15:11 Ur Barbiturates Screen Not Detected (NotDetected) 09/08/17 15:11 U Tricyclic Antidepress Not Detected (NotDetected) 09/08/17 15:11 Ur Phencyclidine Scrn Not Detected (NotDetected) 09/08/17 15:11 Ur Amphetamines Screen Not Detected (NotDetected) 09/08/17 15:11 U Methamphetamines Scrn Not Detected (NotDetected) 09/08/17 15:11 U Benzodiazepines Scrn Not Detected (NotDetected) 09/08/17 15:11 Urine Cocaine Screen Detected (NotDetected) H 09/08/17 15:11 U Marijuana (THC) Screen Detected (NotDetected) H 09/08/17 15:11 Microbiology 09/16/17 12:38 Axilla - Left Gram Stain - Preliminary 09/16/17 12:38 Axilla - Left Wound Culture - Preliminary Assessment and Plan (1) Depression Current Visit: Yes Status: Acute Code(s): F32.9 - MAJOR DEPRESSIVE DISORDER , SINGLE EPISODE, UNSPECIFIED SNOMED Code(s): 64242763 (2) Hidradenitis Narrative/Plan: 57-year-old male with a history of polysubstance abuse, chronic depression presents to Hospital with depression. He is being evaluated and treated actively by psychiatry. His developed evidence of some hidradenitis to the left axillary area. Some drainage occurred dispensed monitor for culture. Antibiotic therapy sometimes is affected with doxycycline class antibiotics they 're able to treat staph and strep including MRSA and provide an anti- inflammatory response that is sometimes helpful for this chronic inflammatory skin conditions. Local wound care status with the dressing to absorb any drainage. Patient encouraged not to pick at the site. Oral anti-inflammatory will be given if possible. Current Visit: Yes Status: Acute Code(s): L73.2 - HIDRADENITIS SUPPURATIVA SNOMED Code(s): 10249711
[2017-09-17] MEDS ORDERED: HYDROcodone/APAP 5-325MG 1 EACH TAB PO ONE (01:09)
[2017-09-17] MEDS: valACYclovir 500 MG TAB PO SCH (08:01)
[2017-09-17] MEDS: DOXYCYCLINE 50 MG CAP PO SCH ×2 (08:01→20:26)
[2017-09-17] MEDS: NICOTINE 21MG/24HR PATCH TRANSDERM SCH (08:01)
[2017-09-17] MEDS: NAPROXEN 250 MG TAB PO SCH ×2 (08:01→20:25)
[2017-09-17] MEDS: QUEtiapine 200 MG TAB PO SCH ×2 (08:01→20:25)
[2017-09-17] MEDS ORDERED: POLYETHYLENE GLYCOL 3350 17 GM POWD.PACK PO STA (09:50)
--- NOTE | 2017-09-17 10:35 | P.DS ---
Providers Date of admission: 09/08/17 15:56 Expected date of discharge: 09/17/17 Attending physician: Elaine Hsu MD Consults: 09/08/17 17:13 Consult Physician Routine Consulting Provider: Kecia Morin Consult Reason/Comments: h&p Do you want consulting provider notified?: Already Contacted 09/14/17 12:05 Consult Physician Routine Consulting Provider: Tish Moon Consult Reason/Comments: eval axillary lymph nodes Do you want consulting provider notified?: Yes 09/16/17 09:07 Consult Physician Routine Consulting Provider: Sixto Alford Consult Reason/Comments: hidradenitis L axilla Do you want consulting provider notified?: Yes Primary care physician: Stated None Hospital Course: Discharge Diagnosis: Schizoaffective disorder, depressed; marijuana use disorder , cocaine use disorder Reason for Admission: Patient is a 57-year-old male who presented to the emergency room with thoughts of committing suicide by using a knife. When interviewed this morning the patient states that he's been feeling suicidal on and off for several days but is unable to state why. Patient states that he was on Seroquel, was receiving it in [place] and was seen there because he went there. Patient then stated that he was at [facility] in July for 28 days and when he was discharged then he was seen in [place]. Patient is a poor historian answering most questions "I don't know". Patient states that he also has homicidal thoughts on and off with no specific target and is vague in the reasons for having these thoughts. Patient is unable to tell me when he last took Seroquel or when he was last seen in outpatient treatment. Patient reports that he is feeling suicidal and depressed and states that he also is hearing voices that are just noise. Patient did not verbalize any symptoms spontaneously but would respond yes to any symptoms that I asked him about. Patient states he has not been sleeping and has been living with a friend. He states that he has used marijuana and cocaine once since his discharge from [facility]. Patient was unable to give me any other history of his prior symptoms, when his first inpatient treatment began or what medications he has been on in the past. Mental status on Admission: Appearance/Attitude: Patient is dressed in a hospital gown, makes intermittent eye contact and is superficially cooperative Behavior: Patient does not display any psychomotor agitation or retardation. Speech/Language: Patient only responds to questions, normal tone of voice and rhythm and he is coherent Thought Process: Patient responds to most questions "I don't know" Thought Content: Patient states that he is hearing noises, denies visual hallucination and states that he is paranoid that people are out to get him but cannot elaborate. He states that he has not been sleeping well. Patient states that he has been living with a friend. Suicidal/Homicidal Ideation: Patient states he was having suicidal thoughts and thought of using a knife and was having homicidal ideation on and off with no specific target. He states that he continues to have both of these but has no plan Sensorium/Cognition: Patient is alert and oriented to person, place, and time and his recent and remote memory are grossly intact Mood/Affect: Patient's mood is guarded and his affect is blunted Insight/Judgment: Patient's insight and judgment are limited Hospital Course: Patient was admitted on a voluntary basis, routine observation and group and activity therapy were ordered. Routine laboratory studies as well as a medical consultation were obtained. Patient was a poor historian answering most questions I don't know responding yes to any symptoms that were asked. Patient was restarted on Seroquel and was slowly increased to a dose of 200 in the morning and 600 at bedtime. Patient briefly was also started on Trileptal but this was discontinued as there is no evidence of bipolarity. Patient reported lumps in his left axilla and patient was placed on antibiotics with little improvement. He was seen by surgery who saw nothing to incise and drain, and antibiotics were changed again to Bactrim from clindamycin. There is some drainage noted and a dressing was placed the patient was seen by infectious disease at the request of surgery and placed on doxycycline. Patient continued to report that the lumps in his axilla were increasing and insisted that they needed to be drained. Patient did not attend most groups or activities, spending the bulk of his time in bed on the unit. Patient reported that he was constipated and given milk of magnesia with no results in one dose of MiraLAX with no results and was repeated on the morning of discharge. Patient was very vague about his discharge plans initially stating he was going to live with his sister in [place] and then of the day of discharge stating that that was not going to occur and he was going to stay in this area. Patient never signed a release of information to speak with his sister and refused to do a phone intake with [facility] in [place]. Patient reported no current suicidal ideation and stated that he heard voices at night last evening because he was in pain and couldn't sleep. Patient was mostly focused on his arm, insisting that he needed to see a different physician to have them drained. Patient remains vague about his symptoms and when not asked does not spontaneously verbalize any complaints other than physical complaints about the lumps under his left arm. Throughout the hospital stay the patient has not been noted or observed to be responding to internal stimuli, he has been seen interacting on rare occasion with other peers on the unit appropriately. Patient would attend 1 group a day for 10-15 minutes and leave, has been spending the bulk of his time on the unit in bed. Allergies peanut [Peanut Butter] Allergy (Verified 09/08/17 12:16) Unknown tomato Allergy (Verified 09/08/17 12:16) Unknown seafood Allergy (Uncoded 12/13/16 23:17) Unknown Laboratory Last Values WBC 6.5 k/uL (3.8-10.6) 09/08/17 15:57 RBC 4.88 m/uL (4.30-5.90) 09/08/17 15:57 Hgb 15.1 gm/dL (13.0-17.5) 09/08/17 15:57 Hct 44.8 % (39.0-53.0) 09/08/17 15:57 MCV 91.8 fL (80.0-100.0) 09/08/17 15:57 MCH 30.9 pg (25.0-35.0) 09/08/17 15:57 MCHC 33.6 g/dL (31.0-37.0) 09/08/17 15:57 RDW 13.6 % (11.5-15.5) 09/08/17 15:57 Plt Count 343 k/uL (150-450) 09/08/17 15:57 Neutrophils % 52 % 09/08/17 15:57 Lymphocytes % 36 % 09/08/17 15:57 Monocytes % 6 % 09/08/17 15:57 Eosinophils % 4 % 09/08/17 15:57 Basophils % 1 % 09/08/17 15:57 Neutrophils # 3.4 k/uL (1.3-7.7) 09/08/17 15:57 Lymphocytes # 2.3 k/uL (1.0-4.8) 09/08/17 15:57 Monocytes # 0.4 k/uL (0-1.0) 09/08/17 15:57 Eosinophils # 0.2 k/uL (0-0.7) 09/08/17 15:57 Basophils # 0.1 k/uL (0-0.2) 09/08/17 15:57 Sodium 139 mmol/L (137-145) 09/08/17 15:57 Potassium 4.4 mmol/L (3.5-5.1) 09/08/17 15:57 Chloride 107 mmol/L (98-107) 09/08/17 15:57 Carbon Dioxide 23 mmol/L (22-30) 09/08/17 15:57 Anion Gap 9 mmol/L 09/08/17 15:57 BUN 12 mg/dL (9-20) 09/08/17 15:57 Creatinine 0.86 mg/dL (0.66-1.25) 09/08/17 15:57 Est GFR (CKD-EPI)AfAm >90 (>60 ml/min/1.73 sqM) 09/08/17 15:57 Est GFR (CKD-EPI)NonAf >90 (>60 ml/min/1.73 sqM) 09/08/17 15:57 Glucose 134 mg/dL (74-99) H 09/08/17 15:57 Calcium 9.4 mg/dL (8.4-10.2) 09/08/17 15:57 Total Bilirubin 0.4 mg/dL (0.2-1.3) 09/08/17 15:57 AST 18 U/L (17-59) 09/08/17 15:57 ALT 28 U/L (21-72) 09/08/17 15:57 Alkaline Phosphatase 104 U/L (38-126) 09/08/17 15:57 Total Protein 6.9 g/dL (6.3-8.2) 09/08/17 15:57 Albumin 3.6 g/dL (3.5-5.0) 09/08/17 15:57 TSH 0.612 mIU/L (0.465-4.680) 09/08/17 15:57 Urine Color Yellow 09/10/17 11:49 Urine Appearance Clear (Clear) 09/10/17 11:49 Urine pH 5.5 (5.0-8.0) 09/10/17 11:49 Ur Specific [place] 1.022 (1.001-1.035) 09/10/17 11:49 Urine Protein Negative (Negative) 09/10/17 11:49 Urine Glucose (UA) Negative (Negative) 09/10/17 11:49 Urine Ketones Negative (Negative) 09/10/17 11:49 Urine Blood Negative (Negative) 09/10/17 11:49 Urine Nitrite Negative (Negative) 09/10/17 11:49 Urine Bilirubin Negative (Negative) 09/10/17 11:49 Urine Urobilinogen <2.0 mg/dL (<2.0) 09/10/17 11:49 Ur Leukocyte Esterase Negative (Negative) 09/10/17 11:49 Urine Opiates Screen Not Detected (NotDetected) 09/08/17 15:11 Ur Oxycodone Screen Not Detected (NotDetected) 09/08/17 15:11 Urine Methadone Screen Not Detected (NotDetected) 09/08/17 15:11 Ur Propoxyphene Screen Not Detected (NotDetected) 09/08/17 15:11 Ur Barbiturates Screen Not Detected (NotDetected) 09/08/17 15:11 U Tricyclic Antidepress Not Detected (NotDetected) 09/08/17 15:11 Ur Phencyclidine Scrn Not Detected (NotDetected) 09/08/17 15:11 Ur Amphetamines Screen Not Detected (NotDetected) 09/08/17 15:11 U Methamphetamines Scrn Not Detected (NotDetected) 09/08/17 15:11 U Benzodiazepines Scrn Not Detected (NotDetected) 09/08/17 15:11 Urine Cocaine Screen Detected (NotDetected) H 09/08/17 15:11 U Marijuana (THC) Screen Detected (NotDetected) H 09/08/17 15:11 Discharge Mental Status: Appearance/Attitude: Patient is appropriately dressed, found in his room in bed, makes intermittent eye contact and is superficially cooperative. Behavior: Patient does not exhibit any psychomotor agitation or retardation. Speech/Language: Patient's speech is spontaneous but his responses are brief and non-elaborative, he speaks in a soft voice and slow rhythm and is coherent Thought Process: Patient is goal-directed, his answers to most questions are brief and there is no evidence of loose association or flight of ideas. Thought Content: Patient states that he heard voices last night but has not heard them during the day and was not hearing them several days prior to this, he denies visual hallucinations and no delusions or paranoid ideation or elicited. Patient states that he cannot sleep secondary to his pain in his left arm however the patient spends the bulk of the day in bed and sleeps about 4 hours in the evening. Patient reports that his appetite is good. Patient is focused on his left arm complaining that the lumps should've been incised, that he is going to have an infection and needs to see a different physician. When the patient is confronted with the fact that he has seen 3 different physicians for this problem and that the antibiotic has been changed, a culture is pending he continues to insist that they needed to be drained. Suicidal/Homicidal Ideation: Patient denies any current suicidal or homicidal ideation. Sensorium/Cognition: Patient is alert and oriented to person, place, and time and his recent and remote memory are grossly intact. Mood/Affect: Patient's mood remains blunted Insight/Judgment: Patient's insight and judgment are fair Risk Assessment: Patient's risk for readmission is high this patient was not compliant with follow-up care or medication, there has been no recent history of suicide attempts and should patient return to using drugs.. Discharge Plan: Patient will be discharged, he is now reports stating that he is not going to live with his sister and will be staying in the area but declines to tell me where he will be staying. Patient declined to do a phone intake with [facility] in [place] and so will be referred back to community mental health here in [facility]. Patient states that he knows where their offices are and how to obtain services. Patient declined making follow-up appointments with the surgeon regarding his left axilla. Patient will continue on Seroquel 200 mg in the morning and 600 mg at bedtime, doxycycline will continue for a total of 14 days. Patient was told to have follow-up regarding the results of the culture done and he stated he will see another physician. Patient was encouraged to follow up with [facility] either here or in [place], encouraged to be compliant with his medications and patient was also told to avoid any alcohol or drug use. Patient continued to decline a follow-up appointment with a PCP, he was told that he needed to follow up regarding his axilla as well as with the culture results. Patient Condition at Discharge: Stable Plan - Discharge Summary Discharge Rx Participant: No New Discharge Prescriptions: New Doxycycline [Vibramycin] 100 mg PO BID #28 cap QUEtiapine [SEROquel] 200 mg PO DAILY #14 tab QUEtiapine FUMARATE [SEROquel] 600 mg PO HS #28 tab Discharge Medication List Doxycycline [Vibramycin] 100 mg PO BID #28 cap 09/17/17 [Rx] QUEtiapine FUMARATE [SEROquel] 600 mg PO HS #28 tab 09/17/17 [Rx] QUEtiapine [SEROquel] 200 mg PO DAILY #14 tab 09/17/17 [Rx] Follow up Appointment(s)/Referral(s): intake,intake [Other] - 1-2 Days None,Stated [Primary Care Provider] - 1-2 days Activity/Diet/Wound Care/Special Instructions: Keep your follow up appointments as scheduled. Continue medications as prescribed. No alcohol or street drugs. No guns or weapons. Crisis line if needed . Follow up regarding culture results. Discharge Disposition: HOME SELF-CARE
--- NOTE | 2017-09-17 13:12 | P.PN ---
Progress Note - Text Progress Note Date: 09/17/17 Interval History: Patient is a 57-year-old male who approached me after we had discussed his discharge today and stated that his arm her too much, he couldn't walk in his stomach was upset and he had yet to move his bowels and stated that he was suicidal and could not leave today. I confronted the patient with the fact that he has done this on several occasions during this hospital stay when I discussed discharge with him that he is then stated to me that he is suicidal or homicidal, patient denies that he did that stating that he really is suicidal. Patient again complained about his arm and the need for it to be incised. Mental Status: Appearance/Attitude: Patient is appropriately dressed, makes intermittent eye contact and is superficially cooperative. Behavior: Patient does not exhibit any psychomotor agitation or retardation. Speech/Language: Patient's speech is spontaneous, his responses are brief sentences with little elaboration and he is coherent Thought Process: Patient is goal-directed, responses are short sentences, no evidence of loose association or flight of ideas Thought Content: Patient denies any auditory or visual hallucinations currently but states he heard voices last night but cannot describe them to me. No delusions or paranoid ideation or elicited. Patient was ready for discharge and approached me several hours later stating that he needed to stay in the hospital for another day because he was suicidal because he was in pain, could not walk and could not move his bowels. Suicidal/Homicidal Ideation: Patient is now reporting suicidal ideation with no plan and no current homicidal ideation Sensorium/Cognition: He is alert and oriented to person, place, and time and his recent and remote memory are grossly intact. Mood/Affect: Patient's mood remains blunted Insight/Judgment: Patient's insight and judgment are limited Assessment: Patient had refused to do a phone intake for [facility] where he stated he was going to live with his sister, he then reported to me later in the morning that he was not going to [place] but was staying in the area. Patient states that he needs to have the lumps under his left axilla incised however he has been seen by surgery and 2 occasions and that has not been the recommendation. Patient has been changed to a different antibiotic after being seen by infectious disease yesterday. Patient was ready for discharge today but then approached me several hours later stating that he couldn't walk, was in a lot of pain, couldn't move his bowels and was now feeling suicidal and unable to leave. Patient had approached staff and stated that if he was discharged he would just return to the emergency room. Plan: I had a discussion with the patient after his request to stay in the hospital one more day regarding the fact that he brings up suicidality or homicidality every time discharge is discussed and that his discharge will be done tomorrow. Patient will continue on his current medications and Colace was also added at 100 mg daily on an as-needed basis. Patient was informed that he will need to comply with follow-up, making an appointment at [facility] in this area.
[2017-09-17] MEDS: DOCUSATE 100 MG CAP PO PRN (13:16)
[2017-09-17] MEDS: ACETAMINOPHEN TAB 325 MG TAB PO PRN (21:55)
[2017-09-17] MEDS: hydrOXYzine PAMOATE 25 MG CAP PO PRN (21:55)
[2017-09-18 05:40] VITALS: RESP 16
[2017-09-18] MEDS: NA PHOS,M-B/NA PHOS,DI-BA 133 ML ENEMA RECTAL ONE ×2 (08:37→11:33)
[2017-09-18] MEDS: NICOTINE 21MG/24HR PATCH TRANSDERM SCH (08:51)
[2017-09-18] MEDS: DOXYCYCLINE 50 MG CAP PO SCH ×2 (08:51→20:44)
[2017-09-18] MEDS: QUEtiapine 200 MG TAB PO SCH ×2 (08:52→20:45)
[2017-09-18] MEDS: NAPROXEN 250 MG TAB PO SCH ×2 (08:52→20:44)
[2017-09-18] MEDS: DOCUSATE 100 MG CAP PO PRN (09:24)
[2017-09-18] MEDS ORDERED: LACTULOSE 20 GM/30 ML CUP PO ONE (12:23)
[2017-09-18] MEDS ORDERED: POLYETHYLENE GLYCOL 3350 17 GM POWD.PACK PO SCH (12:45)
[2017-09-18] MEDS: POLYETHYLENE GLYCOL 3350 17 GM POWD.PACK PO SCH ×2 (12:54→20:48)
--- NOTE | 2017-09-18 13:28 | XR ---
EXAMINATION TYPE: XR abdomen 1V DATE OF EXAM: 09/18/2017 12:57 PM CLINICAL HISTORY: Constipation per order. TECHNIQUE: Two supine KUB images of the abdomen are obtained. COMPARISON: Abdominal x-ray series February 25, 2013.. FINDINGS: Scattered gas is seen in non-distended small bowel loops. Gas and fecal material is seen in non-distended colon. Amount of fecal material is not suspiciously prominent. Most amount of fecal ma terial is seen in the right colon. There is no visceromegaly, pneumoperitoneum, or abnormal calcifica tion appreciated. The lung bases are clear and the osseous structures are intact. IMPRESSION: Overall nonobstructive bowel gas pattern. Perhaps mild proximal colonic fecal stasis.
--- NOTE | 2017-09-18 14:25 | P.PN ---
Progress Note - Text Progress Note Date: 09/18/17 Interval History: Patient is a 57-year-old male who was to be discharged today and initially agreed with being discharged, and then return to my office and stated that he wanted to see another physician because he wasn't comfortable being with me alone. Patient stated that no one has helped him and went on to complain of his arm hurting, his being constipated, his back hurting and continuing to have suicidal thoughts that no one wanted him to talk about. Patient would not elaborate further on his suicidal thoughts, would not elaborate on where he was going to live after discharge stating that "it's taking care of". Mental Status: Appearance/Attitude: Patient is appropriately dressed, found in his room in bed, makes intermittent eye contact and is superficially cooperative Behavior: Patient does not exhibit any psychomotor agitation or retardation. Speech/Language: Patient's speech is spontaneous, normal volume and rhythm and he is coherent Thought Process: Patient is goal-directed, his responses are brief sentences with little elaboration there is no evidence of loose association or flight of ideas. Thought Content: Patient denies auditory or visual hallucinations and no delusions or paranoid ideation or elicited. Patient continues to complain of arm pain, being constipated and does not spontaneously report any psychiatric symptoms until he is asked direct questions and then he responds yes. Patient states that he continues to have suicidal ideation, but is unable to elaborate why he is having suicidal thoughts or how he is feeling. Patient states that no one has helped him with any of his problems while he is been here. Patient states that his appetite is good, he is sleeping about 5-6 hours a night. Suicidal/Homicidal Ideation: patient again stated that he was suicidal when we discussed a discharge, he denies current homicidal ideation Sensorium/Cognition: patient is alert and oriented to person, place, and time and his recent and remote memory are grossly intact. Mood/Affect: patient's mood remains indifferent and his affect is blunted Insight/Judgment: patient's insight and judgment are limited Assessment: patient had agreed that yesterday we would discharge him today, he stated to staff last evening that he was not suicidal and ready for discharge, he and I met we discussed his discharge plans, he was reluctant to state whether he was going to live in [place] or stay in the area and agreed that he was ready for discharge. Patient then returned to the office stating that he wanted to see another doctor because no one has helped him with any of his problems while he is been here, he feels uncomfortable being in the interview room alone with me and states that I have asked him to not talk about his suicidal thoughts. Patient continued to report that he has not been able to move his bowels even after using MiraLAX, Colace and milk of magnesia and and states that he is drinking plenty of water. Patient remains in his room in his bed is not attending any groups or activities. Patient is reluctant to discuss his discharge plans as to where he will stay either here or in [place]. Patient 's discharge plans were discussed in team treatment and it was arranged to have his intake for [facility] done tomorrow morning before his discharge, when patient was approached he declined to do this stating that he is going to live in [place]. Plan: patient continues on Seroquel 200 mg in the morning and 600 mg at night. Due to patient's continued reports of constipation he was given a Fleet's enema with minimal results and an abdominal flat plate was ordered which revealed no evidence of distended bowel, and feces only in the right colon. Patient was ordered MiraLAX twice a day and also received lactulose 1. Patient continues on doxycycline and culture returns presumed MRSA, infectious disease was contacted regarding the results and their recommendations. I reviewed the results of the abdominal flat plate with the patient, encourage the patient to drink plenty of water and get up and walk the hallways and discussed with him that we would be discharging him tomorrow. Patient was again encouraged to not touch or scratch his left axilla and if he did to wash his hands afterwards.
[2017-09-18] MEDS: ACETAMINOPHEN TAB 325 MG TAB PO PRN (23:04)
[2017-09-18] MEDS: hydrOXYzine PAMOATE 25 MG CAP PO PRN (23:05)
[2017-09-19 07:01] VITALS: BP 94/55; PULSE 64; TEMP 97.6
[2017-09-19] MEDS: POLYETHYLENE GLYCOL 3350 17 GM POWD.PACK PO SCH (08:20)
[2017-09-19] MEDS: NICOTINE 21MG/24HR PATCH TRANSDERM SCH (08:20)
[2017-09-19] MEDS: DOXYCYCLINE 50 MG CAP PO SCH (08:21)
[2017-09-19] MEDS: NAPROXEN 250 MG TAB PO SCH (08:21)
[2017-09-19] MEDS: QUEtiapine 200 MG TAB PO SCH (08:21)
--- NOTE | 2017-09-19 08:29 | P.DS ---
Providers Date of admission: 09/08/17 15:56 Expected date of discharge: 09/19/17 Attending physician: Elaine Hsu MD Consults: 09/08/17 17:13 Consult Physician Routine Consulting Provider: Kecia Morin Consult Reason/Comments: h&p Do you want consulting provider notified?: Already Contacted 09/14/17 12:05 Consult Physician Routine Consulting Provider: Tish Moon Consult Reason/Comments: eval axillary lymph nodes Do you want consulting provider notified?: Yes 09/16/17 09:07 Consult Physician Routine Consulting Provider: Sixto Alford Consult Reason/Comments: hidradenitis L axilla Do you want consulting provider notified?: Yes Primary care physician: Stated None Hospital Course: Discharge Diagnosis: Schizoaffective disorder by history depressed type, marijuana use disorder, cocaine use disorder Reason for Admission: Patient is a 57-year-old male who presented to the emergency room with thoughts of committing suicide by using a knife. When interviewed this morning the patient states that he's been feeling suicidal on and off for several days but is unable to state why. Patient states that he was on Seroquel, was receiving it in [place] and was seen there because he went there. Patient then stated that he was at [facility] in July for 28 days and when he was discharged there he was seen in [place]. Patient is a poor historian answering most questions "I don't know". Patient states that he also has homicidal thoughts on and off with no specific target and is vague in the reasons for having these thoughts. Patient is unable to tell me when he last took Seroquel or when he was last seen in outpatient treatment. Patient reports that he is feeling suicidal and depressed and states that he also is hearing voices that are just noise. Patient did not verbalize any symptoms spontaneously but would respond yes to any symptoms that I asked him about. Patient states he has not been sleeping and has been living with a friend. He states that he is marijuana and cocaine once since his discharge from [facility]. Patient was unable to give me any other history of his prior symptoms, when his first inpatient treatment began or what medications he has been on in the past. Mental status on Admission: Appearance/Attitude: Patient is dressed in a hospital gown, makes intermittent eye contact and is superficially cooperative Behavior: Patient does not display any psychomotor agitation or retardation. Speech/Language: Patient only responds to questions, normal tone of voice and rhythm and he is coherent Thought Process: Patient responds to most questions "I don't know" Thought Content: Patient states that he is hearing noises, denies visual hallucination and states that he is paranoid that people are out to get him but cannot elaborate. He states that he has not been sleeping well. Patient states that he has been living with a friend. Suicidal/Homicidal Ideation: Patient states he was having suicidal thoughts and thought of using a knife and was having homicidal ideation on and off with no specific target. He states that he continues to have both of these but has no plan Sensorium/Cognition: Patient is alert and oriented to person, place, and time and his recent and remote memory are grossly intact Mood/Affect: Patient's mood is guarded and his affect is blunted Insight/Judgment: Patient's insight and judgment are limited Hospital Course: Patient was admitted on a voluntary basis, routine precautions were ordered as well as group and activity therapy. Routine laboratory studies and a medical evaluation was obtained. Patient requested that he be restarted on Seroquel and it was titrated to a final dose of 200 mg in the morning and 600 mg at night. Patient initially was vague about his symptoms and will respond yes to any just no questions regarding what symptoms he had. Patient during his hospital stay had multiple somatic complaints one of lumps under his left axilla and he was seen by surgery and infectious disease, these were not felt to be in sizable. Per infectious disease the antibiotics were changed to doxycycline. Patient's preliminary culture was presumptive MRSA. Patient also had repeated complaints of constipation with little results from using milk of magnesia, MiraLAX, Colace and a fleets enema. An abdominal x-ray was obtained which did not show any evidence of bowel distention, constipation. Patient spent HIS time in bed in his room, only rarely attending for brief periods of time and afternoon group. Patient's appetite was good and he slept for about 5 hours each night. Patient remained superficially cooperative during interviews and when discharge was discussed with bring up that he was either suicidal and/ or homicidal with vague details about either. Patient continued to report hearing voices that would comment ago and currently mostly at night but was unable to state whether she was actually hearing people talk he would just say they were voices. Patient was discharged on 2 prior occasions and on each occasion after we discussed his discharge he would return to the office and stated he was suicidal and not ready for discharge and voiced somatic complaints of pain in his left arm and constipation and inability to move his bowels. Yesterday when discharge was discussed with the patient he then voiced that he would be ready today because his check would be available. Patient continued to remain vague and evasive regarding where he would follow-up and refused an intake at [facility] in [facility] that was to be performed here on the unit prior to his discharge. Patient continues to vacillate between saying that he would be living in the [facility] or living in this area. Patient and I discussed his need for follow-up regarding his left axilla and he continued to state that he could "take care of it". Patient was seen today and he stated that he was ready for discharge. Allergies peanut [Peanut Butter] Allergy (Verified 09/08/17 12:16) Unknown tomato Allergy (Verified 09/08/17 12:16) Unknown seafood Allergy (Uncoded 12/13/16 23:17) Unknown Laboratory Last Values WBC 6.5 k/uL (3.8-10.6) 09/08/17 15:57 RBC 4.88 m/uL (4.30-5.90) 09/08/17 15:57 Hgb 15.1 gm/dL (13.0-17.5) 09/08/17 15:57 Hct 44.8 % (39.0-53.0) 09/08/17 15:57 MCV 91.8 fL (80.0-100.0) 09/08/17 15:57 MCH 30.9 pg (25.0-35.0) 09/08/17 15:57 MCHC 33.6 g/dL (31.0-37.0) 09/08/17 15:57 RDW 13.6 % (11.5-15.5) 09/08/17 15:57 Plt Count 343 k/uL (150-450) 09/08/17 15:57 Neutrophils % 52 % 09/08/17 15:57 Lymphocytes % 36 % 09/08/17 15:57 Monocytes % 6 % 09/08/17 15:57 Eosinophils % 4 % 09/08/17 15:57 Basophils % 1 % 09/08/17 15:57 Neutrophils # 3.4 k/uL (1.3-7.7) 09/08/17 15:57 Lymphocytes # 2.3 k/uL (1.0-4.8) 09/08/17 15:57 Monocytes # 0.4 k/uL (0-1.0) 09/08/17 15:57 Eosinophils # 0.2 k/uL (0-0.7) 09/08/17 15:57 Basophils # 0.1 k/uL (0-0.2) 09/08/17 15:57 Sodium 139 mmol/L (137-145) 09/08/17 15:57 Potassium 4.4 mmol/L (3.5-5.1) 09/08/17 15:57 Chloride 107 mmol/L (98-107) 09/08/17 15:57 Carbon Dioxide 23 mmol/L (22-30) 09/08/17 15:57 Anion Gap 9 mmol/L 09/08/17 15:57 BUN 12 mg/dL (9-20) 09/08/17 15:57 Creatinine 0.86 mg/dL (0.66-1.25) 09/08/17 15:57 Est GFR (CKD-EPI)AfAm >90 (>60 ml/min/1.73 sqM) 09/08/17 15:57 Est GFR (CKD-EPI)NonAf >90 (>60 ml/min/1.73 sqM) 09/08/17 15:57 Glucose 134 mg/dL (74-99) H 09/08/17 15:57 Calcium 9.4 mg/dL (8.4-10.2) 09/08/17 15:57 Total Bilirubin 0.4 mg/dL (0.2-1.3) 09/08/17 15:57 AST 18 U/L (17-59) 09/08/17 15:57 ALT 28 U/L (21-72) 09/08/17 15:57 Alkaline Phosphatase 104 U/L (38-126) 09/08/17 15:57 Total Protein 6.9 g/dL (6.3-8.2) 09/08/17 15:57 Albumin 3.6 g/dL (3.5-5.0) 09/08/17 15:57 TSH 0.612 mIU/L (0.465-4.680) 09/08/17 15:57 Urine Color Yellow 09/10/17 11:49 Urine Appearance Clear (Clear) 09/10/17 11:49 Urine pH 5.5 (5.0-8.0) 09/10/17 11:49 Ur Specific [place] 1.022 (1.001-1.035) 09/10/17 11:49 Urine Protein Negative (Negative) 09/10/17 11:49 Urine Glucose (UA) Negative (Negative) 09/10/17 11:49 Urine Ketones Negative (Negative) 09/10/17 11:49 Urine Blood Negative (Negative) 09/10/17 11:49 Urine Nitrite Negative (Negative) 09/10/17 11:49 Urine Bilirubin Negative (Negative) 09/10/17 11:49 Urine Urobilinogen <2.0 mg/dL (<2.0) 09/10/17 11:49 Ur Leukocyte Esterase Negative (Negative) 09/10/17 11:49 Urine Opiates Screen Not Detected (NotDetected) 09/08/17 15:11 Ur Oxycodone Screen Not Detected (NotDetected) 09/08/17 15:11 Urine Methadone Screen Not Detected (NotDetected) 09/08/17 15:11 Ur Propoxyphene Screen Not Detected (NotDetected) 09/08/17 15:11 Ur Barbiturates Screen Not Detected (NotDetected) 09/08/17 15:11 U Tricyclic Antidepress Not Detected (NotDetected) 09/08/17 15:11 Ur Phencyclidine Scrn Not Detected (NotDetected) 09/08/17 15:11 Ur Amphetamines Screen Not Detected (NotDetected) 09/08/17 15:11 U Methamphetamines Scrn Not Detected (NotDetected) 09/08/17 15:11 U Benzodiazepines Scrn Not Detected (NotDetected) 09/08/17 15:11 Urine Cocaine Screen Detected (NotDetected) H 09/08/17 15:11 U Marijuana (THC) Screen Detected (NotDetected) H 09/08/17 15:11 Discharge Mental Status: Appearance/Attitude: Patient was appropriately dressed , made intermittent eye contact and was superficially cooperative. Behavior: Patient does not display any psychomotor agitation or retardation. Speech/Language: Patient's speech is spontaneous however he speaks in brief sentences, speech is of normal volume and rhythm and he is coherent. Thought Process: Patient is goal-directed, his responses to questions are brief and without elaboration, there is no evidence of loose association or flight of ideas. Thought Content: Patient denies auditory or visual hallucinations and no delusions or paranoid ideation were elicited. Patient today stated that he was ready for discharge and walked out of the interview room. Suicidal/Homicidal Ideation: Patient denies current suicidal or homicidal ideation Sensorium/Cognition: Patient is alert and oriented to person, place, and time and his recent and remote memory are grossly intact. Mood/Affect: Patient's mood remains indifferent and his affect is blunted Insight/Judgment: Patient's insight and judgment are fair Risk Assessment: Patient's risk for readmission is high secondary to the patient 's use of the hospital to meet his needs Discharge Plan: Patient will be discharged and he states to me today that he will be going to the [facility], patient has been given information for community mental health in the [facility] and states that he knows how to obtain medical care there. Patient will continue on Seroquel 200 mg in the morning and 600 mg at bedtime. Patient will also continue to take doxycycline 100 mg twice a day to complete the course of 14 day treatment. Patient is aware that the final culture results are not available and that these can be obtained from the hospital by whomever he sees for continued medical care. Patient was again advised to avoid any alcohol or drugs. Patient remains evasive regarding where he is going for follow-up and where he is going to live after discharge and is being given community mental health information for both [facility] and the [facility]. Patient Condition at Discharge: Stable Plan - Discharge Summary Discharge Rx Participant: No New Discharge Prescriptions: New Doxycycline [Vibramycin] 100 mg PO BID #28 cap QUEtiapine [SEROquel] 200 mg PO DAILY #14 tab QUEtiapine FUMARATE [SEROquel] 600 mg PO HS #28 tab Discharge Medication List Doxycycline [Vibramycin] 100 mg PO BID #28 cap 09/17/17 [Rx] QUEtiapine FUMARATE [SEROquel] 600 mg PO HS #28 tab 09/17/17 [Rx] QUEtiapine [SEROquel] 200 mg PO DAILY #14 tab 09/17/17 [Rx] Follow up Appointment(s)/Referral(s): intake,intake [Other] - 1-2 Days [facility] [Outside] - As Needed (If staying in the [facility] area please complete a walk-in intake appointment within 48 hours after being discharged from the hospital. ) [facility] [NON-STAFF] - As Needed Patient Instructions/Handouts: Depression (GEN), Suicide Prevention for Adults (GEN), Hidradenitis Suppurativa (GEN) Activity/Diet/Wound Care/Special Instructions: Keep your follow up appointments as scheduled. Continue medications as prescribed. No alcohol or street drugs. No guns or weapons. Crisis line if needed . Follow up regarding culture results. Pt declined referral to surgeon, states he has his own doctors and does not want a discharge apt. Discharge Disposition: HOME SELF-CARE
== END 2017-09-19 09:30 | disposition home or self-care (01) | DRG 885 ==
LOC: EC 11:39 → 3MHU 15:56
PROVIDERS: ADMIT Psychiatry & Neurology Psychiatry; ATTEND Psychiatry & Neurology Psychiatry
DX: F25.1 Schizoaffective disorder, depressive type (principal); R45.851 Suicidal ideations; R45.850 Homicidal ideations; B00.1 Herpesviral vesicular dermatitis; F12.90 Cannabis use, unspecified, uncomplicated; F14.90 Cocaine use, unspecified, uncomplicated; F17.200 Nicotine dependence, unspecified, uncomplicated; K21.9 Gastro-esophageal reflux disease without esophagitis; K59.00 Constipation, unspecified; L73.2 Hidradenitis suppurativa; F41.9 Anxiety disorder, unspecified; G43.909 Migraine, unspecified, not intractable, without status migrainosus; G89.29 Other chronic pain; M54.9 Dorsalgia, unspecified; Z91.19 Patient's noncompliance with other medical treatment and regimen; Z91.010 Allergy to peanuts; Z91.013 Allergy to seafood; Z91.018 Allergy to other foods; Z86.14 Personal history of Methicillin resistant Staphylococcus aureus infection
CPT/HCPCS: 74018; 80048; 80053; 80306; 81003; 82075; 84443; 85025; 87070; 87077; 87186; 87205; 99285

== ENCOUNTER 2017-09-20 18:13 | Inpatient (IN) | payer MEDICAID, OTHER ==
--- NOTE | 2017-09-20 18:55 | ED ---
General Adult HPI - General Chief complaint: Psychiatric Symptoms Stated complaint: sucidal Time Seen by Provider: 09/20/17 18:20 Source: patient, RN notes reviewed, old records reviewed Mode of arrival: ambulatory Limitations: no limitations - History of Present Illness Initial comments: 57 yo male presents for evaluation of depression, auditory hallucination and suicidal ideation. Patient was recently discharged from this facility with similar symptoms. He states he has been planning to cut himself with a knife, he has not attempted suicide. He states that he hears voices that tell him to hurt himself. He does have past history of mental illness. He has been admitted for psychiatric reasons multiple times in the past. Denies any physical complaints. Denies any suicide attempt. - Related Data Previous Rx's Medication Instructions Recorded Doxycycline [Vibramycin] 100 mg PO BID #28 cap 09/17/17 QUEtiapine FUMARATE [SEROquel] 600 mg PO HS #28 tab 09/17/17 QUEtiapine [SEROquel] 200 mg PO DAILY #14 tab 09/17/17 Allergies Allergy/AdvReac Type Severity Reaction Status Date / Time peanut [Peanut Butter] Allergy Unknown Verified 09/20/17 18:44 tomato Allergy Unknown Verified 09/20/17 18:44 seafood Allergy Unknown Uncoded 09/20/17 18:18 Review of Systems ROS Statement: Those systems with pertinent positive or pertinent negative responses have been documented in the HPI. ROS Other: All systems not noted in ROS Statement are negative. Past Medical History Past Medical History: GERD/Reflux Additional Past Medical History / Comment(s): chronic back pain, migraines, constipation. History of Any Multi-Drug Resistant Organisms: MRSA Date of last positivie culture/infection: 09/16/17 MDRO Source:: AXILLA Past Surgical History: Hernia Repair Additional Past Surgical History / Comment(s): Right inguinal hernia repair Past Anesthesia/Blood Transfusion Reactions: No Reported Reaction Past Psychological History: Anxiety, Bipolar, Depression, Schizophrenia Smoking Status: Current every day smoker Past Alcohol Use History: None Reported Past Drug Use History: Cocaine, Marijuana - Past Family History Father Additional Family Medical History / Comment(s): Father at age 73 from a motor vehicle accident. Mother Additional Family Medical History / Comment(s): Mom at age 56 from breast cancer with brain tumor and she also had mental health issues. Sister(s) Additional Family Medical History / Comment(s): Patient has 2 sisters with no major medical problems. Brother(s) Additional Family Medical History / Comment(s): Patient has 1 brother that was killed. Patient did not give details. Son(s) Additional Family Medical History / Comment(s): He has one son with no major medical problems. General Exam Limitations: no limitations General appearance: alert, in no apparent distress Head exam: Present: atraumatic, normocephalic Eye exam: Present: normal appearance, PERRL ENT exam: Present: normal exam Neck exam: Present: normal inspection. Absent: tenderness, meningismus Respiratory exam: Present: normal lung sounds bilaterally. Absent: respiratory distress Cardiovascular Exam: Present: regular rate, normal rhythm GI/Abdominal exam: Present: soft. Absent: distended, tenderness Extremities exam: Present: normal inspection, full ROM. Absent: tenderness Neurological exam: Present: alert, oriented X3 Psychiatric exam: Present: depressed, flat affect, suicidal ideation Skin exam: Present: warm, dry, intact. Absent: cyanosis, diaphoretic Course Vital Signs 09/20/17 18:16 Temperature 98.6 F Pulse Rate 86 Respiratory 20 Rate Blood Pressure 133/85 O2 Sat by Pulse 100 Oximetry - Reevaluation(s) Reevaluation #1: 09/20/17 18:55 Patient is medically cleared awaiting EPS evaluation. Medical Decision Making - Medical Decision Making 57-year-old presenting with depression, auditory hallucination and suicidal ideation. He was evaluated by EPS, he will be admitted for further psychiatric care. Disposition Clinical Impression: Suicidal ideation, Depression, Continuous auditory hallucinations Disposition: ADMITTED IP TO THIS [facility] Condition: Stable Referrals: None,Stated [Primary Care Provider] - 1-2 days Decision to Admit Reason: Admit from EC Decision Date: 09/20/17 Decision Time: 20:18
[2017-09-20] MEDS ORDERED: ACETAMINOPHEN TAB 325 MG TAB PO PRN (21:43)
[2017-09-20] MEDS ORDERED: MAGNESIUM HYDROXIDE 2,400 MG/10 ML CUP PO PRN (21:43)
[2017-09-20] MEDS ORDERED: MAG HYDROX/AL HYDROX/SIMETH 30 ML CUP PO PRN (21:43)
[2017-09-20] MEDS ORDERED: LORazepam 1 MG TAB PO PRN (21:43)
--- NOTE | 2017-09-20 22:43 | P.MDCNMH ---
History of Present Illness H&P Date: 09/20/17 Chief Complaint: suicidal ideation 56-year-old -[place] gentleman GERD, prior history of cocaine use, history of significant EtOH use, nicotine dependence, who was just discharged from the hospital/psychiatry unit a couple of days ago presented to the emergency department because of worsening suicidal thoughts. He said that he did not believe he was ready for discharge last time but psychiatrist discharge him anyways. He has been hearing voices telling him to kill himself by cutting his wrist over the last several days. Patient reported that he has been more depressed lately. He also has been having pain and swelling in the left armpit. Did have some chills but no fevers. No shortness of breath, nausea or vomiting. Review of Systems 12 point review of system was performed, negative except HPI Past Medical History Past Medical History: GERD/Reflux Additional Past Medical History / Comment(s): chronic back pain, migraines, constipation. History of Any Multi-Drug Resistant Organisms: MRSA Date of last positivie culture/infection: 09/16/17 MDRO Source:: AXILLA Past Surgical History: Hernia Repair Additional Past Surgical History / Comment(s): Right inguinal hernia repair Past Anesthesia/Blood Transfusion Reactions: No Reported Reaction Past Psychological History: Anxiety, Bipolar, Depression, Schizophrenia Smoking Status: Current every day smoker Past Alcohol Use History: None Reported Past Drug Use History: Cocaine, Marijuana - Past Family History Father Additional Family Medical History / Comment(s): Father at age 73 from a motor vehicle accident. Mother Additional Family Medical History / Comment(s): Mom at age 56 from breast cancer with brain tumor and she also had mental health issues. Sister(s) Additional Family Medical History / Comment(s): Patient has 2 sisters with no major medical problems. Brother(s) Additional Family Medical History / Comment(s): Patient has 1 brother that was killed. Patient did not give details. Son(s) Additional Family Medical History / Comment(s): He has one son with no major medical problems. Medications and Allergies Home Medications Medication Instructions Recorded Confirmed Type Doxycycline [Vibramycin] 100 mg PO BID #28 cap 09/17/17 09/20/17 Rx QUEtiapine FUMARATE [SEROquel] 600 mg PO HS #28 tab 09/17/17 09/20/17 Rx QUEtiapine [SEROquel] 200 mg PO DAILY #14 tab 09/17/17 09/20/17 Rx Allergies Allergy/AdvReac Type Severity Reaction Status Date / Time peanut [Peanut Butter] Allergy Unknown Verified 09/20/17 18:44 tomato Allergy Unknown Verified 09/20/17 18:44 seafood Allergy Unknown Uncoded 09/20/17 18:18 Physical Exam Vitals: Vital Signs Temp Pulse Resp BP Pulse Ox 09/20/17 21:18 97.8 F 77 14 142/82 98 09/20/17 18:16 98.6 F 86 20 133/85 100 Intake and Output 09/20/17 09/20/17 09/20/17 06:59 14:59 22:59 Other: Weight 90.718 kg Constitutional: No acute distress, conversant, pleasant Eyes:Anicteric sclerae, moist conjunctiva, no lid-lag, PERRLA, ENMT: Oropharynx clear, no erythema, exudates Neck: Supple, FROM, no masses, or JVD, No carotid bruits, No thyromegaly Lungs: Clear to auscultation, Clear to percussion, Normal respiratory effort, no accessory muscle use Cardiovascular: Heart regular in rate and rhythm, No murmurs, gallops, or rubs, No peripheral edema Abdominal: Soft, Nontender, no guarding, rebound or rigidity, Normoactive bowel sounds, No hepatomegaly, No splenomegaly, No palpable mass Skin: Left arm multiple swollen tender nodules, Normal temperature, tone, texture, turgor, no induration, No subcutaneous nodules, No rash, lesions, No ulcers Extremities: No digital cyanosis, No clubbing, Pedal pulses intact and symmetrical, Radial pulses intact and symmetrical, No calf tenderness Psychiatric: Alert and oriented to person, place and time Neuro: Muscles Strength 5/5 in all 4 extremities, Sensation to light touch grossly present throughout, Cranial nerves II-XII grossly intact, no focal sensory deficits Cranial Nerve Examination - Cranial Nerves Cranial Nerve II- Optic: Intact Cranial Nerve III- Oculomotor: Intact Cranial Nerve IV- Trochlear: Intact Cranial Nerve V- Trigeminal: Intact Cranial Nerve - Abducens: Intact Cranial Nerve VII- Facial: Intact Cranial Nerve VIII- Auditory: Intact Cranial Nerve IX- Glossopharyngeal: Intact Cranial Nerve X- Vagus: Intact Cranial Nerve XI- Accessory: Intact Cranial Nerve XII- Hypoglossal: Intact Assessment and Plan Plan: #1 Suicidal ideations/bipolar disorder/schizophrenia: Management per psychiatry #2 left armpit hidradenitis: Seen by Dr. Alford last time Continue doxycycline 100 mg by mouth twice a day #3 Chronic back pain: Tylenol when necessary #4 Health maintenance: Labs CBC, CMP reviewed
[2017-09-20 23:12] VITALS: RESP 16; BMI 32.5
[2017-09-20] MEDS ORDERED: QUEtiapine 200 MG TAB PO ONE (23:30)
[2017-09-20] MEDS ORDERED: DOXYCYCLINE 50 MG CAP PO ONE (23:30)
[2017-09-21 08:51] LABS: Basophils % (A) 0 %; Eosinophils # (A) 0.2 k/uL (0-0.7); Eosinophils % (A) 4 %; HCT 48.1 % (39.0-53.0); HGB 15.3 gm/dL (13.0-17.5); Lymphocytes # (A) 2.7 k/uL (1.0-4.8); Lymphocytes % (A) 45 %; MCH 29.6 pg (25.0-35.0); MCHC 31.7 g/dL (31.0-37.0); MCV 93.2 fL (80.0-100.0); Mean Platelet Volume 7.7; Monocytes # (A) 0.5 k/uL (0-1.0); Monocytes % (A) 8 %; Neutrophils # (A) 2.5 k/uL (1.3-7.7); Neutrophils % (A) 42 %; Platelet Count 372 k/uL (150-450); RBC 5.16 m/uL (4.30-5.90); RDW 13.7 % (11.5-15.5); WBC 6.1 k/uL (3.8-10.6)
[2017-09-21] MEDS: NICOTINE 14MG/24HR PATCH TRANSDERM SCH (09:00)
[2017-09-21] MEDS: QUEtiapine 200 MG TAB PO SCH ×2 (09:01→20:34)
[2017-09-21] MEDS: DOXYCYCLINE 50 MG CAP PO SCH ×2 (09:01→20:34)
[2017-09-21 09:04] LABS: ALT 37 U/L (21-72); AST 98 U/L (17-59); Albumin 3.9 g/dL (3.5-5.0); Alkaline Phosphatase 122 U/L (38-126); Anion Gap 14 mmol/L; Blood Urea Nitrogen 16 mg/dL (9-20); Calcium 9.6 mg/dL (8.4-10.2); Carbon Dioxide 23 mmol/L (22-30); Chloride 105 mmol/L (98-107); Cholesterol 178 mg/dL (<200); Glucose 151 mg/dL (74-99); HDL Cholesterol 53 mg/dL (40-60); LDL Cholesterol,Calculated 104 mg/dL (0-99); Potassium 4.1 mmol/L (3.5-5.1); Sodium 142 mmol/L (137-145); Total Bilirubin 0.5 mg/dL (0.2-1.3); Total Protein 7.2 g/dL (6.3-8.2); Triglycerides 106 mg/dL (<150)
--- NOTE | 2017-09-21 17:17 | P.HP ---
Psychiatric H&P - . H&P Date: 09/21/17 History & Physical: Allergies Allergy/AdvReac Type Severity Reaction Status Date / Time peanut [Peanut Butter] Allergy Unknown Verified 09/20/17 22:48 tomato Allergy Unknown Verified 09/20/17 22:48 seafood Allergy Unknown Uncoded 09/20/17 22:48 Vital Signs Temp 97.8 F 09/20/17 22:58 Pulse 75 09/20/17 22:58 Resp 16 09/20/17 22:58 BP 115/72 09/20/17 22:58 Pulse Ox 98 09/20/17 21:18 Intake & Output 09/20/17 09/21/17 09/21/17 18:59 06:59 18:59 Weight 90.718 kg 94.3 kg Laboratory Last Values WBC 6.1 k/uL (3.8-10.6) 09/21/17 08:25 RBC 5.16 m/uL (4.30-5.90) 09/21/17 08:25 Hgb 15.3 gm/dL (13.0-17.5) 09/21/17 08:25 Hct 48.1 % (39.0-53.0) 09/21/17 08:25 MCV 93.2 fL (80.0-100.0) 09/21/17 08:25 MCH 29.6 pg (25.0-35.0) 09/21/17 08:25 MCHC 31.7 g/dL (31.0-37.0) 09/21/17 08:25 RDW 13.7 % (11.5-15.5) 09/21/17 08:25 Plt Count 372 k/uL (150-450) 09/21/17 08:25 Neutrophils % 42 % 09/21/17 08:25 Lymphocytes % 45 % 09/21/17 08:25 Monocytes % 8 % 09/21/17 08:25 Eosinophils % 4 % 09/21/17 08:25 Basophils % 0 % 09/21/17 08:25 Neutrophils # 2.5 k/uL (1.3-7.7) 09/21/17 08:25 Lymphocytes # 2.7 k/uL (1.0-4.8) 09/21/17 08:25 Monocytes # 0.5 k/uL (0-1.0) 09/21/17 08:25 Eosinophils # 0.2 k/uL (0-0.7) 09/21/17 08:25 Basophils # 0.0 k/uL (0-0.2) 09/21/17 08:25 Sodium 142 mmol/L (137-145) 09/21/17 08:25 Potassium 4.1 mmol/L (3.5-5.1) 09/21/17 08:25 Chloride 105 mmol/L (98-107) 09/21/17 08:25 Carbon Dioxide 23 mmol/L (22-30) 09/21/17 08:25 Anion Gap 14 mmol/L 09/21/17 08:25 BUN 16 mg/dL (9-20) 09/21/17 08:25 Creatinine 0.84 mg/dL (0.66-1.25) 09/21/17 08:25 Est GFR (CKD-EPI)AfAm >90 (>60 ml/min/1.73 sqM) 09/21/17 08:25 Est GFR (CKD-EPI)NonAf >90 (>60 ml/min/1.73 sqM) 09/21/17 08:25 Glucose 151 mg/dL (74-99) H 09/21/17 08:25 Calcium 9.6 mg/dL (8.4-10.2) 09/21/17 08:25 Total Bilirubin 0.5 mg/dL (0.2-1.3) 09/21/17 08:25 AST 98 U/L (17-59) H 09/21/17 08:25 ALT 37 U/L (21-72) 09/21/17 08:25 Alkaline Phosphatase 122 U/L (38-126) 09/21/17 08:25 Total Protein 7.2 g/dL (6.3-8.2) 09/21/17 08:25 Albumin 3.9 g/dL (3.5-5.0) 09/21/17 08:25 Triglycerides 106 mg/dL (<150) 09/21/17 08:25 Cholesterol 178 mg/dL (<200) 09/21/17 08:25 LDL Cholesterol, Calc 104 mg/dL (0-99) H 09/21/17 08:25 HDL Cholesterol 53 mg/dL (40-60) 09/21/17 08:25 09/21/17 16:42 Patient is 57 year old male. He is single. He is currently liviing with his friends. His source of income is Social security disability. Cheif complaint Hearing voices Felling down with suicidal thoughts Visual halluciantions History of presenting illness Patient reports being discharged from the inpatient mental health unit two days ago. He says he was not ready for the discharge. He reports hearing voices telling him bad things. He says those voices never said good things. He reports feeling down for many years. He currently reports feeling hopeless, worthless and guilty about his past. He reports feeling amotivated. He reports having recurrent thoughts of suicide. He reports having a plan to cut his wrist with a knife. He says he is tired and claims living is harder than dying. He reports to have seen many in his family beginning with the of his mother in 1996, his nephew in 1998, brother in 2005 and his father in 2009. He reports visual hallucinations of people peeping in on him. He reports feeling paranoid of something might happen to him. Past psychiatric treatment history Patient reports being started on psychiatric medications following his first hopitalization around the age of 41. He reports being diagnosed with schizophrenia, bipolar disorder. He reports [facility] hospitla[facility]. His last hospitlaization was at [facility] in august 2017. He says most of his hospitalizations are due to suicidal ideations, depression, hearing voices and paranoia. He reports recieving out patient treatments through community mental health clinics. He reports being treated with ativan and seroquel. He claims ativan helps him. Substance use history Patient reports use of marijuana, alcohol and cocaine from his twenties. He says his last use of marijuana was 2 weeks ago, he reprots to have smoked 3 to 4 blunts. His last use of alcohol was 2 weeks ago, claims to have drank fifth and half of vodka. He reports daily use of cocaine and his last use was few weeks ago. He reports to have recived rehab treatments through [facility]. He claims to have completed rehab program at [facility] two months ago and lived in a three quarter house. Following his discharge he want to go [facility]. Medical history Reports infection in the arm pit, possible MRSA and is receiving antibiotics for the same currently. GERD, chronic back pain. Legal problems None reported. Family history Denies family psychiatric treatment history Social history Reports being born in [place], [place]. Raised by his mother. Denies history of abuse. He reports having two sisters and two brothers. He says one of his siters in recently doagnosed with cancer and one of his brother . He reports to have completed 12 th grade. He claims to have worked in [employer], last job was 5 years ago. Mental status exam Patient is 57 year old male. He appeared his stated age. He was dressed in hospital attire. He maintains good eye contact. No psychomotor agitation or retardation noted. His speech and thought process were goal directed. His mood is reported as sad and affect constricted. Reports auditory, visual halluciantions. Reports paranoid delusions. He reports recurrent suicidal ideations. No homicidal ideations. He is alert and oriented to time place and person. has poor insight and judgment. Assessment Schizoaffective disorder depressed type Cannabis use moderate type Alcohol use moderate type Cocaine use moderate type Plan Patient was admitted voluntarily to the mental health unit through ER. He will continue seroquel Will start him on zoloft 25mg po qday, dose to be adjusted according to his response and tolerability. Encourage participation in unit groups therapies. History and physical by medicine Individual treatment plan deveopment and discharge plan Routine labs. Monitor for symptoms and progress. 09/21/17 17:04
[2017-09-21 19:50] LABS: Hemoglobin A1C 5.7 % (4.0-6.0)
[2017-09-22] MEDS: DOXYCYCLINE 50 MG CAP PO SCH ×2 (08:49→20:30)
[2017-09-22] MEDS: QUEtiapine 200 MG TAB PO SCH ×3 (08:50→20:30)
[2017-09-22] MEDS: NICOTINE 14MG/24HR PATCH TRANSDERM SCH (08:50)
[2017-09-22] MEDS ORDERED: SERTRALINE 25 MG TAB PO SCH (09:00)
[2017-09-22] MEDS ORDERED: SERTRALINE 25 MG TAB PO STA (09:56)
[2017-09-22] MEDS ORDERED: POLYETHYLENE GLYCOL 3350 17 GM POWD.PACK PO PRN (09:57)
--- NOTE | 2017-09-22 12:43 | P.PN ---
Progress Note - Text Progress Note Date: 09/22/17 Interval History: Patient is a 57-year-old male who was admitted a day after discharge. Patient states that he wasn't ready for discharge, patient states that he is hearing voices and is suicidal. He states he doesn't feel good but is unable to elaborate further than the face hearing voices and feeling suicidal. He states he stayed with a friend after discharge and did not fill his prescriptions at the pharmacy. Patient states that he continues to hear voices but is unable to tell me what they're saying and states he continues to not feel well. He again began complaining of constipation. Patient states he didn't use any drugs or alcohol after his discharge. Patient verbalized little else, did not spontaneously discuss any other symptoms his only description was that he was not feeling good. Mental Status: Appearance/Attitude: Patient is dressed in a hospital gown, makes intermittent eye contact and is superficially cooperative Behavior: Patient does not exhibit any psychomotor agitation or retardation. Speech/Language: Patient's speech is spontaneous, normal volume and rhythm and he is coherent Thought Process: Patient is goal-directed although his responses to questions are brief with little aberration, no evidence of loose association or flight of ideas Thought Content: Patient states that he is hearing voices but cannot elaborate further, denies visual hallucinations and no delusions or paranoid ideation were elicited. Patient states that he is not feeling good, stated that he wasn' t ready for discharge and needs to have his medications adjusted. Suicidal/Homicidal Ideation: Patient reports he has suicidal ideation but could not elaborate on a plan at this time and no homicidal ideation at this time Sensorium/Cognition: Patient is alert and oriented to person, place, and time and his recent and remote memory are grossly intact Mood/Affect: Patient's mood is depressed he states and his affect is blunted Insight/Judgment: Patient's insight and judgment are fair Assessment: Patient was readmitted stating that he wasn't ready for discharge and states that he had suicidal thoughts on the outside and had a knife in his hand with friends at [employer] removed it however this could not be confirmed. Patient also told me that he did not become his prescriptions when he was discharged from the hospital. Patient states that he was staying with a friend the one night that he was out of the hospital. Patient states that he once his Seroquel increased and his Zoloft increased because he still hearing voices and feeling depressed. Patient again complained of feeling constipated but when questioned had moved his bowels over the weekend. Patient has not been attending groups or activities. Plan: Will increase patient's Seroquel to 200 mg twice a day and 600 mg at bedtime secondary to his psychotic symptoms, we will increase Zoloft to 50 mg daily for his complaints of depression. Patient was ordered MiraLAX daily on an as-needed basis for his complaints of constipation and I again discussed with the patient that his most recent abdominal x-ray revealed no evidence of that. Patient and I discussed that he will need to make a concrete discharge plans, have an intake at [facility] before his discharge. Patient states that he also contacted [facility] for inpatient rehab.
[2017-09-22 14:42] LABS: Appearance,Urine Clear (Clear); Bilirubin,Urine Negative (Negative); Blood,Urine Negative (Negative); Color,Urine Yellow; Glucose,Urine (UA) Negative (Negative); Ketones,Urine Negative (Negative); Leukocyte Esterase,Urine Small (Negative); Mucus,Urine Rare /hpf; Nitrite,Urine Negative (Negative); PH, Urine 5.5 (5.0-8.0); Protein,Urine Trace (Negative); RBC,Urine 1 /hpf (0-5); Specific Gravity,Urine 1.023 (1.001-1.035); Urobilinogen,Urine <2.0 mg/dL (<2.0); WBC,Urine 1 /hpf (0-5)
[2017-09-22 14:47] LABS: Amphetamine Screen,Urine Not Detected (NotDetected); Barbiturate Screen,Urine Not Detected (NotDetected); Benzodiazepines Screen,Urine Not Detected (NotDetected); Cocaine Screen,Urine Detected (NotDetected); Methadone Screen, Urine Not Detected (NotDetected); Opiate Screen,Urine Not Detected (NotDetected); Oxycodone Screen, Urine Not Detected (NotDetected); Phencyclidine Screen,Urine Not Detected (NotDetected); Tricyclic Antidepressant,Urine Detected (NotDetected); Urn Cannabinoid Scrn Detected (NotDetected)
[2017-09-23 05:46] VITALS: BP 125/86; PULSE 93; TEMP 98.1
[2017-09-23] MEDS: NICOTINE 14MG/24HR PATCH TRANSDERM SCH (08:33)
[2017-09-23] MEDS: QUEtiapine 200 MG TAB PO SCH (08:33)
[2017-09-23] MEDS: DOXYCYCLINE 50 MG CAP PO SCH (08:33)
[2017-09-23] MEDS ORDERED: SERTRALINE 50 MG TAB PO SCH (09:00)
--- NOTE | 2017-09-23 11:27 | P.DS ---
Providers Date of admission: 09/20/17 20:52 Expected date of discharge: 09/23/17 Attending physician: Elaine Hsu MD Consults: 09/20/17 21:43 Consult Physician Routine Consulting Provider: Kecia Morin Consult Reason/Comments: medical management Do you want consulting provider notified?: Already Contacted Primary care physician: Stated None Hospital Course: Discharge Diagnosis: Schizoaffective disorder, depressed type by history, marijuana use disorder, cocaine use disorder Reason for Admission: Patient is a 57-year-old male who was discharged from the inpatient psychiatric unit on September 19 and presented to the emergency room on September 20 reporting that he was not ready for discharge, hearing voices telling him bad things. He reported feeling down for many years and having recurrent thoughts of suicide. Patient in the emergency room stated that he had a plan to cut his wrist with a knife and stated that people took it away from him at a latter day that he was unable to tell anyone what latter day which people. Patient also reported visual hallucinations of people peeping in on them as well as eating paranoid that something might happen to him. Hospital Course: Patient was admitted on a voluntary basis, routine observation was ordered as well as group and activity therapy. Routine laboratory studies and a medical consultation was obtained. Patient was continued on his Seroquel at 200 mg in the morning and 600 mg at bedtime and was begun on Zoloft 25 mg daily. Patient did not attend groups or activities while in the inpatient unit. Patient's Seroquel was increased to 200 mg twice a day and 600 mg at bedtime and Zoloft was increased to 50 mg daily. Patient when initially seen continued to complain of constipation which I discussed with him was not a problem as he had just moved his bowels over the weekend. Patient also had an episode of complaints of chest pain with a normal EKG and a negative troponin level. Patient continued to complain of his leg hurting his neck hurting and his head hurting. Patient also reported that he had not picked up his medications on discharge because he did not know where they were located or what pharmacy that had been sent 2. Patient states when he was discharged he did use cocaine and marijuana. Patient continued to report that he was suicidal with no plan and reported, each time discharge was mentioned the patient again discussed that he was feeling suicidal. Patient remained vague about his symptoms and could not elaborate on any of them. Patient continued to report that he was not ready for discharge and was suicidal because of "hard living". Patient contacted [facility] for an intake appointment and an appointment was reported to have been given to him on October 06. During team meeting it was discovered that the patient had presented to [facility] several hours before his coming to the emergency room on the where he had been seen by mobile crisis unit and not approved for admission. Patient came here and was admitted from the emergency room, when questioned with this he stated he doesn't remember going to another emergency room. Patient states he is not attending groups because he doesn't feel good, and he describes multiple somatic complaints. Patient during his last hospitalization attended in infrequent number of groups in the afternoon for brief periods of time and spent the rest of his time in bed. Patient has been sleeping at night and has been eating well. Patient was seen by [facility] today for an intake appointment and they have opened his case and has been assigned a supervisor case loading. Patient will be discharged, as continued hospital stay will be of no benefit as the patient does not participate in groups or activities, whenever discharges discussed patient then verbalizes suicidal ideation, otherwise the patient is vague and not elaborative about his symptoms. Patient's medications have been adjusted and he reports no benefit. Allergies peanut [Peanut Butter] Allergy (Verified 09/20/17 22:48) Unknown tomato Allergy (Verified 09/20/17 22:48) Unknown seafood Allergy (Uncoded 09/20/17 22:48) Unknown Laboratory Last Values WBC 6.1 k/uL (3.8-10.6) 09/21/17 08:25 RBC 5.16 m/uL (4.30-5.90) 09/21/17 08:25 Hgb 15.3 gm/dL (13.0-17.5) 09/21/17 08:25 Hct 48.1 % (39.0-53.0) 09/21/17 08:25 MCV 93.2 fL (80.0-100.0) 09/21/17 08:25 MCH 29.6 pg (25.0-35.0) 09/21/17 08:25 MCHC 31.7 g/dL (31.0-37.0) 09/21/17 08:25 RDW 13.7 % (11.5-15.5) 09/21/17 08:25 Plt Count 372 k/uL (150-450) 09/21/17 08:25 Neutrophils % 42 % 09/21/17 08:25 Lymphocytes % 45 % 09/21/17 08:25 Monocytes % 8 % 09/21/17 08:25 Eosinophils % 4 % 09/21/17 08:25 Basophils % 0 % 09/21/17 08:25 Neutrophils # 2.5 k/uL (1.3-7.7) 09/21/17 08:25 Lymphocytes # 2.7 k/uL (1.0-4.8) 09/21/17 08:25 Monocytes # 0.5 k/uL (0-1.0) 09/21/17 08:25 Eosinophils # 0.2 k/uL (0-0.7) 09/21/17 08:25 Basophils # 0.0 k/uL (0-0.2) 09/21/17 08:25 Sodium 142 mmol/L (137-145) 09/21/17 08:25 Potassium 4.1 mmol/L (3.5-5.1) 09/21/17 08:25 Chloride 105 mmol/L (98-107) 09/21/17 08:25 Carbon Dioxide 23 mmol/L (22-30) 09/21/17 08:25 Anion Gap 14 mmol/L 09/21/17 08:25 BUN 16 mg/dL (9-20) 09/21/17 08:25 Creatinine 0.84 mg/dL (0.66-1.25) 09/21/17 08:25 Est GFR (CKD-EPI)AfAm >90 (>60 ml/min/1.73 sqM) 09/21/17 08:25 Est GFR (CKD-EPI)NonAf >90 (>60 ml/min/1.73 sqM) 09/21/17 08:25 Glucose 151 mg/dL (74-99) H 09/21/17 08:[address] Glu mg/dL 117 09/21/17 08:25 Hemoglobin A1c 5.7 % (4.0-6.0) 09/21/17 08:25 Calcium 9.6 mg/dL (8.4-10.2) 09/21/17 08:25 Total Bilirubin 0.5 mg/dL (0.2-1.3) 09/21/17 08:25 AST 98 U/L (17-59) H 09/21/17 08:25 ALT 37 U/L (21-72) 09/21/17 08:25 Alkaline Phosphatase 122 U/L (38-126) 09/21/17 08:25 Troponin I <0.012 ng/mL (0.000-0.034) 09/23/17 08:14 Total Protein 7.2 g/dL (6.3-8.2) 09/21/17 08:25 Albumin 3.9 g/dL (3.5-5.0) 09/21/17 08:25 Triglycerides 106 mg/dL (<150) 09/21/17 08:25 Cholesterol 178 mg/dL (<200) 09/21/17 08:25 LDL Cholesterol, Calc 104 mg/dL (0-99) H 09/21/17 08:25 HDL Cholesterol 53 mg/dL (40-60) 09/21/17 08:25 Urine Color Yellow 09/22/17 14:22 Urine Appearance Clear (Clear) 09/22/17 14:22 Urine pH 5.5 (5.0-8.0) 09/22/17 14:22 Ur Specific [place] 1.023 (1.001-1.035) 09/22/17 14:22 Urine Protein Trace (Negative) H 09/22/17 14:22 Urine Glucose (UA) Negative (Negative) 09/22/17 14:22 Urine Ketones Negative (Negative) 09/22/17 14:22 Urine Blood Negative (Negative) 09/22/17 14:22 Urine Nitrite Negative (Negative) 09/22/17 14:22 Urine Bilirubin Negative (Negative) 09/22/17 14:22 Urine Urobilinogen <2.0 mg/dL (<2.0) 09/22/17 14:22 Ur Leukocyte Esterase Small (Negative) H 09/22/17 14:22 Urine RBC 1 /hpf (0-5) 09/22/17 14:22 Urine WBC 1 /hpf (0-5) 09/22/17 14:22 Urine Mucus Rare /hpf (None) H 09/22/17 14:22 Urine Opiates Screen Not Detected (NotDetected) 09/22/17 14:22 Ur Oxycodone Screen Not Detected (NotDetected) 09/22/17 14:22 Urine Methadone Screen Not Detected (NotDetected) 09/22/17 14:22 Ur Propoxyphene Screen Not Detected (NotDetected) 09/22/17 14:22 Ur Barbiturates Screen Not Detected (NotDetected) 09/22/17 14:22 U Tricyclic Antidepress Detected (NotDetected) H 09/22/17 14:22 Ur Phencyclidine Scrn Not Detected (NotDetected) 09/22/17 14:22 Ur Amphetamines Screen Not Detected (NotDetected) 09/22/17 14:22 U Methamphetamines Scrn Not Detected (NotDetected) 09/22/17 14:22 U Benzodiazepines Scrn Not Detected (NotDetected) 09/22/17 14:22 Urine Cocaine Screen Detected (NotDetected) H 09/22/17 14:22 U Marijuana (THC) Screen Detected (NotDetected) H 09/22/17 14:22 Discharge Mental Status: Appearance/Attitude: Patient is dressed in a hospital gown, makes good eye contact and is superficially cooperative. Behavior: Patient does not display any psychomotor agitation or retardation, patient does not appear to be responding to internal stimuli. Speech/Language: Patient is spontaneous his speech is of normal volume and rhythm and he is coherent. Thought Process: Patient is goal-directed although his responses are brief and non-elaborative, no evidence of loose association or flight of ideas Thought Content: Patient today denied auditory or visual hallucinations and no delusions or paranoid ideation or elicited. Patient states that he is not feeling good and reported numerous somatic complaints of pain in his leg, his neck and his head. Patient complained of chest pain last night and the workup including an EKG and troponin revealed no abnormalities. Patient reported today that he had suicidal thoughts due to "hard living". Patient reported that he did not garbage pick up man his prescriptions on discharge because he did not know where they were located. Patient states he does not attend groups because he does not feel good. Suicidal/Homicidal Ideation: Patient today reported suicidal thoughts with no plan due to his "hard living" and denied any current homicidal ideation Sensorium/Cognition: Patient is alert and oriented to person, place, and time and his recent and remote memory are grossly intact. Mood/Affect: patient states that he doesn't feel good but is unable to elaborate and his affect is blunted Insight/Judgment: patient's insight and judgment are fair. Risk Assessment: patient's risk for readmission is high secondary to his not wanting to leave the hospital, seeking medical care and hospitalization; his risk for suicide is moderate due to his lack of follow-up and compliance with medication on discharge in use of drugs Discharge Plan: patient will be discharged due to a lack of continued benefit from hospitalization, patient was recently in the inpatient unit from September 08 to September 19 with limited participation in groups or activities, vague discharge plans patient was readmitted on September 20 after having gone to another emergency room and been denied admission and was readmitted here. Patient did not garbage pick up man his prescriptions after discharge stating he did not know they had been sent to the pharmacy in the hospital. Patient also was discharged from the hospital and used marijuana and cocaine. Patient continues to report suicidal ideation whenever discharge plans are discussed and I see no benefit in continued stays as he has not participated in any groups or activities, is non-elaborative discussing his symptoms making vague statements and becoming angry when he is asked questions regarding his thoughts or symptoms. Patient will continue on Seroquel 200 mg twice a day and 600 mg at bedtime and Zoloft 50 mg daily. Patient will also continue on doxycycline to complete another 10 days of a 14 day course of treatment for his MRSA infection. Patient was advised to avoid any use of drugs or alcohol patient states he has an appointment on October 06 with [facility] for an intake. Patient will be taken today to [facility] for a 2:30 appointment with his supervisor case loading and then will be transported to a half-way. Patient Condition at Discharge: Stable Plan - Discharge Summary Discharge Rx Participant: No New Discharge Prescriptions: New QUEtiapine [SEROquel] 200 mg PO 0900,1600 #28 tab Sertraline [Zoloft] 50 mg PO DAILY #14 tab Continue Doxycycline [Vibramycin] 100 mg PO BID #20 cap QUEtiapine FUMARATE [SEROquel] 600 mg PO HS #28 tab Discontinued QUEtiapine [SEROquel] 200 mg PO DAILY #14 tab Discharge Medication List Doxycycline [Vibramycin] 100 mg PO BID #20 cap 09/23/17 [Rx] QUEtiapine FUMARATE [SEROquel] 600 mg PO HS #28 tab 09/23/17 [Rx] QUEtiapine [SEROquel] 200 mg PO 0900,1600 #28 tab 09/23/17 [Rx] Sertraline [Zoloft] 50 mg PO DAILY #14 tab 09/23/17 [Rx] Follow up Appointment(s)/Referral(s): [facility] [Outside] - 10/06/17 10:[address] [facility] [Outside] - 09/23/17 2:30 pm (09/23/17 at 2:30 pm with Flower Reynolds) None,[facility] [Primary Care Provider] - 1-2 days Discharge Disposition: HOME SELF-CARE
== END 2017-09-23 14:15 | disposition home or self-care (01) | DRG 885 ==
LOC: EC 18:13 → 3MHU 20:52
PROVIDERS: ADMIT Psychiatry & Neurology Psychiatry; ATTEND Psychiatry & Neurology Psychiatry
DX: F25.1 Schizoaffective disorder, depressive type (principal); R45.851 Suicidal ideations; F10.10 Alcohol abuse, uncomplicated; F12.90 Cannabis use, unspecified, uncomplicated; F14.10 Cocaine abuse, uncomplicated; K21.9 Gastro-esophageal reflux disease without esophagitis; F31.9 Bipolar disorder, unspecified; G89.29 Other chronic pain; M54.9 Dorsalgia, unspecified; K59.00 Constipation, unspecified; G43.909 Migraine, unspecified, not intractable, without status migrainosus; L73.2 Hidradenitis suppurativa; F41.9 Anxiety disorder, unspecified; F17.200 Nicotine dependence, unspecified, uncomplicated; Z86.14 Personal history of Methicillin resistant Staphylococcus aureus infection; Z65.3 Problems related to other legal circumstances; Z80.9 Family history of malignant neoplasm, unspecified; Z80.3 Family history of malignant neoplasm of breast; Z81.8 Family history of other mental and behavioral disorders; Z79.899 Other long term (current) drug therapy; Z87.19 Personal history of other diseases of the digestive system; Z91.010 Allergy to peanuts; Z91.013 Allergy to seafood; Z91.018 Allergy to other foods
CPT/HCPCS: 80053; 80061; 80306; 81001; 82075; 83036; 84484; 85025; 93005; 99285

== ENCOUNTER 2017-10-11 06:36 | Inpatient (IN) | payer MEDICAID, OTHER ==
--- NOTE | 2017-10-11 07:25 | ED ---
General Adult HPI - General Chief complaint: Psychiatric Symptoms Stated complaint: Mental Health Time Seen by Provider: 10/11/17 07:10 Source: patient, RN notes reviewed Mode of arrival: ambulatory Limitations: altered mental status - History of Present Illness Initial comments: Patient is a pleasant 57-year-old male presenting to the emergency department for mental health evaluation. Patient states he does hear voices that tell him to hurt himself and others. Patient has thoughts of doing this. Patient states he has been taking his medicine. Patient also sees people looking at him. Patient admits to feeling paranoid. No new physical complaints. - Related Data Previous Rx's Medication Instructions Recorded Doxycycline [Vibramycin] 100 mg PO BID #20 cap 09/23/17 QUEtiapine FUMARATE [SEROquel] 600 mg PO HS #28 tab 09/23/17 QUEtiapine [SEROquel] 200 mg PO 0900,1600 #28 tab 09/23/17 Sertraline [Zoloft] 50 mg PO DAILY #14 tab 09/23/17 Allergies Allergy/AdvReac Type Severity Reaction Status Date / Time peanut [Peanut Butter] Allergy Unknown Verified 10/11/17 06:51 tomato Allergy Unknown Verified 10/11/17 06:51 seafood Allergy Unknown Uncoded 10/11/17 06:51 Review of Systems ROS Statement: Those systems with pertinent positive or pertinent negative responses have been documented in the HPI. ROS Other: All systems not noted in ROS Statement are negative. Constitutional: Denies: fever Eyes: Denies: eye pain ENT: Denies: ear pain Respiratory: Denies: cough Cardiovascular: Denies: chest pain Endocrine: Denies: fatigue Gastrointestinal: Denies: abdominal pain Genitourinary: Denies: dysuria Musculoskeletal: Denies: back pain Skin: Denies: rash Neurological: Denies: weakness Psychiatric: Reports: auditory hallucinations, visual hallucinations Past Medical History Past Medical History: GERD/Reflux Additional Past Medical History / Comment(s): chronic back pain, migraines, constipation. History of Any Multi-Drug Resistant Organisms: MRSA Date of last positivie culture/infection: 09/16/17 MDRO Source:: AXILLA Past Surgical History: Hernia Repair Additional Past Surgical History / Comment(s): Right inguinal hernia repair Past Anesthesia/Blood Transfusion Reactions: No Reported Reaction Past Psychological History: Anxiety, Bipolar, Depression, Schizophrenia Smoking Status: Former smoker Past Alcohol Use History: None Reported Past Drug Use History: Cocaine, Marijuana - Past Family History Father Additional Family Medical History / Comment(s): Father at age 73 from a motor vehicle accident. Mother Additional Family Medical History / Comment(s): Mom at age 56 from breast cancer with brain tumor and she also had mental health issues. Sister(s) Additional Family Medical History / Comment(s): Patient has 2 sisters with no major medical problems. Brother(s) Additional Family Medical History / Comment(s): Patient has 1 brother that was killed. Patient did not give details. Son(s) Additional Family Medical History / Comment(s): He has one son with no major medical problems. General Exam Limitations: altered mental status General appearance: alert, in no apparent distress Head exam: Present: atraumatic Eye exam: Present: normal appearance Neck exam: Present: normal inspection Respiratory exam: Present: normal lung sounds bilaterally Cardiovascular Exam: Present: regular rate, normal rhythm GI/Abdominal exam: Present: soft. Absent: tenderness Extremities exam: Present: normal inspection Neurological exam: Present: alert Psychiatric exam: Present: flat affect Skin exam: Present: normal color Course Vital Signs 10/11/17 06:46 Temperature 97.5 F L Pulse Rate 82 Respiratory 18 Rate Blood Pressure 124/79 O2 Sat by Pulse 96 Oximetry Medical Decision Making - Medical Decision Making Patient was seen by mental health services, who will admit. - Lab Data Lab Results 10/11/17 Range/Units 08:30 Urine Opiates Screen Not Detected (NotDetected) Ur Oxycodone Screen Not Detected (NotDetected) Urine Methadone Screen Not Detected (NotDetected) Ur Propoxyphene Screen Not Detected (NotDetected) Ur Barbiturates Screen Not Detected (NotDetected) U Tricyclic Antidepress Detected H (NotDetected) Ur Phencyclidine Scrn Not Detected (NotDetected) Ur Amphetamines Screen Not Detected (NotDetected) U Methamphetamines Scrn Not Detected (NotDetected) U Benzodiazepines Scrn Not Detected (NotDetected) Urine Cocaine Screen Detected H (NotDetected) U Marijuana (THC) Screen Detected H (NotDetected) Disposition Clinical Impression: Schizophrenia Disposition: TRANSFER TO PSYCH HOSP/UNIT Is patient prescribed a controlled substance at d/c from ED?: No Referrals: None,Stated [Primary Care Provider] - 1-2 days Decision Time: 09:44
[2017-10-11 09:31] LABS: Amphetamine Screen,Urine Not Detected (NotDetected); Barbiturate Screen,Urine Not Detected (NotDetected); Benzodiazepines Screen,Urine Not Detected (NotDetected); Cocaine Screen,Urine Detected (NotDetected); Methadone Screen, Urine Not Detected (NotDetected); Opiate Screen,Urine Not Detected (NotDetected); Oxycodone Screen, Urine Not Detected (NotDetected); Phencyclidine Screen,Urine Not Detected (NotDetected); Tricyclic Antidepressant,Urine Detected (NotDetected); Urn Cannabinoid Scrn Detected (NotDetected)
[2017-10-11] MEDS ORDERED: MAG HYDROX/AL HYDROX/SIMETH 30 ML CUP PO PRN (11:53)
[2017-10-11] MEDS ORDERED: MAGNESIUM HYDROXIDE 2,400 MG/10 ML CUP PO PRN (11:53)
[2017-10-11] MEDS ORDERED: ZIPRASIDONE 20 MG VIAL IM PRN (11:53)
--- NOTE | 2017-10-11 13:22 | P.HPMEDMHU ---
History of Present Illness H&P Date: 10/11/17 Chief Complaint: hearing voices 57-year-old male that was admitted to the mental health unit secondary to hearing voices. He says these voices are telling him to hurt people Patient denies any medical problems. Review of Systems No chest pain no nausea no vomiting no fever SYSTEMS REVIEWED WERE NEGATIVE EXCEPT WHAT WAS MENTIONED IN HPI Past Medical History Past Medical History: GERD/Reflux Additional Past Medical History / Comment(s): chronic back pain, migraines, constipation. History of Any Multi-Drug Resistant Organisms: MRSA Date of last positivie culture/infection: 09/16/17 MDRO Source:: AXILLA Past Surgical History: Hernia Repair Additional Past Surgical History / Comment(s): Right inguinal hernia repair Past Anesthesia/Blood Transfusion Reactions: No Reported Reaction Past Psychological History: Anxiety, Bipolar, Depression, Schizophrenia Smoking Status: Former smoker Past Alcohol Use History: None Reported Past Drug Use History: Cocaine, Marijuana - Past Family History Father Additional Family Medical History / Comment(s): Father at age 73 from a motor vehicle accident. Mother Additional Family Medical History / Comment(s): Mom at age 56 from breast cancer with brain tumor and she also had mental health issues. Sister(s) Additional Family Medical History / Comment(s): Patient has 2 sisters with no major medical problems. Brother(s) Additional Family Medical History / Comment(s): Patient has 1 brother that was killed. Patient did not give details. Son(s) Additional Family Medical History / Comment(s): He has one son with no major medical problems. Medications and Allergies Home Medications Medication Instructions Recorded Confirmed Type Doxycycline [Vibramycin] 100 mg PO BID #20 cap 09/23/17 Rx QUEtiapine FUMARATE [SEROquel] 600 mg PO HS #28 tab 09/23/17 Rx QUEtiapine [SEROquel] 200 mg PO 0900,1600 #28 tab 09/23/17 Rx Sertraline [Zoloft] 50 mg PO DAILY #14 tab 09/23/17 Rx Allergies Allergy/AdvReac Type Severity Reaction Status Date / Time peanut [Peanut Butter] Allergy Unknown Verified 10/11/17 06:51 tomato Allergy Unknown Verified 10/11/17 06:51 seafood Allergy Unknown Uncoded 10/11/17 06:51 Physical Exam Vitals: Vital Signs Temp Pulse Pulse Resp BP BP Pulse Ox 10/11/17 11:39 96.9 F L 80 20 110/69 94 L 10/11/17 10:00 98.1 F 71 16 125/67 97 10/11/17 06:46 97.5 F L 82 18 124/79 96 Intake and Output 10/10/17 10/11/17 10/11/17 22:59 06:59 14:59 Other: Weight 86.183 kg 92.3 kg General: Alert and oriented 3 Oral no thrush FERN Lungs no crackles no wheezes Heart S1-S2 Abdomen soft and depressible nontender Extremities no edema Neuro cranial nerves are intact no motor deficit Skin no rash no lymph nodes palpable Cranial Nerve Examination - Cranial Nerves Cranial Nerve II- Optic: Intact Cranial Nerve III- Oculomotor: Intact Cranial Nerve IV- Trochlear: Intact Cranial Nerve V- Trigeminal: Intact Cranial Nerve - Abducens: Intact Cranial Nerve VII- Facial: Intact Cranial Nerve VIII- Auditory: Intact Cranial Nerve IX- Glossopharyngeal: Intact Cranial Nerve X- Vagus: Intact Cranial Nerve XI- Accessory: Intact Cranial Nerve XII- Hypoglossal: Intact Results Labs: Abnormal Lab Results - Last 24 Hours (Table) 10/11/17 Range/Units 08:30 U Tricyclic Antidepress Detected H (NotDetected) Urine Cocaine Screen Detected H (NotDetected) U Marijuana (THC) Screen Detected H (NotDetected) Assessment and Plan (1) Schizophrenia Narrative/Plan: Per psych Current Visit: Yes Status: Acute Code(s): F20.9 - SCHIZOPHRENIA, UNSPECIFIED SNOMED Code(s): 68683538
--- NOTE | 2017-10-11 14:02 | P.HP ---
Psychiatric H&P - . H&P Date: 10/11/17 History & Physical: Allergies Allergy/AdvReac Type Severity Reaction Status Date / Time peanut [Peanut Butter] Allergy Unknown Verified 10/11/17 06:51 tomato Allergy Unknown Verified 10/11/17 06:51 seafood Allergy Unknown Uncoded 10/11/17 06:51 Vital Signs Temp 96.9 F L 10/11/17 11:39 Pulse 80 10/11/17 11:39 Resp 20 10/11/17 11:39 BP 110/69 10/11/17 11:39 Pulse Ox 94 L 10/11/17 11:39 Intake & Output 10/10/17 10/11/17 10/11/17 18:59 06:59 18:59 Weight 86.183 kg 92.3 kg Laboratory Last Values Urine Opiates Screen Not Detected (NotDetected) 10/11/17 08:30 Ur Oxycodone Screen Not Detected (NotDetected) 10/11/17 08:30 Urine Methadone Screen Not Detected (NotDetected) 10/11/17 08:30 Ur Propoxyphene Screen Not Detected (NotDetected) 10/11/17 08:30 Ur Barbiturates Screen Not Detected (NotDetected) 10/11/17 08:30 U Tricyclic Antidepress Detected (NotDetected) H 10/11/17 08:30 Ur Phencyclidine Scrn Not Detected (NotDetected) 10/11/17 08:30 Ur Amphetamines Screen Not Detected (NotDetected) 10/11/17 08:30 U Methamphetamines Scrn Not Detected (NotDetected) 10/11/17 08:30 U Benzodiazepines Scrn Not Detected (NotDetected) 10/11/17 08:30 Urine Cocaine Screen Detected (NotDetected) H 10/11/17 08:30 U Marijuana (THC) Screen Detected (NotDetected) H 10/11/17 08:30 10/11/17 13:56 IDENTIFYING DATA: A 67-year-old -[place] single male patient HPI: Patient admitted to the inpatient psychiatric unit [facility] on a voluntary basis with symptoms of psychosis as well as thoughts of harm to self and others. Patient reports that the voices got bad, trying to get him to hurt people and himself. He states that they started up again 4 days ago and he came to the ER with having thoughts of suicide and thoughts of harm to others in general. PAST PSYCHIATRIC HISTORY: He says he's been on the psychiatric unit 4-5 times in the past. He has had 1 suicide attempt regarding his wrists. He has history of diagnosis he says of schizophrenia and bipolar disorder. He doesn't remember any manic episodes. Most recent medications have been Seroquel dosed to 200 mg twice a day, 600 mg at bedtime and Zoloft 50 mg daily. He is not currently seeing a psychiatrist or counselor. PMH: Denies ALLERGIES: Peanut, tomato, seafood MEDICATIONS: Tylenol when necessary, Maalox when necessary, Ativan when necessary, milk of magnesia when necessary, Geodon when necessary, Seroquel, Zoloft CHEMICAL DEPENDENCY HISTORY: Patient states that he uses cocaine and marijuana. He says he relapsed 3-4 days ago. Does not verbalize any alcohol use. He says he has been to rehab 4-5 times. FAMILY PSYCHIATRIC HISTORY: Mom and dad both had mental illness FAMILY CHEMICAL DEPENDENCY HISTORY: None known at this time. SOCIAL HISTORY: Patient states he lives with a friend in an apartment. He is never been and has no children. He is on disability. MENTAL STATUS EXAM: He is alert and cooperative with the exam. His eye contact is poor. He related that he still having thoughts of harm to himself and others in general. Says he is trying to ignore the voices. He described voices telling him to hurt people and himself which prompted him to come to the hospital. He describes his mood as "down." His affect is restricted. I do not note any evidence of disorientation or significant memory impairment. His insight is adequate, judgment shows evidence of recent impairment. Cognitively appears to be grossly intact. STRENGTHS/WEAKNESSES: Strengths-seeking treatment; weaknesses-coping skills, no current outpatient treatment INTELLECTUAL FUNCTIONING: Average IMPRESSIONS: Schizoaffective disorder, depressive versus bipolar type; cannabis and cocaine use disorders PLAN: Patient is admitted to the inpatient psychiatric unit [facility] on a voluntary basis. He will placed on SP 15 impressions. Baseline laboratory workup will be done and medical consultation will be ordered. He'll participate in group and activity therapies. We'll maintain Seroquel as current to help treat psychosis symptoms as well as Zoloft for depressive component, consider further titration of Zoloft. We will monitor for any medication side effects. We'll look into any support systems. Estimated length of stay is 5-7 days. Prognosis is guarded.
[2017-10-11] MEDS: QUEtiapine 200 MG TAB PO SCH ×2 (16:35→22:02)
[2017-10-11] MEDS: NICOTINE 21MG/24HR PATCH TRANSDERM SCH (17:01)
[2017-10-12] MEDS: NICOTINE 21MG/24HR PATCH TRANSDERM SCH (08:19)
[2017-10-12] MEDS: QUEtiapine 200 MG TAB PO SCH ×3 (08:20→20:24)
[2017-10-12] MEDS: SERTRALINE 50 MG TAB PO SCH (08:20)
[2017-10-12 09:15] LABS: Basophils % (A) 0 %; Eosinophils # (A) 0.2 k/uL (0-0.7); Eosinophils % (A) 5 %; HCT 41.6 % (39.0-53.0); HGB 13.6 gm/dL (13.0-17.5); Lymphocytes % (A) 46 %; MCHC 32.8 g/dL (31.0-37.0); MCV 94.6 fL (80.0-100.0); Mean Platelet Volume 7.5; Monocytes # (A) 0.2 k/uL (0-1.0); Monocytes % (A) 5 %; Neutrophils # (A) 1.8 k/uL (1.3-7.7); Neutrophils % (A) 42 %; Platelet Count 291 k/uL (150-450); RBC 4.39 m/uL (4.30-5.90); WBC 4.3 k/uL (3.8-10.6)
[2017-10-12 09:45] LABS: ALT 16 U/L (21-72); AST 14 U/L (17-59); Albumin 3.2 g/dL (3.5-5.0); Alkaline Phosphatase 94 U/L (38-126); Anion Gap 9 mmol/L; Blood Urea Nitrogen 14 mg/dL (9-20); Calcium 9.4 mg/dL (8.4-10.2); Carbon Dioxide 28 mmol/L (22-30); Chloride 107 mmol/L (98-107); Cholesterol 143 mg/dL (<200); Glucose 92 mg/dL (74-99); HDL Cholesterol 55 mg/dL (40-60); LDL Cholesterol,Calculated 74 mg/dL (0-99); Potassium 3.9 mmol/L (3.5-5.1); Sodium 144 mmol/L (137-145); Total Bilirubin 0.4 mg/dL (0.2-1.3); Triglycerides 70 mg/dL (<150)
[2017-10-12 16:02] VITALS: BMI 29.7
--- NOTE | 2017-10-12 18:57 | P.PN ---
Progress Note - Text Progress Note Date: 10/12/17 Interval history: Patient seen in [facility] [place]. He reports that his mood is little up and down today. Overall he does feel like he is doing better. He seems to be tolerating psychotropic medications well. He does describe some back discomfort from having fallen prior to coming in the hospital. I did mention Tylenol as ordered as needed for him, he reports that he doesn't do well with Tylenol or aspirin and he'll just go through it. I'll status exam: He is alert and cooperative with the interview. His affect is restricted. His mood is he describes as "up and down." Regarding thoughts of suicide he states that they are on and off, he feels safe here on the unit. He denies any thoughts of harm to others. He reports he is having some auditory hallucinations but they're less frequent. He does not present with any agitation. Plan: Patient will be maintained on current psychotropic medications. Continue to monitor his mood, monitor regarding any thoughts of suicide and as well for any psychosis symptoms. Continue to monitor for any medication side effects.
[2017-10-12 20:53] LABS: Hemoglobin A1C 5.9 % (4.0-6.0)
[2017-10-12] MEDS: LORazepam 1 MG TAB PO PRN (22:28)
[2017-10-13] MEDS: SERTRALINE 50 MG TAB PO SCH (08:58)
[2017-10-13] MEDS: QUEtiapine 200 MG TAB PO SCH ×3 (08:58→20:33)
[2017-10-13] MEDS: NICOTINE 21MG/24HR PATCH TRANSDERM SCH (08:58)
[2017-10-13] MEDS: ACETAMINOPHEN TAB 325 MG TAB PO PRN (11:26)
[2017-10-13] MEDS: LORazepam 1 MG TAB PO PRN ×2 (11:26→20:33)
--- NOTE | 2017-10-13 13:52 | P.PN ---
Progress Note - Text Progress Note Date: 10/13/17 Interval History: Patient is a 57-year-old male who is readmitted to the hospital, patient states that he did not go to [facility] on October 06 because he had no transportation to get there. He states that he has not followed up with [facility] after his first visit on his day of discharge. Patient states that he had just moved into an apartment on Friday and his roommate told him that he was talking too much into himself and suggested he come to the hospital. Patient states that he had not been taking his medications as directed he thought he could do without them. Patient also states that he was using cocaine and marijuana again, initially telling me he hadn't used it for 3 weeks. He states that his suicidal thoughts return and he was hearing voices again telling him to hurt someone and telling him that he they don't like me. Patient states that he also fell going up a set of stairs and complains of back pain. He states that he slept on and off last night and his appetite is good. He states that he is feeling depressed. Mental Status: Appearance/Attitude: Patient is dressed in a hospital gown, makes no eye contact is bent over at the waist wincing and holding his back during the interview and is cooperative Behavior: Patient does not exhibit any psychomotor agitation or retardation but states that his back hurts Speech/Language: Patient's speech is spontaneous and normal volume and rhythm and he is coherent Thought Process: Patient's thought processes are goal-directed, there is no evidence of loose association or flight of ideas Thought Content: Patient reports continuing to hear voices that are telling him to hurt himself, no visual hallucinations and no delusions or paranoid ideation or elicited. Patient states he wasn't taking his medications as directed and the voices increased in intensity as well as his depression and suicidal thoughts. He states that he had just moved into a apartment with a roommate told him to come to the emergency room. Patient states he had not been taking his voices as directed after discharge and did not follow up with his intake at [facility] on October 06 because he had no transportation. States he was sleeping on and off last night and his appetite is good Suicidal/Homicidal Ideation: Patient reports he continues to have suicidal thoughts and no current homicidal ideation Sensorium/Cognition: Patient is alert and oriented to person, place, and time and his recent and remote memory grossly intact. Mood/Affect: Patient's mood is depressed and his affect is appropriate Insight/Judgment: Patient's insight and judgment are limited Assessment: Patient returns to the hospital after having been discharged earlier this month. He states that he wasn't taking his medications as directed and adjust moved into an apartment and began hearing voices and talking to himself. He states that he was also having return of the suicidal thoughts and felt that he might act on them. Patient had also been using cocaine and marijuana prior to his admission. Patient is now complaining of back pain stating that he fell on a pair of stairs while visiting a friend. Patient states that he had been living with another friend and this person was using drugs and asked why he had started using again. Patient did not follow up with [facility] other than on the day of his discharge and did not go to [facility] on October 06 because he had no transportation. Plan: Patient will continue on Seroquel 200 mg twice a day and 600 mg at bedtime and I increased the Zoloft to 75 mg a day to target his symptoms of depression. Patient continues to require hospitalization to further stabilize his mood and psychotic symptoms. Patient states that he has an apartment that he can return to on discharge.
[2017-10-14] MEDS: NICOTINE 21MG/24HR PATCH TRANSDERM SCH (08:31)
[2017-10-14] MEDS: QUEtiapine 200 MG TAB PO SCH ×3 (08:32→21:01)
[2017-10-14] MEDS: SERTRALINE 25 MG TAB PO SCH (08:32)
--- NOTE | 2017-10-14 12:00 | P.PN ---
Progress Note - Text Progress Note Date: 10/14/17 Interval History: Patient is a 57-year-old male who was seen today. Patient reports that he is still hearing voices but again would not elaborate on what they were saying and still having suicidal thoughts. Patient again elaborates very little when reporting symptoms. Patient states that he slept okay and his appetite is fair. He reports taking Ativan last night which helped with his anxiety, but he could not describe further what the anxiety was about. He states that he wants to try to return to [place] again this time and he was encouraged to contact them and set up another intake appointment. Patient states that he was unaware he could get transportation to that appointment through his insurance. Patient reported continued back and neck pain from a fall several days prior to his admission. Mental Status:Appearance/Attitude: Patient is dressed in a hospital gown, when walking with me back to the interview room he was walking slowly and with a slight limp and he was cooperative making no eye contact Behavior: Patient did not display any psychomotor agitation or retardation. Speech/Language: Patient's speech was spontaneous but with little elaboration of normal volume and rhythm and he is coherent Thought Process: Patient is goal-directed again with limited elaboration on symptoms, no evidence of loose association or flight of ideas Thought Content: Patient reports continued auditory hallucinations which he is unable to elaborate on no visual hallucinations no delusions or paranoid ideation or elicited. Patient states that he is continuing to feel depressed but he slept fine and his appetite is fair. He states that he needed Ativan last evening for his anxiety but is unable to describe what he was anxious about. Patient also continues to report that and head pain from a fall several days prior to admission down a few stairs. Suicidal/Homicidal Ideation: Patient states that he continues to have suicidal thoughts with no plan or intent to act and no current homicidal ideation Sensorium/Cognition: Patient is alert and oriented to person, place, and time. Patient's recent and remote memory are grossly intact. Mood/Affect: Patient's mood is restricted and his affect is blunted Insight/Judgment: As insight and judgment are fair Assessment: Patient continues to report auditory hallucinations but is unable to elaborate or state what they are saying, he reports continued suicidal thoughts with no plan or intent to act. Patient states that he slept well last evening but continues to report head and back pain from a fall several days prior to admission down several steps. Patient was observed walking with me to the interview room where he was limping slightly and had great difficulty in getting out of the chair in the interview room when we concluded. Patient was observed walking in the hallways after the interview without being aware of my observing him and was noted to be walking briskly down the [place] without any evidence of a limp or pain and swinging both arms. Patient is now stating that he wishes to go to [place] and was encouraged to make the calls and set up another intake appointment. Plan: Patient will continue on Seroquel 200 mg twice a day and 600 mg at bedtime and his Zoloft was increased to 75 mg to target his depression and auditory hallucinations. Patient was encouraged to contact [place] to set up an intake appointment as he has requested. Patient states that he is able to return to the room that he is renting with a roommate. Patient continues to require hospitalization secondary to his complaints of suicidal thoughts and auditory hallucinations.
[2017-10-14] MEDS: ACETAMINOPHEN TAB 325 MG TAB PO PRN (12:22)
[2017-10-14] MEDS: LORazepam 1 MG TAB PO PRN (21:01)
[2017-10-15] MEDS: NICOTINE 21MG/24HR PATCH TRANSDERM SCH (08:30)
[2017-10-15] MEDS: QUEtiapine 200 MG TAB PO SCH ×3 (08:31→20:53)
[2017-10-15] MEDS: SERTRALINE 25 MG TAB PO SCH (08:31)
[2017-10-15] MEDS ORDERED: IBUPROFEN 200 MG TAB PO PRN (09:18)
--- NOTE | 2017-10-15 12:30 | P.PN ---
Progress Note - Text Progress Note Date: 10/15/17 Interval History: Patient is a 57-year-old male who was seen today and he reports that all day yesterday the voices had stopped. He states that the suicidal thoughts are still there but they are a little bit better than they have been. Patient states that he was up at night due to his back pain. He reports that he contacted [facility] and has an intake appointment for 10:30 AM this Friday. Patient states that he's been attending groups and activities. Patient feels that the increase in the Zoloft has been beneficial. Mental Status: Appearance/Attitude: Patient is casually dressed, makes intermittent eye contact and is superficially cooperative Behavior: Patient does not exhibit any psychomotor agitation or retardation. Speech/Language: Patient's speech is spontaneous however his responses to questions are brief and non-elaborative he speaks in a normal volume and rhythm and he is coherent Thought Process: Patient is goal-directed with limited responses to questions and no evidence of loose association or flight of ideas Thought Content: Patient states that the voices stopped all day yesterday no current visual hallucinations and no delusions or paranoid ideation were elicited. He states that he still has some suicidal ideation but it is improved as has his mood with the increase in Zoloft. Patient states that he was up at night. Patient states he is eating well and complains of back pain. Suicidal/Homicidal Ideation: Patient reports continued suicidal ideation with no plan or intent to act and no current homicidal ideas Sensorium/Cognition: Patient is alert and oriented to person, place, and time and his recent and remote memory are grossly intact Mood/Affect: Patient's mood remains depressed and his affect blunted Insight/Judgment: Patient's insight and judgment are fair Assessment: Patient reports with the increase in Zoloft that the voices were gone yesterday, his suicidal ideation has decreased he states that his mood has improved. He contacted [facility] and made another intake appointment for this Friday at 10:30 in the morning. He reports he was up at night but cannot tell me what was bothering him other than that he continues to have back pain and the Tylenol is not been effective. Patient states that he is been trying to go to groups and activities. It was discussed in team meeting having the patient be discharged on Friday however I will not be working this Saturday and the patient will need to be discharged on Friday and then picked up and taken to [facility] on Friday Plan: Patient will continue on Seroquel 200 mg twice a day and 600 mg at bedtime and Zoloft 75 mg a day. Patient will also be changed from Tylenol to Motrin to assist with his complaints of back pain. Patient continues to require hospitalization to further stabilize his mood. Patient was encouraged to follow up with his appointment on Friday at [facility].
[2017-10-15] MEDS: LORazepam 1 MG TAB PO PRN ×2 (15:35→23:03)
[2017-10-16 07:01] VITALS: RESP 16
[2017-10-16] MEDS: QUEtiapine 200 MG TAB PO SCH ×3 (08:42→20:32)
[2017-10-16] MEDS: NICOTINE 21MG/24HR PATCH TRANSDERM SCH (08:42)
[2017-10-16] MEDS: SERTRALINE 25 MG TAB PO SCH (08:42)
[2017-10-16] MEDS: LORazepam 1 MG TAB PO PRN ×2 (10:43→20:34)
--- NOTE | 2017-10-16 12:31 | P.PN ---
Progress Note - Text Progress Note Date: 10/16/17 Interval History: Patient is a 57-year-old male who reports that he is feeling fairly well other than continuing to complain of back pain. He states that he needed Ativan last evening to assist with his sleep. Patient states that he is not having any suicidal thoughts and is not hearing voices. He feels that he will be ready for discharge tomorrow and is looking forward to beginning [facility] on Friday. Patient reported no side effects from his medication and states that he has not tried the Motrin yet for his back pain. Mental Status: Appearance/Attitude: Patient is casually dressed, makes intermittent eye contact and is cooperative. Behavior: Patient does not display any psychomotor agitation or retardation. Speech/Language: Patient's speech is spontaneous and normal volume and rhythm and he is coherent Thought Process: Patient is goal-directed with little elaboration no evidence of loose association or flight of ideas Thought Content: Patient denies any auditory or visual hallucinations and no delusions or paranoid ideation were elicited. Patient continues to complain of back pain but has yet to take Motrin to see if he would get relief with this and states that he had difficulty sleeping last evening because of his back pain. Patient states that he is ready for discharge tomorrow and is looking forward to going to [facility] on Friday. Suicidal/Homicidal Ideation: Patient denies any current suicidal or homicidal ideation Sensorium/Cognition: Patient is alert and oriented to person, place, and time and his recent and remote memory grossly intact Mood/Affect: Patient's mood is less depressed and his affect is appropriate Insight/Judgment: Patient's insight and judgment are fair Assessment: Patient states that he is not having any auditory hallucinations and no suicidal thoughts and states he's been attending most of the groups and activities. He states that he continues to have back pain but has yet not taken Motrin to see if this would be better than the Tylenol. Patient states that he feels he is ready for discharge tomorrow. Patient reports that he slept about 6 hours last night. Plan: Patient will continue on Seroquel 200 mg twice a day and 600 mg at bedtime as well as Zoloft 75 mg in the morning. Patient and I discussed plans for him to be discharged tomorrow and then be transported to [facility] on Friday for his intake appointment. Patient is agreeable with this plan.
[2017-10-17 07:15] VITALS: BP 130/83; PULSE 73; TEMP 97.6
[2017-10-17] MEDS: QUEtiapine 200 MG TAB PO SCH (08:18)
[2017-10-17] MEDS: NICOTINE 21MG/24HR PATCH TRANSDERM SCH (08:18)
[2017-10-17] MEDS: SERTRALINE 25 MG TAB PO SCH (08:18)
--- NOTE | 2017-10-17 11:16 | P.DS ---
Providers Date of admission: 10/11/17 09:46 Expected date of discharge: 10/17/17 Attending physician: Elaine Hsu MD Consults: 10/11/17 11:53 Consult Physician Routine Consulting Provider: Kec[facility] Consult Reason/Comments: H&P, with medical consult Do you want consulting provider notified?: Yes Primary care physician: Stated None Hospital Course: Discharge Diagnosis: Schizoaffective disorder, depressed type; cocaine use disorder, cannabis use disorder Reason for Admission: Patient is a 67-year-old male who was recently discharged from the inpatient psychiatric unit who returned to the emergency room stating that his auditory hallucinations had increased telling him to hurt himself and other people. He states that he also had thoughts of suicide. Patient did not follow up with [facility] other than being seen for his intake appointment on his day of discharge. Patient was also supposed to go to [facility] on October 06 but did not go because he states he had no transportation. Patient stated to me that he had moved into an apartment on Friday prior to his admission and that his roommate told him he was talking to himself and so he came to the emergency room on Friday. Patient states that he also had not been taking his medications because he can't he could do without them. Patient was also using cocaine and marijuana. Patient on admission made poor eye contact, reported thoughts of suicide to himself and states that he was also thinking of hurting others in general. He reported he was trying to ignore the voices. He does reported that his mood was down. Hospital Course: Patient was admitted on a voluntary basis placed on routine precautions and group and activity therapy were ordered. Patient was also ordered routine laboratory studies and a medical consultation. Patient was restarted on his prior medications of Seroquel 200 mg twice a day and 600 mg at bedtime and Zoloft was begun at 50 mg daily. Patient reported that the voices were beginning to decrease but he was still feeling suicidal and depressed and so Zoloft was increased to 75 mg in the morning. Patient reported to me increasing back pain secondary to a fall that he sustained prior to coming into the hospital gown several steps, however when patient was observed on the unit he was walking without difficulty. Patient did attend some groups and activities, he was sleeping well and eating well. Patient again requested going to [facility] and so a second intake was scheduled for October 18 at 10: 30 in the morning. Patient reported that he was no longer hearing voices, no longer feeling suicidal and made no further complaints of back pain stating that the Motrin had been beneficial. Patient was deemed ready for discharge and he was agreeable to this plan. Allergies peanut [Peanut Butter] Allergy (Verified 10/12/17 16:03) Unknown tomato Allergy (Verified 10/12/17 16:03) Unknown seafood Allergy (Uncoded 10/12/17 16:03) Unknown Laboratory Last Values WBC 4.3 k/uL (3.8-10.6) 10/12/17 08:59 RBC 4.39 m/uL (4.30-5.90) 10/12/17 08:59 Hgb 13.6 gm/dL (13.0-17.5) 10/12/17 08:59 Hct 41.6 % (39.0-53.0) 10/12/17 08:59 MCV 94.6 fL (80.0-100.0) 10/12/17 08:59 MCH 31.0 pg (25.0-35.0) 10/12/17 08:59 MCHC 32.8 g/dL (31.0-37.0) 10/12/17 08:59 RDW 15.0 % (11.5-15.5) 10/12/17 08:59 Plt Count 291 k/uL (150-450) 10/12/17 08:59 Neutrophils % 42 % 10/12/17 08:59 Lymphocytes % 46 % 10/12/17 08:59 Monocytes % 5 % 10/12/17 08:59 Eosinophils % 5 % 10/12/17 08:59 Basophils % 0 % 10/12/17 08:59 Neutrophils # 1.8 k/uL (1.3-7.7) 10/12/17 08:59 Lymphocytes # 2.0 k/uL (1.0-4.8) 10/12/17 08:59 Monocytes # 0.2 k/uL (0-1.0) 10/12/17 08:59 Eosinophils # 0.2 k/uL (0-0.7) 10/12/17 08:59 Basophils # 0.0 k/uL (0-0.2) 10/12/17 08:59 Sodium 144 mmol/L (137-145) 10/12/17 08:59 Potassium 3.9 mmol/L (3.5-5.1) 10/12/17 08:59 Chloride 107 mmol/L (98-107) 10/12/17 08:59 Carbon Dioxide 28 mmol/L (22-30) 10/12/17 08:59 Anion Gap 9 mmol/L 10/12/17 08:59 BUN 14 mg/dL (9-20) 10/12/17 08:59 Creatinine 0.90 mg/dL (0.66-1.25) 10/12/17 08:59 Est GFR (CKD-EPI)AfAm >90 (>60 ml/min/1.73 sqM) 10/12/17 08:59 Est GFR (CKD-EPI)NonAf >90 (>60 ml/min/1.73 sqM) 10/12/17 08:59 Glucose 92 mg/dL (74-99) 10/12/17 08:[address] Glu mg/dL 123 10/12/17 08:59 Hemoglobin A1c 5.9 % (4.0-6.0) 10/12/17 08:59 Calcium 9.4 mg/dL (8.4-10.2) 10/12/17 08:59 Total Bilirubin 0.4 mg/dL (0.2-1.3) 10/12/17 08:59 AST 14 U/L (17-59) L 10/12/17 08:59 ALT 16 U/L (21-72) L 10/12/17 08:59 Alkaline Phosphatase 94 U/L (38-126) 10/12/17 08:59 Total Protein 6.0 g/dL (6.3-8.2) L 10/12/17 08:59 Albumin 3.2 g/dL (3.5-5.0) L 10/12/17 08:59 Triglycerides 70 mg/dL (<150) 10/12/17 08:59 Cholesterol 143 mg/dL (<200) 10/12/17 08:59 LDL Cholesterol, Calc 74 mg/dL (0-99) 10/12/17 08:59 HDL Cholesterol 55 mg/dL (40-60) 10/12/17 08:59 TSH 1.720 mIU/L (0.465-4.680) 10/12/17 08:59 Urine Opiates Screen Not Detected (NotDetected) 10/11/17 08:30 Ur Oxycodone Screen Not Detected (NotDetected) 10/11/17 08:30 Urine Methadone Screen Not Detected (NotDetected) 10/11/17 08:30 Ur Propoxyphene Screen Not Detected (NotDetected) 10/11/17 08:30 Ur Barbiturates Screen Not Detected (NotDetected) 10/11/17 08:30 U Tricyclic Antidepress Detected (NotDetected) H 10/11/17 08:30 Ur Phencyclidine Scrn Not Detected (NotDetected) 10/11/17 08:30 Ur Amphetamines Screen Not Detected (NotDetected) 10/11/17 08:30 U Methamphetamines Scrn Not Detected (NotDetected) 10/11/17 08:30 U Benzodiazepines Scrn Not Detected (NotDetected) 10/11/17 08:30 Urine Cocaine Screen Detected (NotDetected) H 10/11/17 08:30 U Marijuana (THC) Screen Detected (NotDetected) H 10/11/17 08:30 Discharge Mental Status: Appearance/Attitude: Patient is casually dressed, makes good eye contact and is cooperative. Behavior: Patient does not exhibit any psychomotor agitation or retardation. Speech/Language: Patient's speech is spontaneous of normal volume and rhythm and he is coherent. Thought Process: Patient is goal-directed, there is no evidence of loose association or flight of ideas Thought Content: Patient denies any auditory or visual hallucinations and no delusions or paranoid ideation or elicited. Patient denies that he is feeling depressed, states he is sleeping and eating well. Suicidal/Homicidal Ideation: Patient denies any current suicidal or homicidal ideation Sensorium/Cognition: Patient is alert and oriented to person, place, and time and his recent and remote memory are grossly intact. Mood/Affect: Patient's mood is euthymic and his affect is slightly blunted Insight/Judgment: Patient's insight and judgment are fair Risk Assessment: Patient's risk for readmission is high secondary to poor compliance with medication and follow-up, use of drugs. Discharge Plan: Patient will be discharged to return to his apartment and will have an intake with [facility] on October 18 at 10:30 in the morning and will be transported from the hospital to his apartment and then to [facility] for the intake appointment by peers support from [facility]. Patient will also follow up with [facility] after his discharge from [facility]. Patient was encouraged to remain compliant with medication as well as his outpatient appointments and to avoid the use of any alcohol or drugs. Patient Condition at Discharge: Stable Plan - Discharge Summary Discharge Rx Participant: No New Discharge Prescriptions: New Sertraline HCl [Zoloft] 50 mg PO DAILY #21 tablet Continue QUEtiapine [SEROquel] 200 mg PO 0900,1600 #28 tab QUEtiapine FUMARATE [SEROquel] 600 mg PO HS #28 tab Discontinued Sertraline [Zoloft] 50 mg PO DAILY #14 tab Discharge Medication List QUEtiapine FUMARATE [SEROquel] 600 mg PO HS #28 tab 10/17/17 [Rx] QUEtiapine [SEROquel] 200 mg PO 0900,1600 #28 tab 10/17/17 [Rx] Sertraline HCl [Zoloft] 50 mg PO DAILY #21 tablet 10/17/17 [Rx] Follow up Appointment(s)/Referral(s): [facility] [Outside] - 1 Week None,Stated [Primary Care Provider] - 1-2 days (10/18/17 at 1030 w intake) Discharge Disposition: HOME SELF-CARE
== END 2017-10-17 15:30 | disposition home or self-care (01) | DRG 885 ==
LOC: EC 06:36 → 3MHU 09:46
PROVIDERS: ADMIT Psychiatry & Neurology Psychiatry; ATTEND Psychiatry & Neurology Psychiatry
DX: F25.1 Schizoaffective disorder, depressive type (principal); R45.851 Suicidal ideations; K21.9 Gastro-esophageal reflux disease without esophagitis; G89.29 Other chronic pain; M54.9 Dorsalgia, unspecified; F31.9 Bipolar disorder, unspecified; G43.909 Migraine, unspecified, not intractable, without status migrainosus; K59.00 Constipation, unspecified; F14.90 Cocaine use, unspecified, uncomplicated; F12.90 Cannabis use, unspecified, uncomplicated; W10.9XXA Fall (on) (from) unspecified stairs and steps, initial encounter; F41.9 Anxiety disorder, unspecified; Z87.891 Personal history of nicotine dependence; Z80.3 Family history of malignant neoplasm of breast; Z91.010 Allergy to peanuts; Z91.013 Allergy to seafood; Z91.018 Allergy to other foods; Z79.899 Other long term (current) drug therapy; Z91.14 Patient's other noncompliance with medication regimen; Z86.14 Personal history of Methicillin resistant Staphylococcus aureus infection; Z81.8 Family history of other mental and behavioral disorders
CPT/HCPCS: 80053; 80061; 80306; 82075; 83036; 84443; 85025; 99285

== ENCOUNTER 2017-11-05 03:48 | Emergency (ER) | payer OTHER ==
[2017-11-05 03:57] VITALS: TEMP 97.9
[2017-11-05] MEDS ORDERED: IBUPROFEN 400 MG TAB PO STA (04:15)
--- NOTE | 2017-11-05 04:19 | ED ---
Psych HPI - General Source: patient Mode of arrival: ambulatory - History of Present Illness MD Complaint: suicidal ideation -: days(s) Associated Psychiatric Symptoms: suicidal ideation, auditory hallucinations History of same: Yes Quality: getting worse Improves With: none Worsens With: none Treatments Prior to Arrival: none <Joe Pathak - Last Filed: 11/05/17 04:16> <Grey Ayoub - Last Filed: 11/05/17 09:43> - General Chief Complaint: Psychiatric Symptoms Stated Complaint: Mental Health Time Seen by Provider: 11/05/17 04:05 - Related Data Home Medications Medication Instructions Recorded Confirmed QUEtiapine [SEROquel] 200 mg PO BID@0900,1600 11/05/17 11/05/17 Sertraline HCl [Zoloft] 75 mg PO QAM 11/05/17 11/05/17 Previous Rx's Medication Instructions Recorded QUEtiapine FUMARATE [SEROquel] 600 mg PO HS #28 tab 10/17/17 Allergies Allergy/AdvReac Type Severity Reaction Status Date / Time peanut [Peanut Butter] Allergy Unknown Verified 11/05/17 07:52 tomato Allergy Unknown Verified 11/05/17 07:52 seafood Allergy Unknown Uncoded 11/05/17 03:57 Review of Systems ROS Other: All systems not noted in ROS Statement are negative. Constitutional: Denies: fever, chills Respiratory: Denies: cough, dyspnea Cardiovascular: Denies: chest pain, palpitations Gastrointestinal: Denies: abdominal pain, vomiting, diarrhea Genitourinary: Denies: dysuria Musculoskeletal: Reports: as per HPI, other (Bilateral foot pain) Neurological: Denies: headache, weakness, numbness <Joe Pathak - Last Filed: 11/05/17 04:16> ROS Other: All systems not noted in ROS Statement are negative. <Grey Ayoub - Last Filed: 11/05/17 09:43> ROS Statement: Those systems with pertinent positive or pertinent negative responses have been documented in the HPI. Past Medical History Past Medical History: GERD/Reflux Additional Past Medical History / Comment(s): chronic back pain, migraines, constipation. History of Any Multi-Drug Resistant Organisms: MRSA Date of last positivie culture/infection: 09/16/17 MDRO Source:: AXILLA Past Surgical History: Hernia Repair Additional Past Surgical History / Comment(s): Right inguinal hernia repair Past Anesthesia/Blood Transfusion Reactions: No Reported Reaction Past Psychological History: Anxiety, Bipolar, Depression, Schizophrenia Smoking Status: Former smoker Past Alcohol Use History: None Reported Past Drug Use History: Cocaine, Marijuana - Past Family History Father Additional Family Medical History / Comment(s): Father at age 73 from a motor vehicle accident. Mother Additional Family Medical History / Comment(s): Mom at age 56 from breast cancer with brain tumor and she also had mental health issues. Sister(s) Additional Family Medical History / Comment(s): Patient has 2 sisters with no major medical problems. Brother(s) Additional Family Medical History / Comment(s): Patient has 1 brother that was killed. Patient did not give details. Son(s) Additional Family Medical History / Comment(s): He has one son with no major medical problems. <Joe Pathak - Last Filed: 11/05/17 04:16> General Exam Limitations: no limitations General appearance: alert, in no apparent distress Head exam: Present: atraumatic, normocephalic Eye exam: Present: normal appearance. Absent: scleral icterus, conjunctival injection Respiratory exam: Present: normal lung sounds bilaterally. Absent: respiratory distress, wheezes, rales, rhonchi, stridor Cardiovascular Exam: Present: regular rate, normal rhythm, normal heart sounds. Absent: systolic murmur, diastolic murmur, rubs, gallop GI/Abdominal exam: Present: soft. Absent: tenderness, guarding, rebound Extremities exam: Present: normal inspection, normal capillary refill. Absent: pedal edema, calf tenderness Neurological exam: Present: alert Psychiatric exam: Present: anxious, suicidal ideation. Absent: agitated, flat affect, manic, homicidal ideation Skin exam: Present: warm, dry, intact, normal color. Absent: rash <Joe Pathak - Last Filed: 11/05/17 04:16> Vital Signs 11/05/17 11/05/17 03:52 06:18 Temperature 97.9 F Pulse Rate 74 56 L Respiratory 19 20 Rate Blood Pressure 115/74 124/68 O2 Sat by Pulse 98 97 Oximetry Medical Decision Making <Joe Pathak - Last Filed: 11/05/17 04:16> <Grey Ayoub - Last Filed: 11/05/17 09:43> - Medical Decision Making 67 male who was seen and evaluated here for suicidal and psychiatric evaluation. Patient is deemed safe for follow up with [facility] and can be discharged home (Grey Ayoub) - Lab Data Lab Results 11/05/17 Range/Units 09:05 Urine Opiates Screen Not Detected (NotDetected) Ur Oxycodone Screen Not Detected (NotDetected) Urine Methadone Screen Not Detected (NotDetected) Ur Propoxyphene Screen Not Detected (NotDetected) Ur Barbiturates Screen Not Detected (NotDetected) U Tricyclic Antidepress Not Detected (NotDetected) Ur Phencyclidine Scrn Not Detected (NotDetected) Ur Amphetamines Screen Not Detected (NotDetected) U Methamphetamines Scrn Not Detected (NotDetected) U Benzodiazepines Scrn Not Detected (NotDetected) Urine Cocaine Screen Detected H (NotDetected) U Marijuana (THC) Screen Detected H (NotDetected) Disposition <Joe Pathak - Last Filed: 11/05/17 04:16> Is patient prescribed a controlled substance at d/c from ED?: No <Grey Ayoub - Last Filed: 11/05/17 09:43> Clinical Impression: Schizophrenia, Depression Disposition: HOME SELF-CARE Condition: Good Instructions: Depression (ED) Referrals: Tish Deutsch MD [Primary Care Provider] - 1-2 days
[2017-11-05 06:20] VITALS: BP 124/68; PULSE 56; RESP 20
[2017-11-05 09:38] LABS: Cocaine Screen,Urine Detected (NotDetected); Phencyclidine Screen,Urine Not Detected (NotDetected); Urn Cannabinoid Scrn Detected (NotDetected)
[2017-11-05 09:39] LABS: Amphetamine Screen,Urine Not Detected (NotDetected); Barbiturate Screen,Urine Not Detected (NotDetected); Benzodiazepines Screen,Urine Not Detected (NotDetected); Methadone Screen, Urine Not Detected (NotDetected); Opiate Screen,Urine Not Detected (NotDetected); Oxycodone Screen, Urine Not Detected (NotDetected); Tricyclic Antidepressant,Urine Not Detected (NotDetected)
== END 2017-11-05 09:45 | disposition home or self-care (01) ==
LOC: EC 03:48
DX: F20.9 Schizophrenia, unspecified (principal); F31.9 Bipolar disorder, unspecified; F41.9 Anxiety disorder, unspecified; Z87.891 Personal history of nicotine dependence; Z86.14 Personal history of Methicillin resistant Staphylococcus aureus infection; Z86.69 Personal history of other diseases of the nervous system and sense organs; Z79.899 Other long term (current) drug therapy; Z91.010 Allergy to peanuts; Z91.013 Allergy to seafood; Z91.018 Allergy to other foods
CPT/HCPCS: 80306; 82075; 99285

== ENCOUNTER 2018-02-03 16:01 | Emergency (ER) | payer OTHER ==
[2018-02-03] MEDS ORDERED: MORPHINE SULFATE 4 MG/ML SYRINGE IM STA (17:02)
[2018-02-03] MEDS ORDERED: MORPHINE SULFATE 4 MG/ML SYRINGE IVP STA (17:03)
[2018-02-03] MEDS ORDERED: PHENYLEPHRINE 5 MG, SODIUM CHLORIDE 0.9% (PF) VIAL 9.5 ML INTRA-CAVE PRN ×2 (17:16)
[2018-02-03] MEDS ORDERED: LIDOCAINE 2% INJ 20 MG/ML (20 ML MDV) SQ STA (17:40)
--- NOTE | 2018-02-03 18:02 | ED ---
General Adult HPI <Edil Cardona - Last Filed: 02/03/18 18:33> - General Source: patient, RN notes reviewed Mode of arrival: ambulatory Limitations: no limitations <Artie Irwin - Last Filed: 02/03/18 18:45> - General Chief complaint: Urogenital Stated complaint: Rectum pain Time Seen by Provider: 02/03/18 16:45 - History of Present Illness Initial comments: 58-year-old male presents to the emergency room for a chief complaint of erection for the past 17 hours. Patient states he took a trazodone on accident around 10 PM instead of a Motrin. Patient states he woke up at midnight and noticed he had an erection. Patient states the trazodone had made him tired so he went back to sleep. Patient states he woke up earlier today and decided he needed to come to the emergency department because the pain was severe and priapism was not decreasing. Patient states it is extremely painful. Patient states this has happened previously years ago and had it drained in the emergency department. Patient has no other complaints at this time including shortness of breath, chest pain, abdominal pain, nausea or vomiting, headache, or visual changes. (Artie Irwin) - Related Data Home Medications Medication Instructions Recorded Confirmed QUEtiapine [SEROquel] 200 mg PO BID@0900,1600 11/05/17 02/03/18 Previous Rx's Medication Instructions Recorded QUEtiapine FUMARATE [SEROquel] 600 mg PO HS #28 tab 10/17/17 Allergies Allergy/AdvReac Type Severity Reaction Status Date / Time peanut [Peanut Butter] Allergy Unknown Verified 02/03/18 16:57 tomato Allergy Unknown Verified 02/03/18 16:57 seafood Allergy Unknown Uncoded 11/05/17 03:57 Review of Systems ROS Other: All systems not noted in ROS Statement are negative. <Edil Cardona - Last Filed: 02/03/18 18:33> ROS Other: All systems not noted in ROS Statement are negative. <Artie Irwin - Last Filed: 02/03/18 18:45> ROS Statement: Those systems with pertinent positive or pertinent negative responses have been documented in the HPI. Past Medical History Past Medical History: GERD/Reflux Additional Past Medical History / Comment(s): chronic back pain, migraines, constipation. History of Any Multi-Drug Resistant Organisms: MRSA Date of last positivie culture/infection: 09/16/17 MDRO Source:: AXILLA Past Surgical History: Hernia Repair Additional Past Surgical History / Comment(s): Right inguinal hernia repair Past Anesthesia/Blood Transfusion Reactions: No Reported Reaction Past Psychological History: Anxiety, Bipolar, Depression, Schizophrenia Smoking Status: Current every day smoker Past Alcohol Use History: None Reported Past Drug Use History: Cocaine, Marijuana - Past Family History Father Additional Family Medical History / Comment(s): Father at age 73 from a motor vehicle accident. Mother Additional Family Medical History / Comment(s): Mom at age 56 from breast cancer with brain tumor and she also had mental health issues. Sister(s) Additional Family Medical History / Comment(s): Patient has 2 sisters with no major medical problems. Brother(s) Additional Family Medical History / Comment(s): Patient has 1 brother that was killed. Patient did not give details. Son(s) Additional Family Medical History / Comment(s): He has one son with no major medical problems. <Artie Irwin - Last Filed: 02/03/18 18:45> General Exam Limitations: no limitations General appearance: alert, in no apparent distress Head exam: Present: atraumatic, normocephalic, normal inspection Eye exam: Present: normal appearance. Absent: scleral icterus, conjunctival injection ENT exam: Present: normal exam, mucous membranes moist Neck exam: Present: normal inspection, full ROM. Absent: tenderness, meningismus, lymphadenopathy Respiratory exam: Present: normal lung sounds bilaterally. Absent: respiratory distress, wheezes, rales, rhonchi, stridor Cardiovascular Exam: Present: regular rate, normal rhythm, normal heart sounds. Absent: systolic murmur, diastolic murmur, rubs, gallop, clicks exam: Present: other (Priapism noted). Absent: urethral discharge, scrotal swelling, vertical testicular lie <Artie Irwin - Last Filed: 02/03/18 18:45> Course <Edil Cardona - Last Filed: 02/03/18 18:33> <Artie Irwin - Last Filed: 02/03/18 18:45> Vital Signs 02/03/18 02/03/18 02/03/18 16:25 18:16 18:29 Temperature 97.9 F 98.9 F Pulse Rate 79 79 65 Respiratory 16 20 18 Rate Blood Pressure 138/81 166/101 O2 Sat by Pulse 98 99 98 Oximetry - Reevaluation(s) Reevaluation #1: 02/03/18 18:33 PA supervision: I personally saw and examined the patient. I have reviewed and agree with the PA findings including all diagnostic interpretations treatment plans is written unless otherwise stated I did discuss the case with Dr. Collado who did come in to see the patient and did treat the patient for the priapism. ( Edil Cardona) Medical Decision Making <Edil Cardona - Last Filed: 02/03/18 18:33> <Artie Irwin - Last Filed: 02/03/18 18:45> - Medical Decision Making 58-year-old male presents to the emergency department for a chief complaint of priapism 17 hours. Patient excellently took a trazodone last night which precipitated the priapism. Patient states he has experienced this once in the past in which it was drained in the emergency department. On exam patient does have a painful erection noted. Dr. Collado was able to perform necessary procedure and discussed follow-up with the patient. He will return to the emergency department if he has any worsening symptoms which he his aware of. ( Artie Irwin) Disposition <BrendnaEdil - Last Filed: 02/03/18 18:33> Is patient prescribed a controlled substance at d/c from ED?: No Time of Disposition: 18:36 <Artie Irwin - Last Filed: 02/03/18 18:45> Clinical Impression: Priapism Disposition: HOME SELF-CARE Condition: Good Instructions: Priapism (ED) Additional Instructions: Please follow up with Dr Collado as he indicated to you in 1 week. Take tylenol for pain. Do not take any more trazadone. Apply ice to penis as necessary. Please return to the emergency department if you have any worsening symptoms. Referrals: Tish Deutsch MD [Primary Care Provider] - 1-2 days Tommy Collado MD [STAFF PHYSICIAN] - 1-2 days
--- NOTE | 2018-02-03 18:23 | P.GSCN ---
History of Present Illness Consult date: 02/03/18 History of present illness: This 58-year-old gentleman was having problems sleeping last night. He mistakenly took a trazodone. He developed a priapism. It persisted since 12: 00 last night. Because of increasing pain he came the emergency room this afternoon. He is seen by Dr. Cardona who recognizes problem. He consulted me. The patient is interviewed at the bedside. He is uncomfortable. He has had some morphine. He has no history of this. He has no history of sickle cell anemia. He has no other major illnesses. I suspect this is trazodone-induced priapism. We'll evaluate him along these lines. Review of Systems - Constitutional Reports as per HPI - Genitourinary Reports as per HPI Past Medical History Past Medical History: GERD/Reflux Additional Past Medical History / Comment(s): chronic back pain, migraines, constipation. History of Any Multi-Drug Resistant Organisms: MRSA Year Discovered:: 09/16/17 MDRO Source:: AXILLA Past Surgical History: Hernia Repair Additional Past Surgical History / Comment(s): Right inguinal hernia repair Past Anesthesia/Blood Transfusion Reactions: No Reported Reaction Past Psychological History: Anxiety, Bipolar, Depression, Schizophrenia Smoking Status: Current every day smoker Past Alcohol Use History: None Reported Past Drug Use History: Cocaine, Marijuana - Past Family History Father Additional Family Medical History / Comment(s): Father at age 73 from a motor vehicle accident. Mother Additional Family Medical History / Comment(s): Mom at age 56 from breast cancer with brain tumor and she also had mental health issues. Sister(s) Additional Family Medical History / Comment(s): Patient has 2 sisters with no major medical problems. Brother(s) Additional Family Medical History / Comment(s): Patient has 1 brother that was killed. Patient did not give details. Son(s) Additional Family Medical History / Comment(s): He has one son with no major medical problems. Medications and Allergies Home Medications Medication Instructions Recorded Confirmed Type QUEtiapine FUMARATE [SEROquel] 600 mg PO HS #28 tab 10/17/17 02/03/18 Rx QUEtiapine [SEROquel] 200 mg PO BID@0900,1600 05/16/18 08/14/18 History Allergies Allergy/AdvReac Type Severity Reaction Status Date / Time peanut [Peanut Butter] Allergy Unknown Verified 02/03/18 16:57 tomato Allergy Unknown Verified 02/03/18 16:57 seafood Allergy Unknown Uncoded 11/05/17 03:57 Surgical - Exam Vital Signs Temp Pulse Resp BP Pulse Ox 97.9 F 79 16 138/81 98 02/03/18 16:25 02/03/18 16:25 02/03/18 16:25 02/03/18 16:25 02/03/18 16:25 - General well developed, well nourished, moderate distress - Eyes PERRL - ENT no hearing loss - Neck no masses - Respiratory normal expansion, normal respiratory effort - Cardiovascular Rhythm: regular - Abdomen Abdomen: soft, non tender - Integumentary no rash, no growths - Neurologic normal coordination, normal sensation - Musculoskeletal normal posture - Psychiatric oriented to time, oriented to person, oriented to place, speech is normal, memory intact Assessment and Plan Assessment: Impression: Drug-induced low-flow priapism Recommendations: The patient will have a penile block, penile irrigation and injection of phenylephrine.
--- NOTE | 2018-02-03 18:27 | P.PCN ---
Date of Procedure: 02/03/18 Preoperative Diagnosis: Priapism, drug-induced Postoperative Diagnosis: Low-flow priapism secondary to trazodone Procedure(s) Performed: Penile block, corporal irrigation, phenylephrine injection Anesthesia: other (15 mL of a 2% Xylocaine penile block, 2 mL's of a mixture of 9-1/2 mL of saline and 0.5 mL of a concentration phenylephrine, 10 mg per mL) Surgeon: Tommy Collado Pathology: none sent Condition: stable Indications for Procedure: The patient is 58 and has an 18 hour priapism after taking trazodone Description of Procedure: The patient was prepped and draped sterilely. 15 mL of a 2% Xylocaine block is administered for penile numbing. I prepped the right corpora and then introduced after adequate anesthesia an 18-gauge needle into the corpora cavernosum. I withdraw probably 50 mL of old dark blood. I then injected into the left corpora 2 mL of a mixture of 90 mL of saline and 0.5 mL of a mixture of 10 mg of phenylephrine in 1 mL of saline. After this the erection detumesced and stayed in a flaccid state. I placed ice on it and observed it for over 30 minutes and it remained in that state. The patient be observed another 30 minutes and discharged home. He'll follow-up in the office in one week. He's been instructed not to take anymore trazodone. He should place ice on the penis today. He can take Tylenol for pain.
[2018-02-03] MEDS ORDERED: PHENYLEPHRINE-0.9% NACL SYG 1 MG/10 ML SYRINGE ONE (18:35)
[2018-02-03 18:36] VITALS: RESP 18
[2018-02-03 19:07] VITALS: BP 158/81; PULSE 90; TEMP 98
== END 2018-02-03 19:07 | disposition home or self-care (01) ==
LOC: EC 16:01
DX: N48.33 Priapism, drug-induced (principal); T43.215A Adverse effect of selective serotonin and norepinephrine reuptake inhibitors, initial encounter; F31.9 Bipolar disorder, unspecified; F20.9 Schizophrenia, unspecified; F17.200 Nicotine dependence, unspecified, uncomplicated; Z86.14 Personal history of Methicillin resistant Staphylococcus aureus infection; Z98.890 Other specified postprocedural states; Z79.899 Other long term (current) drug therapy; Z91.010 Allergy to peanuts; Z91.013 Allergy to seafood; Z91.018 Allergy to other foods
CPT/HCPCS: 99283; 54220; 96374; J2001; J2270; J2370 ×2

== ENCOUNTER 2018-08-24 23:40 | Emergency (ER) | payer OTHER ==
[2018-08-24 23:45] VITALS: RESP 20
--- NOTE | 2018-08-25 00:18 | ED ---
Back Pain HPI - General Chief Complaint: Back Pain/Injury Stated Complaint: Back Injury Time Seen by Provider: 08/24/18 23:48 Source: patient Limitations: no limitations - History of Present Illness Initial Comments: This patient is a 58-year-old man who presents to be evaluated for neck and low back pain after he had a slip and fall outside proximally one hour ago. The patient states that he slipped on some ice and fell landing on his low back. He then fell backward and also hit his neck. Patient denies any other injuries. He is not having pain anywhere else. Related to the neck and back pain he denies radiation of the pain. There is no pain to the extremities. No weakness or numbness. Furthermore patient denies head trauma or loss consciousness. MD Complaint: fall Onset/Timin -: hour(s) Place: street Radiation: none Severity: severe Quality: sharp, aching Consistency: constant Improves With: none Worsens With: none Context: fall Associated Symptoms: denies other symptoms - Related Data Home Medications Medication Instructions Recorded Confirmed QUEtiapine [SEROquel] 200 mg PO BID@0900,1600 11/05/17 07/14/18 Sertraline [Zoloft] 50 mg PO DAILY 07/14/18 07/14/18 hydrOXYzine PAMOATE [Vistaril] 25 mg PO TID 07/14/18 07/14/18 Previous Rx's Medication Instructions Recorded QUEtiapine FUMARATE [SEROquel] 600 mg PO HS #28 tab 10/17/17 Ibuprofen 800 mg PO TID #20 tablet 08/25/18 Methocarbamol [Robaxin-750] 750 mg PO TID PRN #30 tablet 08/25/18 Allergies Allergy/AdvReac Type Severity Reaction Status Date / Time peanut [Peanut Butter] Allergy Unknown Verified 08/24/18 23:45 tomato Allergy Unknown Verified 08/24/18 23:45 seafood Allergy Unknown Uncoded 08/24/18 23:45 Review of Systems ROS Statement: Those systems with pertinent positive or pertinent negative responses have been documented in the HPI. ROS Other: All systems not noted in ROS Statement are negative. Constitutional: Denies: weakness Eyes: Denies: vision change Respiratory: Denies: dyspnea Cardiovascular: Denies: chest pain Gastrointestinal: Denies: abdominal pain, vomiting Musculoskeletal: Reports: as per HPI, back pain Neurological: Denies: headache, weakness, numbness, paresthesias Past Medical History Past Medical History: GERD/Reflux Additional Past Medical History / Comment(s): chronic back pain, migraines, constipation. History of Any Multi-Drug Resistant Organisms: MRSA Date of last positivie culture/infection: 09/16/17 MDRO Source:: AXILLA Past Surgical History: Hernia Repair Additional Past Surgical History / Comment(s): Right inguinal hernia repair Past Anesthesia/Blood Transfusion Reactions: No Reported Reaction Past Psychological History: Anxiety, Bipolar, Depression, Schizophrenia Smoking Status: Current every day smoker Past Alcohol Use History: None Reported Past Drug Use History: Cocaine, Marijuana - Past Family History Father Additional Family Medical History / Comment(s): Father at age 73 from a motor vehicle accident. Mother Additional Family Medical History / Comment(s): Mom at age 56 from breast cancer with brain tumor and she also had mental health issues. Sister(s) Additional Family Medical History / Comment(s): Patient has 2 sisters with no major medical problems. Brother(s) Additional Family Medical History / Comment(s): Patient has 1 brother that was killed. Patient did not give details. Son(s) Additional Family Medical History / Comment(s): He has one son with no major medical problems. General Exam Limitations: no limitations General appearance: alert, in no apparent distress Head exam: Present: atraumatic, normocephalic Eye exam: Present: normal appearance, PERRL, EOMI. Absent: scleral icterus, conjunctival injection Respiratory exam: Present: normal lung sounds bilaterally. Absent: respiratory distress, wheezes, rales, rhonchi, stridor Cardiovascular Exam: Present: regular rate, normal rhythm, normal heart sounds GI/Abdominal exam: Present: soft. Absent: tenderness Neurological exam: Present: alert, oriented X3. Absent: motor sensory deficit Course Vital Signs 08/24/18 23:42 Temperature 98 F Pulse Rate 92 Respiratory 20 Rate Blood Pressure 123/84 O2 Sat by Pulse 99 Oximetry Disposition Clinical Impression: Strain of lumbar region, Cervical strain Disposition: HOME SELF-CARE Condition: Fair Instructions (If sedation given, give patient instructions): Acute Low Back Pain (ED), Cervical Strain (DC) Prescriptions: Ibuprofen 800 mg PO TID #20 tablet Methocarbamol [Robaxin-750] 750 mg PO TID PRN #30 tablet PRN Reason: pain Is patient prescribed a controlled substance at d/c from ED?: No Referrals: None,Stated [Primary Care Provider] - 1-2 days
--- NOTE | 2018-08-25 01:10 | XR ---
EXAM: XR Lumbar Spine, 2 or 3 Views CLINICAL HISTORY: fall TECHNIQUE: Frontal and lateral views of the lumbar spine. COMPARISON: No relevant prior studies available. FINDINGS: Vertebrae: Unremarkable. No acute fracture. Normal alignment. Disc spaces: No acute findings. No significant narrowing. Soft tissues: Unremarkable. IMPRESSION: Normal lumbar spine x-rays.
--- NOTE | 2018-08-25 01:31 | CT ---
EXAM: CT Cervical Spine Without Intravenous Contrast CLINICAL HISTORY: fall TECHNIQUE: Axial computed tomography images of the cervical spine without intravenous contrast. CTDI is 12.2 mGy and DLP is 360.7 mGy-cm. This CT exam was performed using one or more of the following dose reduction techniques: automated exposure control, adjustment of the mA and/or kV according to patient size, and/or use of iterative reconstruction technique. Coronal and sagittal reformatted images were created and reviewed. COMPARISON: No relevant prior studies available. FINDINGS: Vertebrae: Unremarkable. No acute fracture. Discs/spinal canal/neural foramina: No acute findings. No spinal canal stenosis. Soft tissues: Unremarkable. IMPRESSION: Normal cervical spine CT.
[2018-08-25] MEDS ORDERED: IBUPROFEN 400 MG TAB PO STA (02:07)
[2018-08-25] MEDS ORDERED: HYDROcodone/APAP 5-325MG 1 EACH TAB PO STA (02:07)
[2018-08-25 03:02] VITALS: BP 158/95; PULSE 68; TEMP 97.5
== END 2018-08-25 03:03 | disposition home or self-care (01) ==
LOC: EC 23:40
DX: S16.1XXA Strain of muscle, fascia and tendon at neck level, initial encounter (principal); S39.012A Strain of muscle, fascia and tendon of lower back, initial encounter; F31.9 Bipolar disorder, unspecified; F20.9 Schizophrenia, unspecified; F41.9 Anxiety disorder, unspecified; F17.200 Nicotine dependence, unspecified, uncomplicated; Z79.899 Other long term (current) drug therapy; Z91.010 Allergy to peanuts; Z91.013 Allergy to seafood; Z91.018 Allergy to other foods; W00.0XXA Fall on same level due to ice and snow, initial encounter
CPT/HCPCS: 72100; 72125; 99284; L0120

== ENCOUNTER 2019-06-28 22:05 | Observation (INO) | payer OTHER ==
[2019-06-28] MEDS ORDERED: LORazepam 2 MG/ML INJ IV STA (22:30)
--- NOTE | 2019-06-28 22:35 | XR ---
EXAMINATION TYPE: XR chest 2V DATE OF EXAM: 06/28/2019 COMPARISON: 07/14/2018 HISTORY: Chest pain TECHNIQUE: 2 views FINDINGS: Heart is normal. Lungs are clear of consolidation. There is no heart failure. There are no hilar masses. Bony thorax is intact. There are chest leads. IMPRESSION: No active cardiopulmonary disease. No change.
[2019-06-28 22:36] LABS: Basophils # (A) 0.1 k/uL (0-0.2); Basophils % (A) 1 %; Eosinophils # (A) 0.1 k/uL (0-0.7); Eosinophils % (A) 2 %; HGB 13.1 gm/dL (13.0-17.5); Lymphocytes # (A) 2.4 k/uL (1.0-4.8); Lymphocytes % (A) 35 %; MCH 29.9 pg (25.0-35.0); MCV 93.5 fL (80.0-100.0); Mean Platelet Volume 8.2; Monocytes # (A) 0.4 k/uL (0-1.0); Monocytes % (A) 6 %; Neutrophils # (A) 3.8 k/uL (1.3-7.7); Neutrophils % (A) 55 %; Platelet Count 348 k/uL (150-450); RBC 4.39 m/uL (4.30-5.90); RDW 14.6 % (11.5-15.5)
--- NOTE | 2019-06-28 22:39 | ED ---
Chest Pain HPI - General Chief Complaint: Chest Pain Stated Complaint: Chest Pain Time Seen by Provider: 06/28/19 22:12 Source: patient, RN notes reviewed, old records reviewed Mode of arrival: ambulatory Limitations: no limitations - History of Present Illness Initial Comments: This is a 59-year-old male who presents with chest pain positive Trejo's sign. History of heart disease history of similar pain before. Symptoms began tonight nursing travel history or sick contacts. Patient denies diaphoresis but does admit to some shortness of breath no cough no recent fever. No no travel history of sick contacts. MD Complaint: chest pain -: hour(s) Onset: during rest Pain Location: substernal, left chest Pain Radiation: none Severity: moderate Severity scale (1-10): 4 Quality: aching, heaviness Consistency: constant Improves With: nothing Worsens With: nothing Anginal Symptoms: dyspnea Other Symptoms: cough Treatments Prior to Arrival: none - Related Data Home Medications Medication Instructions Recorded Confirmed No Known Home Medications 06/28/19 06/28/19 Allergies Allergy/AdvReac Type Severity Reaction Status Date / Time peanut [Peanut Butter] Allergy Unknown Verified 06/28/19 23:02 tomato Allergy Unknown Verified 06/28/19 23:02 seafood Allergy Unknown Uncoded 06/28/19 22:08 Review of Systems ROS Statement: Those systems with pertinent positive or pertinent negative responses have been documented in the HPI. ROS Other: All systems not noted in ROS Statement are negative. EKG Findings - EKG Comments: EKG Findings:: EKG shows sinus rhythm at 75, AZ 150, QRS 90, QTC 437 Past Medical History Past Medical History: GERD/Reflux Additional Past Medical History / Comment(s): chronic back pain, migraines, constipation. History of Any Multi-Drug Resistant Organisms: MRSA Date of last positivie culture/infection: 09/16/17 MDRO Source:: AXILLA Past Surgical History: Hernia Repair Additional Past Surgical History / Comment(s): Right inguinal hernia repair Past Anesthesia/Blood Transfusion Reactions: No Reported Reaction Past Psychological History: Anxiety, Bipolar, Depression, Schizophrenia Smoking Status: Current every day smoker Past Alcohol Use History: None Reported Past Drug Use History: Cocaine, Marijuana - Past Family History Father Additional Family Medical History / Comment(s): Father at age 73 from a motor vehicle accident. Mother Additional Family Medical History / Comment(s): Mom at age 56 from breast cancer with brain tumor and she also had mental health issues. Sister(s) Additional Family Medical History / Comment(s): Patient has 2 sisters with no major medical problems. Brother(s) Additional Family Medical History / Comment(s): Patient has 1 brother that was killed. Patient did not give details. Son(s) Additional Family Medical History / Comment(s): He has one son with no major medical problems. General Exam Limitations: no limitations General appearance: alert, in no apparent distress Head exam: Present: atraumatic, normocephalic, normal inspection Eye exam: Present: normal appearance, PERRL, EOMI. Absent: scleral icterus, conjunctival injection, periorbital swelling ENT exam: Present: normal exam, mucous membranes moist Neck exam: Present: normal inspection. Absent: tenderness, meningismus, lymphadenopathy Respiratory exam: Present: normal lung sounds bilaterally. Absent: respiratory distress, wheezes, rales, rhonchi, stridor Cardiovascular Exam: Present: regular rate, normal rhythm, normal heart sounds. Absent: systolic murmur, diastolic murmur, rubs, gallop, clicks GI/Abdominal exam: Present: soft, normal bowel sounds. Absent: distended, tenderness, guarding, rebound, rigid Extremities exam: Present: normal inspection, full ROM, normal capillary refill. Absent: tenderness, pedal edema, joint swelling, calf tenderness Back exam: Present: normal inspection Neurological exam: Present: alert, oriented X3, CN II-XII intact Psychiatric exam: Present: normal affect, normal mood Skin exam: Present: warm, dry, intact, normal color. Absent: rash Course Vital Signs 06/28/19 06/28/19 06/28/19 22:06 22:16 23:15 Temperature 97.8 F Pulse Rate 83 77 73 Respiratory 16 26 H Rate Blood Pressure 130/79 123/83 O2 Sat by Pulse 98 99 Oximetry 06/28/19 06/28/19 06/29/19 23:27 23:39 00:18 Temperature Pulse Rate 73 73 74 Respiratory 32 H 16 Rate Blood Pressure 123/87 130/89 O2 Sat by Pulse 99 100 Oximetry - Reevaluation(s) Reevaluation #1: 06/29/19 01:11 Medical records reviewed Reevaluation #2: 06/29/19 01:11 patient still does have chest pain today - Consultations Consultation #1: spoke w Dr Michelle who is ok for admission Chest Pain MDM - MDM 59 male here for evaluation comes in with chest. CT negative for PE but bilateral pulmonary edema and infiltrates. Racially cover for possible atypical pneumonia as well as diuresis for CHF and chest pain observation Critical Care Time Critical Care Time: Yes Total Critical Care Time: 31 Disposition Clinical Impression: Chest pain, Acute exacerbation of COPD with asthma, CHF (congestive heart failure) Disposition: ADMITTED IP TO THIS HOSP Condition: Undetermined Is patient prescribed a controlled substance at d/c from ED?: No Referrals: None,Stated [REFERRING] - 1-2 days
[2019-06-28 22:42] LABS: ALT 41 U/L (4-49); AST 55 U/L (17-59); African American GFR (CKD) >90 (>60 ml/min/1.73 sqM); Albumin 4.2 g/dL (3.5-5.0); Alkaline Phosphatase 106 U/L (38-126); Anion Gap 10 mmol/L; Blood Urea Nitrogen 9 mg/dL (9-20); Calcium 9.7 mg/dL (8.4-10.2); Carbon Dioxide 22 mmol/L (22-30); Chloride 110 mmol/L (98-107); Glucose 91 mg/dL (74-99); Magnesium 1.9 mg/dL (1.6-2.3); Non-African American GFR(CKD) >90 (>60 ml/min/1.73 sqM); Potassium 3.8 mmol/L (3.5-5.1); Sodium 142 mmol/L (137-145); Total Bilirubin 0.6 mg/dL (0.2-1.3); Total Protein 7.4 g/dL (6.3-8.2)
[2019-06-28 22:54] LABS: INR 0.9 (<1.2); Partial Thromboplastin Time 23.2 sec (22.0-30.0); Prothrombin Time 9.8 sec (9.0-12.0)
[2019-06-28 23:07] LABS: D-Dimer 0.62 mg/L FEU (<0.60)
[2019-06-28] MEDS ORDERED: DEXAMETHASONE SOD PHOSPHATE 10 MG/ML 1 ML VIAL IV STA (23:09)
[2019-06-28] MEDS ORDERED: SODIUM CHLORIDE 0.9% 1,000 ML IV STA (23:09)
[2019-06-28] MEDS ORDERED: IPRATROPIUM-ALBUTEROL 3 ML NEB INHALATION STA (23:09)
[2019-06-29] MEDS ORDERED: HEPARIN SODIUM,PORCINE 5,000 UNIT/ML 1 ML VIAL IV PRN (00:56)
[2019-06-29] MEDS ORDERED: NITROGLYCERIN SL TABS 0.4 MG TAB SUBLINGUAL PRN (00:56)
[2019-06-29] MEDS ORDERED: ASPIRIN 81 MG PO STA (00:56)
[2019-06-29] MEDS ORDERED: HEPARIN SODIUM,PORCINE 5,000 UNIT/ML 1 ML VIAL IV ONE (00:56)
[2019-06-29] MEDS ORDERED: MORPHINE SULFATE 4 MG/ML SYRINGE IV PRN (00:56)
[2019-06-29] MEDS ORDERED: HEPARIN SOD,PORK IN 0.45% NACL 25,000 UNIT in 0.45% NACL 1 250ML.BAG IV SCH (01:00)
--- NOTE | 2019-06-29 01:03 | CT ---
EXAMINATION TYPE: CT angio chest DATE OF EXAM: 06/29/2019 COMPARISON: None HISTORY: Patient presents with elevated d-dimer. CT DLP: 344.8 mGycm Automated exposure control for dose reduction was used. CONTRAST: Performed with IV Contrast, patient injected with 70mL mL of Isovue 370. There are 3-D post processed images. Thyroid gland is enlarged. There is no mediastinal adenopathy. Thoracic aorta appears intact. There i s no aneurysm or dissection. There are no hilar masses. There is normal contrast opacification of the pulmonary arteries. There are no filling defects. There is patchy pulmonary interstitial edema in the mid and lower lung ruano. There is no evidence o f pulmonary mass. There is no pleural effusion. The bony thorax is intact. IMPRESSION: Patchy bilateral pulmonary interstitial edema. No evidence of pulmonary mass. No evidence of pulmonary embolism.
[2019-06-29] MEDS ORDERED: FUROSEMIDE 10 MG/ML 4 ML VIAL IV STA (01:10)
[2019-06-29] MEDS ORDERED: AZITHROMYCIN 500 MG in SODIUM CHLORIDE 0.9% 250 ML IVPB ONE (01:30)
[2019-06-29] MEDS: SODIUM CHLORIDE 0.9% 1,000 ML IV SCH ×3 (03:21→20:07)
[2019-06-29 04:22] LABS: Mean Platelet Volume 8.6; Platelet Count 355 k/uL (150-450)
[2019-06-29] MEDS ORDERED: methylPREDNISolone SOD SUCCI 125 MG/2 ML VIAL IV SCH (06:00)
--- NOTE | 2019-06-29 06:15 | P.HPIM ---
History of Present Illness H&P Date: 06/29/19 Chief Complaint: Chest pain The patient is a 59-year-old -K[place] male the past with a medical history of schizoaffective disorder, cocaine and cannabis use, GERD and chronic back pain who presents to the ER with chief complaint of chest pain. The patient reports substernal 9/10 sharp intermittent chest pain with radiation to his back that began at rest while he was watching TV yesterday. The patient reports some diaphoresis and nausea but denies any vomiting. The patient does report some associated shortness of breath, also reports a nonproductive cough for the last 7 days, he does have a smoking history and also admitted to using cocaine 2 days ago. The patient denies any significant alcohol use, but does have some right upper quadrant abdominal pain. He denies any subjective fevers or chills or night sweats. He reports a family history of her brother who at age 58 of a heart attack. In the ER the patient had a comprehensive workup, EKG showed sinus mechanism without suggestion of acute ischemia, troponin orders negative at .027, .029, d- dimer elevated at 0.62. Chest x-ray showed no acute clinic pulmonary disease, CT of the chest showed patchy bilateral pulmonary interstitial edema and no evidence of pulmonary mass and no evidence of pulmonary embolism. The patient was given aspirin, Decadron, Ativan a breathing treatment, and started on heparin drip and recommended for observation to rule out ACS Review of Systems Pertinent positives per HPI all other review of systems are otherwise negative Past Medical History Past Medical History: GERD/Reflux Additional Past Medical History / Comment(s): chronic back pain, migraines, constipation. History of Any Multi-Drug Resistant Organisms: MRSA Date of last positivie culture/infection: 09/16/17 MDRO Source:: AXILLA Past Surgical History: Hernia Repair Additional Past Surgical History / Comment(s): Right inguinal hernia repair Past Anesthesia/Blood Transfusion Reactions: No Reported Reaction Past Psychological History: Anxiety, Bipolar, Depression, Schizophrenia Smoking Status: Current every day smoker Past Alcohol Use History: None Reported Past Drug Use History: Cocaine, Marijuana - Past Family History Father Additional Family Medical History / Comment(s): Father at age 73 from a motor vehicle accident. Mother Additional Family Medical History / Comment(s): Mom at age 56 from breast cancer with brain tumor and she also had mental health issues. Sister(s) Additional Family Medical History / Comment(s): Patient has 2 sisters with no major medical problems. Brother(s) Additional Family Medical History / Comment(s): Patient has 1 brother that was killed. Patient did not give details. Son(s) Additional Family Medical History / Comment(s): He has one son with no major medical problems. Medications and Allergies Home Medications Medication Instructions Recorded Confirmed Type No Known Home Medications 06/28/19 06/28/19 History Allergies Allergy/AdvReac Type Severity Reaction Status Date / Time peanut [Peanut Butter] Allergy Unknown Verified 06/28/19 23:02 tomato Allergy Unknown Verified 06/28/19 23:02 seafood Allergy Unknown Uncoded 06/28/19 22:08 Physical Exam Vitals: Vital Signs Temp Pulse Resp BP Pulse Ox 06/29/19 03:17 98.7 F 80 16 127/84 97 06/29/19 00:18 74 16 130/89 100 06/28/19 23:39 73 32 H 123/87 99 06/28/19 23:27 73 06/28/19 23:15 73 06/28/19 22:16 77 26 H 123/83 99 06/28/19 22:06 97.8 F 83 16 130/79 98 Intake and Output 06/28/19 06/28/19 06/29/19 14:59 22:59 06:59 Output Total 1800 Balance -1800 Output: Urine 1800 Other: # Voids 4 Weight 81.647 kg Constitutional: No acute distress, conversant, pleasant Eyes: Anicteric sclerae, moist conjunctiva, no lid-lag, PERRLA ENMT: NC/AT,Oropharynx clear, no erythema, exudates Neck:Supple, FROM, no masses, or JVD, No carotid bruits; No thyromegaly Lungs: Clear to auscultation, Clear to percussion, Normal respiratory effort, no accessory muscle use Cardiovascular: Heart regular in rate and rhythm, No murmurs, gallops, or rubs no peripheral edema Abdominal: Positive Trejo's sign, nom distended, no guarding, no rebound or rigidity, Normoactive bowel sounds No hepatomegaly, No splenomegaly, No palpable mass No abdominal wall hernia noted Skin: Normal temperature, tone, texture, turgor, No induration No subcutaneous nodules, No rash, lesions, No ulcers Extremities:No digital cyanosis No clubbing, Pedal pulses intact and symmetrical Radial pulses intact and symmetrical Normal gait and station, No calf tenderness Psychiatric: Alert and oriented to person, place and time, flat affect Neuro: Muscles Strength 5/5 in all 4 extremities, Sensation to light touch yamile sly present throughout, Cranial nerves II-XII grossly intact. No focal sensory deficits Results CBC & Chem 7: 06/29/19 03:59 06/28/19 22:15 Labs: Abnormal Lab Results - Last 24 Hours (Table) 06/28/19 06/28/19 Range/Units 22:15 22:15 D-Dimer 0.62 H (<0.60) mg/L FEU Chloride 110 H (98-107) mmol/L Assessment and Plan Assessment: Atypical chest pain Schizoaffective disorder depressed type Acute Bronchitis History of cocaine use disorder Abdominal pain GERD Chronic back pain History of cannabis use disorder Plan: The patient is placed in observation anticipate a less than 2 midnight stay after presenting with atypical chest pain but only risk factors being smoking, family history of coronary disease and age. The patient's discomfort persists despite routine chest pain orders aspirin and nitroglycerin, the patient was to have elevated blood pressure diastolically. CTA of the chest did show patchy bilateral pulmonary interstitial edema the patient was started on IV diuretics, we'll check a NT proBNP and a UDS. This possible of the chest discomfort could be secondary to coronary vasospasm induced by cocaine use, we'll discontinue his IV steroids and IV azithromycin and continue oral azithromycin. Will order an echocardiogram, cardiology consultation, follow-up his lipid panel and third set of cardiac enzymes. We'll continue to follow this patient's clinical course CODE STATUS: Full code Discussed plan of care with: ER physician and nurse and the patient Anticipated discharge place: Home
[2019-06-29 07:06] LABS: Amphetamine Screen,Urine Not Detected (NotDetected); Barbiturate Screen,Urine Not Detected (NotDetected); Benzodiazepines Screen,Urine Not Detected (NotDetected); Cocaine Screen,Urine Detected (NotDetected); Methadone Screen, Urine Not Detected (NotDetected); Opiate Screen,Urine Not Detected (NotDetected); Oxycodone Screen, Urine Not Detected (NotDetected); Phencyclidine Screen,Urine Not Detected (NotDetected); Tricyclic Antidepressant,Urine Not Detected (NotDetected); Urn Cannabinoid Scrn Detected (NotDetected)
[2019-06-29] MEDS: IPRATROPIUM-ALBUTEROL 3 ML NEB INHALATION SCH ×4 (07:39→21:00)
[2019-06-29] MEDS: ATORVASTATIN 80 MG TAB PO SCH (08:06)
[2019-06-29] MEDS: METOPROLOL TARTRATE 25 MG TAB PO SCH ×2 (08:06→20:06)
--- NOTE | 2019-06-29 08:33 | US ---
EXAMINATION TYPE: US abdomen limited DATE OF EXAM: 06/29/2019 COMPARISON: NONE CLINICAL HISTORY: Positive McMurphy sign. patient sleeping during exam, abd pain EXAM MEASUREMENTS: Liver Length: 16.2 cm Gallbladder Wall: 0.5 cm CBD: 0.5 cm Right Kidney: 9.7 x 4.8 x 5.0 cm Pancreas: not seen due to bowel gas Liver: intercostal imaging only, wnl Gallbladder: thickened gb wall with anterior echogenic foci Evidence for sonographic Trejo's sign: yes CBD: wnl Right Kidney: wnl IMPRESSION: Mild gallbladder wall thickening is seen with echogenic focus appearing within the wall o f the gallbladder. Segmental adenomyomatosis can be considered. Although the sonographic Trejo's sig n is positive the common bile duct is nonenlarged. The gallbladder is not enlarged and there is no pe richolecystic fluid. No convincing sonographic evidence of acute cholecystitis.
[2019-06-29] MEDS ORDERED: FUROSEMIDE 10 MG/ML 4 ML VIAL IV SCH (09:00)
[2019-06-29] MEDS ORDERED: KETOROLAC 30 MG/ML 1 ML VIAL IVP STA (10:21)
[2019-06-29] MEDS ORDERED: MAG HYDROX/AL HYDROX/SIMETH 30 ML, HYOSCYAMINE ELIXIR 10 ML, LIDOCAINE VISCOUS 2% 10 ML PO ONE ×3 (10:45)
[2019-06-29 11:15] LABS: ALT 40 U/L (4-49); African American GFR (CKD) >90 (>60 ml/min/1.73 sqM); Albumin 4.5 g/dL (3.5-5.0); Anion Gap 12 mmol/L; Blood Urea Nitrogen 14 mg/dL (9-20); Calcium 9.5 mg/dL (8.4-10.2); Carbon Dioxide 23 mmol/L (22-30); Chloride 105 mmol/L (98-107); Glucose 174 mg/dL (74-99); Non-African American GFR(CKD) >90 (>60 ml/min/1.73 sqM); Sodium 140 mmol/L (137-145); Total Bilirubin 1.2 mg/dL (0.2-1.3); Total Protein 7.9 g/dL (6.3-8.2)
[2019-06-29 11:18] LABS: AST 54 U/L (17-59); Alkaline Phosphatase 104 U/L (38-126); Potassium 4.3 mmol/L (3.5-5.1)
--- NOTE | 2019-06-29 12:33 | ECHOF ---
Referral Reason:Atypical chest pain MEASUREMENTS -------- HEIGHT: 170.2 cm WEIGHT: 81.6 kg BP: IVSd: 1.1 cm (0.6 - 1.1) LVIDd: 3.6 cm (3.9 - 5.3) LVPWd: 1.4 cm (0.6 - 1.1) IVSs: 1.6 cm LVIDs: 1.9 cm LVPWs: 2.0 cm LAESV Index (A-L): 19.96 ml/m Ao Diam: 3.3 cm (2.0 - 3.7) AV Cusp: 2.6 cm (1.5 - 2.6) LA Diam: 3.1 cm (2.7 - 3.8) MV EXCURSION: 23.254 mm (> 18.000) MV EF SLOPE: 125 mm/s (70 - 150) EPSS: 0.5 cm MV E Jorge: 0.44 m/s MV DecT: 197 ms MV A Jorge: 0.53 m/s MV E/A Ratio: 0.83 RAP: 5.00 mmHg RVSP: 19.65 mmHg TAPSE: 28.81 mm FINDINGS -------- Sinus rhythm. This was a technically good study. The left ventricular size is normal. There is mild concentric left ventricular hypertrophy. Overa ll left ventricular systolic function is normal with, an EF between 55 - 60 %. The diastolic fillin g pattern is normal for the age of the patient 5.05. The right ventricle is normal in size. The right ventricular systolic function is normal. The left atrial size is normal. Normal LA size by volume 22+/-6 ml/m2. The right atrial size is normal. Interatrial and interventricular septum intact. The aortic valve is trileaflet and appears structurally normal. The mitral valve is normal. There is trace mitral regurgitation. The tricuspid valve appears structurally normal. Trace tricuspid regurgitation present. Right humza tricular systolic pressure is normal at < 35 mmHg. There is no pulmonic regurgitation present. The aortic root size is normal. Normal inferior vena cava with normal inspiratory collapse consistent with estimated right atrial pre ssure of 5 mmHg. There is no pericardial effusion. CONCLUSIONS -------- 1. Sinus rhythm. 2. This was a technically good study. 3. The left ventricular size is normal. 4. There is mild concentric left ventricular hypertrophy. 5. Overall left ventricular systolic function is normal with, an EF between 55 - 60 %. 6. The diastolic filling pattern is normal for the age of the patient 5.05 7. The right ventricle is normal in size. 8. The right ventricular systolic function is normal. 9. The left atrial size is normal. 10. Normal LA size by volume 22+/-6 ml/m2. 11. The right atrial size is normal. 12. Interatrial and interventricular septum intact. 13. The aortic valve is trileaflet and appears structurally normal. 14. The mitral valve is normal. 15. There is trace mitral regurgitation. 16. The tricuspid valve appears structurally normal. 17. Trace tricuspid regurgitation present. 18. Right ventricular systolic pressure is normal at < 35 mmHg. 19. There is no pulmonic regurgitation present. 20. The aortic root size is normal. 21. Normal inferior vena cava with normal inspiratory collapse consistent with estimated right atrial pressure of 5 mmHg. 22. There is no pericardial effusion. ADMINISTRATIVE HEARING OFFICER: Dalia Hernandez RDCS
--- NOTE | 2019-06-29 14:48 | P.CRDCN ---
History of Present Illness Consult date: 06/29/19 Requesting physician: Davin Michelle Consult reason: chest pain Chief complaint: Chest pain History of present illness: 's is a 59-year-old gentleman with no prior documented history of hypertension, no diabetes, no hyperlipidemia, patient does state that he had some heart issues about 20 years ago but is unsure exactly of what they were. He presents to the hospital on this occasion with symptoms of midsternal chest discomfort which she describes as a sharp pain in the center of his chest, worsens with deep breathing. He states that he's been having these symptoms off and on for the past couple of days, the time of my examination he continues to complain of pain. Chest x-ray on presentation here was normal. EKG showed normal sinus rhythm with no acute changes. CTA of the chest showed patchy bilateral pulmonary interstitial edema, no evidence of a pulmonary embolism. Ultrasound of the abdomen showed mild gallbladder wall thickening, segmental LAD no myometrial stenosis can be considered. Gallbladder is not enlarged. EKG showed normal sinus rhythm with possible left atrial enlargement. A cardiogram with Doppler study revealed a normal left ventricular systolic function. Blood pressure 134/44 with a heart rate in the 70s, 98% on room air. White Blood cell count is normal, hemoglobin 13.1, platelet count 348. D-dimer 0.6, sodium 140, potassium 4.3, BUN 14, creatinine 0.7. Troponins 0.027, 0.029, 0.029. Drug screen positive for cocaine and marijuana. At the time of my examination, patient continued to complain of some chest discomfort, especially when he takes a deep breath. Past Medical History Past Medical History: Asthma, Chest Pain / Angina, Heart Failure, COPD, GERD/Reflux Additional Past Medical History / Comment(s): PUD, chronic low back pain, migraines, constipation. History of Any Multi-Drug Resistant Organisms: MRSA Date of last positivie culture/infection: 09/16/17 MDRO Source:: AXILLA Past Surgical History: Hernia Repair Additional Past Surgical History / Comment(s): Right inguinal hernia repair Past Anesthesia/Blood Transfusion Reactions: No Reported Reaction Smoking Status: Current every day smoker - Past Family History Father History Unknown: Yes Additional Family Medical History / Comment(s): Father at age 73 from a motor vehicle accident. Mother Family Medical History: Cancer Additional Family Medical History / Comment(s): Mom at age 56 from breast cancer with brain tumor and she also had mental health issues. Sister(s) Additional Family Medical History / Comment(s): Patient has 2 sisters with no major medical problems. Brother(s) Additional Family Medical History / Comment(s): Patient has 1 brother that was killed. Patient did not give details. Son(s) Additional Family Medical History / Comment(s): He has one son with no major medical problems. Medications and Allergies Home Medications Medication Instructions Recorded Confirmed Type No Known Home Medications 06/28/19 06/28/19 History Allergies Allergy/AdvReac Type Severity Reaction Status Date / Time peanut [Peanut Butter] Allergy Unknown Verified 06/28/19 23:02 tomato Allergy Unknown Verified 06/28/19 23:02 seafood Allergy Unknown Uncoded 06/28/19 22:08 Physical Exam Vitals: Vital Signs Temp Pulse Pulse Resp BP BP Pulse Ox 06/29/19 11:07 68 06/29/19 11:01 67 06/29/19 08:00 97.6 F 70 16 135/45 98 06/29/19 07:46 72 06/29/19 07:40 70 06/29/19 06:32 97.7 F 66 15 128/72 96 06/29/19 03:17 98.7 F 80 16 127/84 97 06/29/19 00:18 74 16 130/89 100 06/28/19 23:39 73 32 H 123/87 99 06/28/19 23:27 73 06/28/19 23:15 73 06/28/19 22:16 77 26 H 123/83 99 06/28/19 22:06 97.8 F 83 16 130/79 98 Intake and Output 06/28/19 06/29/19 06/29/19 22:59 06:59 14:59 Intake Total 988.998 Output Total 5 1999 Balance -2325 -1011.002 Intake: Intake, IV Titration 88.998 Amount Heparin Sod,Pork in 0.45% 88.998 NaCl 25,000 unit In 0.45 % NaCl 1 250ml.bag @ 12 UNITS/KG/HR 9.798 mls/hr IV .Q24H [facility] Rx#: [id number] Oral 900 Output: Urine 2324 1999 Other: Voiding Method Urinal # Voids 4 4 Weight 81.647 kg 81.647 kg PHYSICAL EXAMINATION: GENERAL: 51-year-old patient in no acute distress at the time of my examination HEENT: Head is atraumatic, normocephalic. Pupils equal, round. Sclera anicteric. Conjunctiva are clear. Mucous membranes of the mouth are moist. Neck is supple. There is no elevated jugular venous pressure. No carotid bruit is heard. HEART EXAMINATION: Heart S1, S2 normal. No murmur or gallop heard. CHEST EXAMINATION: Lungs are clear to auscultation and precussion. No chest wall tenderness is noted on palpation or with deep breathing. ABDOMEN: Soft, nontender. Bowel sounds are heard. No organomegaly noted. EXTREMITIES: 2+ peripheral pulses with no evidence of peripheral edema and no calf tenderness noted. NEUROLOGIC [patient is awake, alert and oriented 3 . Results 06/29/19 03:59 06/29/19 10:15 Cardiac Enzymes 06/28/19 06/28/19 06/29/19 Range/Units 22:15 22:15 03:57 AST 55 (17-59) U/L Troponin I 0.027 0.029 (0.000-0.034) ng/mL 06/29/19 06/29/19 Range/Units 10:15 10:15 AST 54 (17-59) U/L Troponin I 0.021 (0.000-0.034) ng/mL Coagulation 06/28/19 06/29/19 Range/Units 22:15 10:15 PT 9.8 (9.0-12.0) sec APTT 23.2 28.8 (22.0-30.0) sec CBC 06/28/19 06/29/19 Range/Units 22:15 03:59 WBC 7.0 (3.8-10.6) k/uL RBC 4.39 (4.30-5.90) m/uL Hgb 13.1 (13.0-17.5) gm/dL Hct 41.0 (39.0-53.0) % Plt Count 348 355 (150-450) k/uL Comprehensive Metabolic Panel 06/28/19 06/29/19 Range/Units 22:15 10:15 Sodium 142 140 (137-145) mmol/L Potassium 3.8 4.3 (3.5-5.1) mmol/L Chloride 110 H 105 (98-107) mmol/L Carbon Dioxide 22 23 (22-30) mmol/L BUN 9 14 (9-20) mg/dL Creatinine 0.77 0.76 (0.66-1.25) mg/dL Glucose 91 174 H (74-99) mg/dL Calcium 9.7 9.5 (8.4-10.2) mg/dL AST 55 54 (17-59) U/L ALT 41 40 (4-49) U/L Alkaline Phosphatase 106 104 (38-126) U/L Total Protein 7.4 7.9 (6.3-8.2) g/dL Albumin 4.2 4.5 (3.5-5.0) g/dL Current Medications Generic Name Dose Route Start Last Admin Trade Name Freq PRN Reason Stop Dose Admin Albuterol/Ipratropium 3 ml 06/29/19 08:00 06/29/19 11:00 Duoneb 0.5 Mg-3 Mg/3 Ml Soln INHALATION 3 ml RT-QID [facility] Administration Aspirin 325 mg 06/30/19 09:00 Aspirin PO DAILY [facility] Atorvastatin Calcium 80 mg 06/29/19 09:00 06/29/19 08:06 Lipitor PO 80 mg DAILY [facility] Administration Azithromycin 250 mg 06/30/19 07:00 Zithromax PO DAILY@0700 [facility] Heparin Sodium (Porcine) 0 unit 06/29/19 00:56 06/29/19 12:24 Heparin IV 4,000 unit Q6HR PRN Administration Low PTT Protocol Sodium Chloride 1,000 mls @ 100 mls/hr 06/29/19 01:00 06/29/19 12:20 Saline 0.9% IV Not Given .Q10H [facility] Heparin Sodium/Sodium Chloride 250 mls @ 9.798 mls/hr 06/29/19 01:00 06/29/19 12:26 25,000 unit/ Sodium Chloride IV 14.99 units/kg/hr .Q24H [facility] 12.239 mls/hr Titration Protocol 12 UNITS/KG/HR Metoprolol Tartrate 25 mg 06/29/19 09:00 06/29/19 08:06 Lopressor PO 25 mg BID [facility] Administration Morphine Sulfate 4 mg 01/07/20 00:56 Morphine Sulfate (Inj) IV Q4HR PRN Chest Pain Nitroglycerin 0.4 mg 06/29/19 00:56 Nitrostat SUBLINGUAL Q5M PRN Chest Pain Intake and Output 06/28/19 06/29/19 06/29/19 22:59 06:59 14:59 Intake Total 988.998 Output Total 2325 1999 Balance -2325 -1011.002 Intake: Intake, IV Titration 88.998 Amount Heparin Sod,Pork in 0.45% 88.998 NaCl 25,000 unit In 0.45 % NaCl 1 250ml.bag @ 12 UNITS/KG/HR 9.798 mls/hr IV .Q24H [facility] Rx#: [id number] Oral 900 Output: Urine 2324 1999 Other: Voiding Method Urinal # Voids 4 4 Weight 81.647 kg 81.647 kg Patient Weight 06/30/19 06:59 Weight 81.647 kg 06/29/19 03:59 06/29/19 10:15 EKG Interpretations (text) EKG shows normal sinus rhythm with no acute changes Assessment and Plan Plan: Assessment and plan #1 atypical chest pain, EKG shows normal sinus rhythm with no acute changes. Troponins 0.0-7, 0.029, 0.021. D-dimer 0.6, CT of the chest negative for pulmonary embolism. Echocardiogram with Doppler study showed a normal left ventricular systolic function #2 drug screen positive for cocaine and marijuana #3 nicotine dependence Plan Echocardiogram with Doppler study revealed a normal left ventricular systolic function. We will schedule patient for a stress echo tomorrow, discontinue the IV heparin. DNP note has been reviewed, I agree with a documented findings and plan of care. Patient was seen and examined.
[2019-06-29] MEDS: KETOROLAC 30 MG/ML 1 ML VIAL IVP SCH ×2 (16:02→23:06)
[2019-06-29] MEDS: ACETAMINOPHEN TAB 325 MG TAB PO PRN ×2 (16:03→23:10)
--- NOTE | 2019-06-29 16:03 | P.PN ---
Subjective Progress Note Date: 06/29/19 (delayed charting seen at 1030) Principal diagnosis: chest pain Patient is a 59 yo ameircan male with a history of coacine use, schizophrenia, and GERD who presented to the emergency department with complaints of chest pain. In the emergecy department he underwent an extensive evaluation. His initial vital signs were within normal limits. Initial laboratory analysis showed a mildly elevated d-dimer at 0.62 but was otherwise unremarkable. Initial troponin was negative and EKG is reviewed by myself revealed no signs of ischemia. Lipase was negative, UDS revealed cocaine and marijuana in his system. He was given morphine without relief of his chest pain was placed on heparin drip. He underwent a CT of the chest which showed patchy bilateral pulmonary interstitial edema. Chest x-ray revealed no acute cardiopulmonary disease. He was placed in chest pain off. The remainder of his troponins remained negative. He underwent an abdominal ultrasound which shows an echogenic foci within the gallbladder wall consistent with segmental adenomyomatosis. He continued to have significant chest pain that was worse with applying chest wall pressure, I ordered him a dose of Toradol and GI cocktail which did not provide much relief. He underwent echocardiogram which revealed LVH, ejection fraction 55-60%, and otherwise structurally normal heart. Patient seen and examined at bedside. He is resting comfortably is without diaphoretic or facial grimacing. He complains of continued substernal chest pain, left-sided chest pain, right upper quadrant pain, and left upper quadrant pain. He also complains of some shortness of breath and nausea but is requesting a grape juice. Objective - Vital Signs Vital signs: Vital Signs Temp 97.3 F L 06/29/19 15:35 Pulse 71 06/29/19 15:35 Resp 18 06/29/19 15:35 BP 107/63 06/29/19 15:35 Pulse Ox 95 06/29/19 15:35 Intake & Output 06/28/19 06/29/19 06/29/19 18:59 06:59 18:59 Intake Total 1838.998 Output Total 7739 2350 Balance -9168 -511.002 Weight 81.647 kg 81.647 kg Intake: Intake, IV Titration 338.998 Amount Azithromycin 500 mg In 250 Sodium Chloride 0.9% 250 ml @ 250 mls/hr [facility] Rx#:[id number] Heparin Sod,Pork in 0.45% 88.998 NaCl 25,000 unit In 0.45 % NaCl 1 250ml.bag @ 12 UNITS/KG/HR 9.798 mls/hr IV .Q24H [facility] Rx#: [id number] Oral 1500 Output: Urine 2325 2350 Other: Voiding Method Urinal # Voids 4 1 - Exam General: non toxic, no distress, appears at stated age Derm: warm, dry Head: atraumatic, normocephalic, symmetric Eyes: EOMI, no lid lag, anicteric sclera Mouth: no lip lesion, mucus membranes moist Cardiovascular: S1S2 reg, no murmur, positive posterior tibial pulse bilateral, + tenderness to palpation of chest wall Lungs: CTA bilateral, no rhonchi, no rales , no accessory muscle use Abdominal: soft, nontender to palpation, no guarding, no appreciable organomegaly Ext: no gross muscle atrophy, no edema, no contractures Neuro: CN II-XI grossly intact, no focal neuro deficits Psych: Alert, oriented, appropriate affect - Labs CBC & Chem 7: 06/29/19 03:59 06/29/19 10:15 Labs: Abnormal Lab Results - Last 24 Hours (Table) 06/28/19 06/28/19 06/29/19 Range/Units 22:15 22:15 06:25 D-Dimer 0.62 H (<0.60) mg/L FEU Chloride 110 H (98-107) mmol/L Glucose (74-99) mg/dL Urine Cocaine Screen Detected H (NotDetected) U Marijuana (THC) Screen Detected H (NotDetected) 06/29/19 Range/Units 10:15 D-Dimer (<0.60) mg/L FEU Chloride (98-107) mmol/L Glucose 174 H (74-99) mg/dL Urine Cocaine Screen (NotDetected) U Marijuana (THC) Screen (NotDetected) Assessment and Plan Assessment: Chest pain, acute coronary syndrome ruled out -Await cardiology consult -Aspirin, has been given a beta julio -Echocardiogram structurally normal -Plan is for stress test in a.m. -Given GI cocktail Toradol without relief Possible acute bronchitis - continue Zithromax therapy and DuoNeb GERD -Continue with PPI Tobacco abuse -Cessation -Nicotine replacement if needed Chronic: Schizophrenia Chronic back pain DVT prophylaxis: SCDs Discussed with: Patient, nursing Anticipated discharge: in AM Anticipated discharge place: home A total of 35 minutes was spent on the care of this complex patient more than 50% of the time was spent in counseling and care coordination.
[2019-06-29] MEDS: PANTOPRAZOLE 40 MG TABLET PO SCH (16:35)
[2019-06-30] MEDS ORDERED: AZITHROMYCIN 500 MG in SODIUM CHLORIDE 0.9% 250 ML IVPB SCH (03:00)
[2019-06-30] MEDS: ACETAMINOPHEN TAB 325 MG TAB PO PRN (05:53)
[2019-06-30] MEDS: KETOROLAC 30 MG/ML 1 ML VIAL IVP SCH ×2 (05:53→14:12)
[2019-06-30] MEDS: SODIUM CHLORIDE 0.9% 1,000 ML IV SCH (05:56)
[2019-06-30] MEDS: PANTOPRAZOLE 40 MG TABLET PO SCH (06:03)
[2019-06-30] MEDS ORDERED: AZITHROMYCIN 250 MG TAB PO SCH ×2 (07:00)
[2019-06-30 07:07] LABS: Mean Platelet Volume 8.2; Platelet Count 326 k/uL (150-450)
[2019-06-30 07:27] LABS: Cholesterol 137 mg/dL (<200); HDL Cholesterol 54 mg/dL (40-60); LDL Cholesterol,Calculated 68 mg/dL (0-99); Triglycerides 74 mg/dL (<150)
[2019-06-30] MEDS: IPRATROPIUM-ALBUTEROL 3 ML NEB INHALATION SCH ×3 (08:04→15:58)
[2019-06-30 08:51] VITALS: TEMP 97.9
[2019-06-30] MEDS ORDERED: ASPIRIN 325 MG TAB PO SCH (09:00)
[2019-06-30] MEDS ORDERED: DOBUTamine DRIP for NUC MED 500 MG in DEXTROSE/WATER 1 250ML.BAG IV ONE (10:54)
[2019-06-30] MEDS ORDERED: CAFFEINE CITRATE 60 MG/3 ML VIAL IV PRN (11:38)
[2019-06-30] MEDS ORDERED: AMINOPHYLLINE 500 MG/20 ML VIAL IV PRN (11:38)
[2019-06-30] MEDS ORDERED: DIPYRIDAMOLE 46 MG in SODIUM CHLORIDE 0.9% 40.8 ML IV ONE (11:45)
[2019-06-30] MEDS ORDERED: AMINOPHYLLINE 500 MG/20 ML VIAL IV ONE (12:40)
[2019-06-30 14:00] VITALS: BP 109/65; PULSE 54; RESP 16
--- NOTE | 2019-06-30 14:01 | EST ---
EXERCISE STRESS AGE: 59 SEX: M HT: 67" WT: 180 PROTOCOL: Lexiscan Cardiolite Stress Test HEART RATE REST: 55 BLOOD PRESSURE REST: 110/86 MAXIMUM HEART RATE ACHIEVED: 70 MAXIMUM BLOOD PRESSURE: 126/82 NDICATIONS: Chest pain. CLINICAL INFORMATION: Patient was given Lexiscan injection over a period of 10 seconds. Resting EKG shows normal sinus rhythm with normal NM interval and QRS duration and normal ST-T waves. No ST-segment depression suggestive of ischemia was noted. Occasional PVCs were noted. FINAL IMPRESSION: There is no evidence of any ST-segment depression to suggest ischemia during Lexiscan injection. The results of the nuclear study will follow. [id number] / IJN: [id number] /
[2019-06-30] MEDS: METOPROLOL TARTRATE 25 MG TAB PO SCH (14:11)
[2019-06-30] MEDS: ATORVASTATIN 80 MG TAB PO SCH (14:11)
--- NOTE | 2019-06-30 14:39 | P.PN ---
Subjective Progress Note Date: 06/30/19 This is a 59-year-old gentleman with no prior documented history of hypertension, no diabetes, no hyperlipidemia, patient does state that he had some heart issues about 20 years ago but is unsure exactly of what they were. He presents to the hospital on this occasion with symptoms of midsternal chest discomfort which she describes as a sharp pain in the center of his chest, worsens with deep breathing. He states that he's been having these symptoms off and on for the past couple of days, the time of my examination he continues to complain of pain. Chest x-ray on presentation here was normal. EKG showed normal sinus rhythm with no acute changes. CTA of the chest showed patchy bilateral pulmonary interstitial edema, no evidence of a pulmonary embolism. Ultrasound of the abdomen showed mild gallbladder wall thickening, segmental LAD no myometrial stenosis can be considered. Gallbladder is not enlarged. EKG showed normal sinus rhythm with possible left atrial enlargement. A cardiogram with Doppler study revealed a normal left ventricular systolic function. Blood pressure 134/44 with a heart rate in the 70s, 98% on room air. White Blood cell count is normal, hemoglobin 13.1, platelet count 348. D-dimer 0.6, sodium 140, potassium 4.3, BUN 14, creatinine 0.7. Troponins 0.027, 0.029, 0.029. Drug screen positive for cocaine and marijuana. At the time of my examination, patient continued to complain of some chest discomfort, especially when he takes a deep breath. 06/30/2019 Patient seen and examined this morning, complaining of chest discomfort when he takes a deep breath. He was ordered to have a stress echocardiographic study performed today although the patient could not walk the treadmill, they attempted a dobutamine echo however the patient's heart rate did not seem to increase appropriately. Therefore the patient underwent a Lexiscan stress test results of which are yet pending. Echocardiogram with Doppler study revealed a normal left ventricular systolic function. Objective - Vital Signs Vital signs: Vital Signs Temp 97.9 F 06/30/19 08:25 Pulse 54 L 06/30/19 14:00 Resp 16 06/30/19 14:00 BP 109/65 06/30/19 14:00 Pulse Ox 98 06/30/19 14:00 Intake & Output 06/29/19 06/30/19 06/30/19 18:59 06:59 18:59 Intake Total 1838.998 Output Total 2350 400 Balance -511.002 -400 Weight 81.647 kg 81 kg Intake: Intake, IV Titration 338.998 Amount Azithromycin 500 mg In 250 Sodium Chloride 0.9% 250 ml @ 250 mls/hr IVPB ONCE ONE Rx#:[id number] Heparin Sod,Pork in 0.45% 88.998 NaCl 25,000 unit In 0.45 % NaCl 1 250ml.bag @ 12 UNITS/KG/HR 9.798 mls/hr IV .Q24H CINTHIA Rx#: [id number] Oral 1500 Output: Urine 2350 400 Other: Voiding Method Urinal Toilet Toilet Urinal Urinal # Voids 1 1 1 - Exam PHYSICAL EXAMINATION: GENERAL: 51-year-old patient in no acute distress at the time of my examination HEENT: Head is atraumatic, normocephalic. Pupils equal, round. Sclera anicteric. Conjunctiva are clear. Mucous membranes of the mouth are moist. Neck is supple. There is no elevated jugular venous pressure. No carotid bruit is heard. HEART EXAMINATION: Heart S1, S2 normal. No murmur or gallop heard. CHEST EXAMINATION: Lungs are clear to auscultation and precussion. No chest wall tenderness is noted on palpation or with deep breathing. ABDOMEN: Soft, nontender. Bowel sounds are heard. No organomegaly noted. EXTREMITIES: 2+ peripheral pulses with no evidence of peripheral edema and no calf tenderness noted. NEUROLOGIC [patient is awake, alert and oriented 3 - Labs CBC & Chem 7: 06/30/19 06:19 06/29/19 10:15 Assessment and Plan Plan: Assessment and plan #1 atypical chest pain, EKG shows normal sinus rhythm with no acute changes. Troponins 0.0-7, 0.029, 0.021. D-dimer 0.6, CT of the chest negative for pulmonary embolism. Echocardiogram with Doppler study showed a normal left ventricular systolic function #2 drug screen positive for cocaine and marijuana #3 nicotine dependence Plan Echocardiogram with Doppler study revealed a normal left ventricular systolic function. If the patient's stress test is negative he may be able to be discharged home today from our perspective. DNP note has been reviewed, I agree with a documented findings and plan of care. Patient was seen and examined.
--- NOTE | 2019-06-30 14:46 | NM ---
EXAMINATION TYPE: NM stress persantine cardiolit DATE OF EXAM: 06/30/2019 COMPARISON: NONE HISTORY: Chest pain TECHNIQUE: After the intravenous administration of 10.6 mCi Tc 99m Sestamibi - Cardiolite resting SP ECT images acquired 45 minutes post injection. The patient received 0.4mg Lexiscan, 24.4 mCi Tc 99m Sestamibi - Stress images obtained [address] injection FINDINGS: No fixed defects are evident. There is likely stomach artifact causing artifactual loss of the inferi or wall on resting images. Stress images have a normal radiotracer distribution. No reversible perfus ion defects are evident. Ejection fraction of 44% is low. There appears to be some global hypokinesia. Some dyskinesia may be present during the initial contraction. IMPRESSION: No fixed or reversible perfusion defects are evident. 2. Low ejection fraction of 44%. Normal greater than 50%. 3. Mild dyskinesia with global hypokinesia.
--- NOTE | 2019-06-30 16:04 | P.DS ---
Providers Date of admission: 06/29/19 00:56 Expected date of discharge: 06/30/19 Attending physician: Davin Michelle MD Consults: 06/29/19 00:56 Consult Physician Urgent Consulting Provider: Noy Pittman Consult Reason/Comments: cp Do you want consulting provider notified?: Yes Primary care physician: [facility] Hospital Course: Discharge Diagnosis: Costochondritis Acute bronchitis Cocaine abuse GERD Tobacco abuse Schizophrenia Chronic back pain Hospital Course: Patient is a 59 yo ameircan male with a history of coacine use, schizophrenia, and GERD who presented to the emergency department with complaints of chest pain. In the emergecy department he underwent an extensive evaluation. His initial vital signs were within normal limits. Initial laboratory analysis showed a mildly elevated d-dimer at 0.62 but was otherwise unremarkable. Initial troponin was negative and EKG is reviewed by myself revealed no signs of ischemia. Lipase was negative, UDS revealed cocaine and marijuana in his system. He was given morphine without relief of his chest pain was placed on heparin drip. He underwent a CTA of the chest which showed patchy bilateral pulmonary interstitial edema. Chest x-ray revealed no acute cardiopulmonary disease. He was placed in chest pain off. The remainder of his troponins remained negative. He underwent an abdominal ultrasound which shows an echogenic foci within the gallbladder wall consistent with segmental adenomyomatosis. He continued to have significant chest pain that was worse with applying chest wall pressure, I ordered him a dose of Toradol and GI cocktail which did not provide much relief. He underwent echocardiogram which revealed LVH, ejection fraction 55-60%, and otherwise structurally normal heart. He underwent lexiscan stress test which showed no signs of reversible ischemia but slightly low EF and hypokinesis which is not consistent with echo. Discussed with cardio and cleared for discharge with outpatient follow-up. He has no true PCP and arrangement were made for him to follow-up with Dr. Griffiths after dis charge. Patient seen and examined at bedside. Still with some chest pain with deep inspiration, no shortness of breath. Vital signs reviewed and stable. General: non toxic, no distress, appears at stated age Derm: warm, dry Head: atraumatic, normocephalic, symmetric Eyes: EOMI, no lid lag, anicteric sclera Mouth: no lip lesion, mucus membranes moist Cardiovascular: S1S2 reg, no murmur, positive posterior tibial pulse bilateral, Lungs: Decreased bs bilateral, no rhonchi, no rales , no accessory muscle use Abdominal: soft, nontender to palpation, no guarding, no appreciable organomegaly Ext: no gross muscle atrophy, no edema, no contractures Neuro: CN II-XI grossly intact, no focal neuro deficits Psych: Alert, oriented, appropriate affect A total of 25 minutes of time were spent preparing this complex discharge summary . Patient Condition at Discharge: Stable Plan - Discharge Summary Discharge Rx Participant: No New Discharge Prescriptions: New Atorvastatin [Lipitor] 40 mg PO DAILY #30 tablet Pantoprazole [Protonix] 40 mg PO AC-BRKFST #30 tablet. Azithromycin [Zithromax] 250 mg PO DAILY@0700 #3 tab methylPREDNISolone [Medrol Dose Pack] 4 mg PO DIRECTED #1 pack Discharge Medication List Atorvastatin [Lipitor] 40 mg PO DAILY #30 tablet 06/30/19 [Rx] Azithromycin [Zithromax] 250 mg PO DAILY@0700 #3 tab 06/30/19 [Rx] Pantoprazole [Protonix] 40 mg PO AC-BRKFST #30 tablet. 06/30/19 [Rx] methylPREDNISolone [Medrol Dose Pack] 4 mg PO DIRECTED #1 pack 06/30/19 [Rx] Follow up Appointment(s)/Referral(s): Gabino Davidson MD [STAFF PHYSICIAN] - 07/13/19 2:15 pm (Friday) Luis Griffiths [STAFF PHYSICIAN] - 07/05/19 11:30 am (Friday) Activity/Diet/Wound Care/Special Instructions: Activity: as tolerated Diet: heart healthy
== END 2019-06-30 17:55 | disposition home or self-care (01) ==
LOC: EC 22:05 → 3SCARD 06-29 00:56
PROVIDERS: ADMIT Family Medicine; ATTEND Family Medicine
DX: M94.0 Chondrocostal junction syndrome [Tietze] (principal); J20.9 Acute bronchitis, unspecified; F14.10 Cocaine abuse, uncomplicated; R05 Cough; K21.9 Gastro-esophageal reflux disease without esophagitis; G89.29 Other chronic pain; M54.9 Dorsalgia, unspecified; F17.200 Nicotine dependence, unspecified, uncomplicated; F25.1 Schizoaffective disorder, depressive type; G43.909 Migraine, unspecified, not intractable, without status migrainosus; K59.00 Constipation, unspecified; Z86.14 Personal history of Methicillin resistant Staphylococcus aureus infection; F41.9 Anxiety disorder, unspecified; F31.9 Bipolar disorder, unspecified; Z82.49 Family history of ischemic heart disease and other diseases of the circulatory system; Z87.11 Personal history of peptic ulcer disease; Z80.8 Family history of malignant neoplasm of other organs or systems; J44.1 Chronic obstructive pulmonary disease with (acute) exacerbation; I50.9 Heart failure, unspecified; Z91.013 Allergy to seafood; Z91.018 Allergy to other foods
CPT/HCPCS: 96376 ×3; 96361 ×3; 93005 ×2; 96365 ×2; 96366; 96375 ×2; 99291; 36415; 94640 ×4; 93017; 93306; 85379; 83880; 80061; 80053 ×2; 83690; 83735; 84484 ×2; 85025; 85049 ×2; 85610; 85730 ×2; 80306; 71046; 76705; 71275; 78452; G0378 ×2; A9500; J2060; J1250; J1644 ×2; J1100; J1940; J2930; J0456; J0280; J1885 ×2; J1245; Q9967

== ENCOUNTER 2019-07-28 10:52 | Emergency (ER) | payer OTHER ==
[2019-07-28] MEDS ORDERED: IPRATROPIUM-ALBUTEROL 3 ML NEB INHALATION STA (11:22)
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
[2019-07-28 13:53] LABS: Amphetamine Screen,Urine Not Detected (NotDetected); Barbiturate Screen,Urine Not Detected (NotDetected); Benzodiazepines Screen,Urine Not Detected (NotDetected); Cocaine Screen,Urine Detected (NotDetected); Methadone Screen, Urine Not Detected (NotDetected); Opiate Screen,Urine Not Detected (NotDetected); Oxycodone Screen, Urine Not Detected (NotDetected); Phencyclidine Screen,Urine Not Detected (NotDetected); Tricyclic Antidepressant,Urine Detected (NotDetected); Urn Cannabinoid Scrn Detected (NotDetected)
[2019-07-28 16:04] VITALS: BP 141/76; PULSE 87; RESP 16; TEMP 98
== END 2019-07-28 16:08 | disposition home or self-care (01) ==
LOC: EC 10:52
DX: F14.10 Cocaine abuse, uncomplicated (principal); F12.10 Cannabis abuse, uncomplicated; R45.6 Violent behavior; F31.9 Bipolar disorder, unspecified; F41.9 Anxiety disorder, unspecified; F20.9 Schizophrenia, unspecified; I25.2 Old myocardial infarction; I50.9 Heart failure, unspecified; F17.200 Nicotine dependence, unspecified, uncomplicated; Z79.899 Other long term (current) drug therapy; Z91.010 Allergy to peanuts; Z91.018 Allergy to other foods; Z91.013 Allergy to seafood; Z86.14 Personal history of Methicillin resistant Staphylococcus aureus infection
CPT/HCPCS: 80306; 82075; 94640; 99285